=== PATIENT | male | born 1975 | race Caucasian/White ===

== ENCOUNTER → 2016-06-11 | Outpatient (CLI) | payer OTHER ==
--- NOTE | 2016-06-11 09:45 | NM ---
EXAMINATION TYPE: NM hepatobiliary w CCK DATE OF EXAM: 06/11/2016 9:27 AM COMPARISON: NONE HISTORY: Generalized abdominal pain TECHNIQUE: After the intravenous administration of 5.5 mCi Tc 99m Mebrofenin hepatobiliary scintigrap hy is performed. Immediate images post injection. FINDINGS: There is satisfactory initial accumulation of tracer by the liver. The gallbladder is visualized wit hin 6 minutes. The small bowel activity is noted within 8 minutes. At one hour CCK was administered , patient was injected with 1.6 mcg of Kinevac, and gallbladder ejection fraction is calculated at 28 %, which is below normal. Therefore there is no scintigraphic evidence of cystic or common bile jose j t obstruction to suggest acute cholecystitis or gallbladder dyskinesia. IMPRESSION: Abnormal low gallbladder ejection fraction
== END | disposition home or self-care (01) ==
LOC: RADNMMAIN 06:56
PROVIDERS: ATTEND Surgery
DX: R10.84 Generalized abdominal pain (principal)
CPT/HCPCS: 78227; A9537; J2805

== ENCOUNTER 2016-06-29 08:26 | Day surgery (SDC) | payer OTHER ==
[2016-06-24 11:47] VITALS: BMI 25.1
[~2016-06-29 08:26] MED LIST: DEXAMETHASONE SOD PHOSPHATE 10 MG/ML 1 ML VIAL IV ONE; HEPARIN SODIUM,PORCINE 5,000 UNIT/ML 1 ML VIAL SQ ONE; HYDROmorphone 1 MG/ML 1 ML SYRINGE IVP PRN; LACTATED RINGERS 1,000 ML IV SCH; MIDAZOLAM 2 MG/2 ML VIAL IV PRN; ONDANSETRON 4 MG/2 ML VIAL IVP ONE; ceFAZolin 2 GM in SODIUM CHLORIDE 0.9% 100 ML IVPB ONE
[2016-06-29] MEDS ORDERED: LIDOCAINE 1% 20 ML VIAL (10MG/ML) FOR IV START INTRADERMA ONE (09:01)
[2016-06-29] MEDS ORDERED: fentaNYL (PF) 50 MCG/ML 2 ML AMP IV ONE (09:09)
--- NOTE | 2016-06-29 09:34 | P.GSHP ---
History of Present Illness H&P Date: 06/29/16 Chief Complaint: Right upper quadrant pain This a 41-year-old male referred from Dr. Samson. Patient complaints of right upper quadrant pain. His recent HIDA scan shows a diminished ejection fraction consistent with biliary dyskinesia and chronic cholecystitis. - Constitutional Constitutional: Reports as per HPI Past Medical History Past Medical History: Deep Vein Thrombosis (DVT), Eye Disorder, GERD/Reflux, Musculoskeletal Disorder, Osteoarthritis (OA) Additional Past Medical History / Comment(s): LEFT EYE-" NMO" or neuromyelitis optica , HX OF FX X3 RIGHT LEG (RUN OVER BY HILO AT WORK), HX OF BOWEL RESECTION X6 WITH BOWEL PERFORATION AND WAS ON LIFE SUPPORT FOR 8 DAYS (2011). DIVERTICULOSIS, COLITIS. HX OF DVT LEG (2011), BIGEMINY WITH CARDIAC ABLATION. , HX OF HIATAL HERNIA WITH SURGERY., ARTHRITIS IN HIPS AND BACK, DDD WITH PAIN. , GENERALIZED WEAKNESS AND HAS BOUTS OF PARALYSIS SINCE SEPTEMBER 2014- HAVING TESTING FOR AUTO IMMUNE DISORDER., USES CANE ., PTS STATES HE IS HAVING NAUSEA AND VOMITING AND ABDOMINAL PAIN., HX OF C-DIFF (2011) History of Any Multi-Drug Resistant Organisms: None Reported Date of last positivie culture/infection: 2011 MDRO Source:: STOOL Past Surgical History: Appendectomy, Bowel Resection, Cardiac Ablation, Hernia Repair Additional Past Surgical History / Comment(s): BOWEL RESECTION X6- HAD BOWEL PERFORATION AND COLOSTOMY AND REVERSAL . (2011)., INGUINAL HERNIA , HIATAL HERNIA (FEB 2016), Past Anesthesia/Blood Transfusion Reactions: Previous Problems w/ Anesthesia Additional Past Anesthesia/Blood Transfusion Reaction / Comment(s): WOKE UP ONCE DURING SURGERY, POST-OP HEADACHE Past Psychological History: Anxiety, Depression Additional Psychological History / Comment(s): PTS STATES ANXIETY AND DEPRESSION COMES AND GOES- UNABLE TO WORK, CONSTANT PAIN, - NO RX. Smoking Status: Former smoker Past Alcohol Use History: Rare Additional Past Alcohol Use History / Comment(s): QUIT SMOKING 7-8 MONTHS AGO ( 2015). STARTED SMOKING AT AGE 10-11, SMOKED 1PPD THE LAST 3 YEARS Past Drug Use History: Marijuana Additional Drug Use History / Comment(s): NO MARIJUANA SINCE FEB 2016 - Past Family History Mother Family Medical History: No Reported History Father Family Medical History: AFIB, Cancer Additional Family Medical History / Comment(s): MELANOMA X2. FATHERS FAMILY HAS COLON CANCER HX. Medications and Allergies Home Medications Medication Instructions Recorded Confirmed Type Ascorbic Acid [Vitamin C] 1 tab PO DIRECTED 06/24/16 06/24/16 History Immune Booster Supplement 1 tab PO DAILY 06/24/16 06/24/16 History Allergies Allergy/AdvReac Type Severity Reaction Status Date / Time Iodinated Contrast Media - Allergy Severe Anaphylaxis Verified 06/24/16 11:21 Oral and [Iodinated Contrast Media - IV Dye] bee pollen Allergy Anaphylaxis Verified 06/24/16 11:21 shellfish derived [Shellfish] Allergy Anaphylaxis Verified 06/24/16 11:21 Sulfa (Sulfonamide Allergy low BP Verified 06/24/16 11:21 Antibiotics) Surgical - Exam Vital Signs Temp Pulse Resp BP Pulse Ox 97.6 F 69 18 122/84 99 06/29/16 08:58 06/29/16 08:58 06/29/16 08:58 06/29/16 08:58 06/29/16 08:58 - General well developed, no distress - Eyes PERRL - ENT normal pinna - Neck no masses - Respiratory normal expansion - Cardiovascular Rhythm: regular - Abdomen Mild right upper quadrant pain Abdomen: soft Assessment and Plan Plan: Right upper quadrant pain, abnormal HIDA scan. We'll perform laparoscopic cholecystectomy
[2016-06-29] MEDS ORDERED: PHENYLEPHRINE-0.9% NACL SYG 1 MG/10 ML SYRINGE ONE (09:49)
[2016-06-29] MEDS ORDERED: SUCCINYLCHOLINE CHLORIDE 100 MG/5 ML SYR IV ONE (09:49)
[2016-06-29] MEDS ORDERED: fentaNYL (PF) 50 MCG/ML 2 ML AMP ONE (09:49)
[2016-06-29] MEDS ORDERED: ROCURONIUM BROMIDE 10 MG/ML 10 ML VIAL IV ONE (09:49)
[2016-06-29] MEDS ORDERED: PROPOFOL 10 MG/ML 20 ML VIAL IV ONE (09:49)
[2016-06-29] MEDS ORDERED: GLYCOPYRROLATE 0.2 MG/ML 2 ML VIAL ONE (09:49)
[2016-06-29] MEDS ORDERED: NEOSTIGMINE 1 MG/ML 10 ML VIAL ONE (09:49)
[2016-06-29] MEDS ORDERED: MIDAZOLAM 2 MG/2 ML VIAL ONE (09:49)
[2016-06-29] MEDS ORDERED: BUPIVACAIN-EPI 0.25%-1:200,000 30 ML VIAL SQ ONE (10:12)
--- NOTE | 2016-06-29 10:53 | P.OP ---
Date of Procedure: 06/29/16 Preoperative Diagnosis: Cholecystitis Postoperative Diagnosis: Cholecystitis Procedure(s) Performed: Laparoscopic cholecystectomy Anesthesia: NIKOS Surgeon: Dimitri Crockett Estimated Blood Loss (ml): 5 Pathology: other (Gallbladder) Condition: stable Disposition: PACU Description of Procedure: The patient was placed on the operating table. The patient received a general endotracheal tube anesthesia. The patients abdomen was prepped and draped in the usual sterile fashion. The patient had extensive laparotomy scars on his abdomen. In the left upper quadrant a joann was made in the skin with a 11 blade and then a Veress needle was placed into the perineal cavity. And the abdomen was insufflated. After adequate insufflation a 5 mm blade less trocar was placed in the right lateral position under direct visitation. Following this the laparoscope was placed in the peritoneal cavity. There were extensive adhesions along the midline. Next using the 18-gauge needle for localization a area was found to the right of the midline where there was no adhesions and a 5 mm blade was trocar was placed into the peritoneal cavity. Next a fibrillar trocar was placed in the right subcostal position and then the adhesions to the midline were lysed using the Harmonic scissors. And then a 8 mm trocar was placed in the epigastric position. The gallbladder was grasped in the fundus and infundibulum. Traction on the gallbladder was placed in the lateral and the cephalad positions. The triangle of Calot was visualized.. The cystic duct was bluntly dissected until the union of the cystic duct and common bile duct was seen. The cystic duct was then divided and sealed with the Harmonic scissors. A PDS Endoloop was then placed throughout the cystic duct stump. The cystic artery divided and sealed with the Harmonic scissors. The gallbladder was then removed from the liver bed using Harmonic scissors. The gallbladder was then extracted through the epigastric port site. Operative field was checked for any bleeding spots and Harmonic scissors was used to coagulate the liver bed. The abdomen was irrigated. The trocars were removed. The skin was closed using interrupted 3- 0 Vicryl suture. Dermabond dressing were applied. The patient tolerated the procedure well.
[2016-06-29] MEDS ORDERED: LACTATED RINGERS 1,000 ML IV ONE (10:55)
[2016-06-29 11:00] VITALS: TEMP 98.2
[2016-06-29] MEDS ORDERED: MEPERIDINE 50 MG/ML SYRINGE IVP ONE (11:03)
[2016-06-29] MEDS ORDERED: HYDROmorphone 1 MG/ML 1 ML SYRINGE IVP ONE (11:27)
[2016-06-29] MEDS ORDERED: HYDROcodone/APAP 7.5-325MG 1 EACH TAB PO ONE (12:09)
[2016-06-29 12:47] VITALS: BP 102/70; PULSE 63; RESP 18
== END 2016-06-29 12:56 | disposition home or self-care (01) ==
LOC: OR 08:26
PROVIDERS: ATTEND Surgery
DX: K81.1 Chronic cholecystitis (principal); K66.0 Peritoneal adhesions (postprocedural) (postinfection); Z86.718 Personal history of other venous thrombosis and embolism; Z87.891 Personal history of nicotine dependence; Z79.891 Long term (current) use of opiate analgesic; Z88.9 Allergy status to unspecified drugs, medicaments and biological substances; Z88.2 Allergy status to sulfonamides; Z91.030 Bee allergy status; Z91.041 Radiographic dye allergy status; Z91.013 Allergy to seafood
CPT/HCPCS: 47562; 88304; J2250; J1644; J1100; J2710; J2175; J0690; J2405; J3010; J1170; J2370; J0330; J2704

== ENCOUNTER 2016-08-26 22:30 | Inpatient (IN) | payer OTHER ==
[2016-08-26] MEDS ORDERED: methylPREDNISolone SOD SUCCI 125 MG/2 ML VIAL IV STA (23:22)
--- NOTE | 2016-08-26 23:35 | ED ---
General Adult HPI - General Chief complaint: Eye Problems Stated complaint: Eye Problems Time Seen by Provider: 08/26/16 23:12 Source: patient Mode of arrival: ambulatory Limitations: no limitations - History of Present Illness Initial comments: Patient complains of pain around the eyes. He has a history of optic neuritis. He has a history of autoimmune disorder. Patient denies any fever, chills, chest pain or shortness of breath. He has no belly or back pain. He has no nausea or vomiting. He has no neck pain or stiffness. - Related Data Home Medications Medication Instructions Recorded Confirmed Fluocinonide/Emollient Base 1 applic TOPICAL BID 08/26/16 08/26/16 [Fluocinonide-E 0.05% Cream] Previous Rx's Medication Instructions Recorded HYDROcodone/APAP 7.5-325MG [[place] 1 tab PO Q6H PRN #28 tab 02/21/16 7.5-325] Allergies Allergy/AdvReac Type Severity Reaction Status Date / Time Iodinated Contrast Media - Allergy Severe Anaphylaxis Verified 08/26/16 23:32 Oral and [Iodinated Contrast Media - IV Dye] bee pollen Allergy Anaphylaxis Verified 08/26/16 23:32 shellfish derived [Shellfish] Allergy Anaphylaxis Verified 08/26/16 23:32 Sulfa (Sulfonamide Allergy low BP Verified 08/26/16 23:32 Antibiotics) Review of Systems ROS Statement: Those systems with pertinent positive or pertinent negative responses have been documented in the HPI. ROS Other: All systems not noted in ROS Statement are negative. Past Medical History Past Medical History: Deep Vein Thrombosis (DVT), Eye Disorder, GERD/Reflux, Musculoskeletal Disorder, Osteoarthritis (OA) Additional Past Medical History / Comment(s): LEFT EYE-" NMO" or neuromyelitis optica , HX OF FX X3 RIGHT LEG (RUN OVER BY DON AT WORK), HX OF BOWEL RESECTION X6 WITH BOWEL PERFORATION AND WAS ON LIFE SUPPORT FOR 8 DAYS (2011). DIVERTICULOSIS, COLITIS. HX OF DVT LEG (2011), BIGEMINY WITH CARDIAC ABLATION. , HX OF HIATAL HERNIA WITH SURGERY., ARTHRITIS IN HIPS AND BACK, DDD WITH PAIN. , GENERALIZED WEAKNESS AND HAS BOUTS OF PARALYSIS SINCE SEPTEMBER 2014- HAVING TESTING FOR AUTO IMMUNE DISORDER., USES CANE ., PTS STATES HE IS HAVING NAUSEA AND VOMITING AND ABDOMINAL PAIN., HX OF C-DIFF (2011) History of Any Multi-Drug Resistant Organisms: None Reported Date of last positivie culture/infection: 2011 MDRO Source:: STOOL Past Surgical History: Appendectomy, Bowel Resection, Cardiac Ablation, Hernia Repair Additional Past Surgical History / Comment(s): BOWEL RESECTION X6- HAD BOWEL PERFORATION AND COLOSTOMY AND REVERSAL . (2011)., INGUINAL HERNIA , HIATAL HERNIA (FEB 2016), Past Anesthesia/Blood Transfusion Reactions: Previous Problems w/ Anesthesia Additional Past Anesthesia/Blood Transfusion Reaction / Comment(s): WOKE UP ONCE DURING SURGERY, POST-OP HEADACHE Past Psychological History: Anxiety, Depression Additional Psychological History / Comment(s): PTS STATES ANXIETY AND DEPRESSION COMES AND GOES- UNABLE TO WORK, CONSTANT PAIN, - NO RX. Smoking Status: Former smoker Past Alcohol Use History: Rare Additional Past Alcohol Use History / Comment(s): QUIT SMOKING 7-8 MONTHS AGO ( 2015). STARTED SMOKING AT AGE 10-11, SMOKED 1PPD THE LAST 3 YEARS Past Drug Use History: Marijuana Additional Drug Use History / Comment(s): NO MARIJUANA SINCE FEB 2016 - Past Family History Mother Family Medical History: No Reported History Father Family Medical History: AFIB, Cancer Additional Family Medical History / Comment(s): MELANOMA X2. FATHERS FAMILY HAS COLON CANCER HX. General Exam Limitations: no limitations General appearance: alert, in no apparent distress Head exam: Present: atraumatic, normocephalic, normal inspection Eye exam: Present: normal appearance, PERRL, EOMI. Absent: scleral icterus, conjunctival injection, periorbital swelling ENT exam: Present: normal exam, mucous membranes moist Neck exam: Present: normal inspection. Absent: tenderness, meningismus, lymphadenopathy Respiratory exam: Present: normal lung sounds bilaterally. Absent: respiratory distress, wheezes, rales, rhonchi, stridor Cardiovascular Exam: Present: regular rate, normal rhythm, normal heart sounds. Absent: systolic murmur, diastolic murmur, rubs, gallop, clicks GI/Abdominal exam: Present: soft, normal bowel sounds. Absent: distended, tenderness, guarding, rebound, rigid Extremities exam: Present: normal inspection, full ROM, normal capillary refill. Absent: tenderness, pedal edema, joint swelling, calf tenderness Back exam: Present: normal inspection Neurological exam: Present: alert, oriented X3, CN II-XII intact Psychiatric exam: Present: normal affect, normal mood Skin exam: Present: warm, dry, intact, normal color. Absent: rash Course Vital Signs 08/26/16 22:38 Temperature 98.0 F Pulse Rate 18 L Respiratory 56 H Rate Blood Pressure 120/72 O2 Sat by Pulse 96 Oximetry Medical Decision Making - Medical Decision Making Patient presents with pain around the eyes. He likely has an optic neuritis. I ordered IV site Metro. I am constantly neurology. Patient will be admitted to the hospital. Disposition Clinical Impression: Optic neuritis Disposition: ADMITTED IP TO THIS HOSP Condition: Fair Time of Disposition: 23:35
[2016-08-26] MEDS ORDERED: NALOXONE 0.4 MG/ML 1 ML VIAL IV PRN (23:39)
[2016-08-26] MEDS ORDERED: ONDANSETRON 4 MG/2 ML VIAL IVP PRN (23:39)
[2016-08-26 23:48] LABS: CH 29.7; CHCM 34.4; HCT 46.5 % (39.0-53.0); HDW 2.55; HGB 15.8 gm/dL (13.0-17.5); MCH 29.4 pg (25.0-35.0); MCHC 34.1 g/dL (31.0-37.0); MCV 86.4 fL (80.0-100.0); Mean Platelet Volume 6.5; RBC 5.38 m/uL (4.30-5.90); RDW 13.1 % (11.5-15.5); WBC 9.6 k/uL (3.8-10.6)
[2016-08-26 23:59] LABS: ALT 35 U/L (21-72); AST 22 U/L (17-59); Alkaline Phosphatase 49 U/L (38-126); Anion Gap 13 mmol/L; Blood Urea Nitrogen 13 mg/dL (9-20); Calcium 10.2 mg/dL (8.4-10.2); Carbon Dioxide 24 mmol/L (22-30); Chloride 103 mmol/L (98-107); Glucose 97 mg/dL (74-99); Non-African American GFR(MDRD) >60 (>60 ml/min/1.73 sqM); Potassium 4.2 mmol/L (3.5-5.1); Sodium 140 mmol/L (137-145); Total Bilirubin 0.4 mg/dL (0.2-1.3); Total Protein 8.3 g/dL (6.3-8.2)
[2016-08-27] MEDS: HYDROcodone/APAP 5-325MG 1 EACH TAB PO PRN ×3 (00:16→08:17)
[2016-08-27 02:30] VITALS: BMI 27.1
[2016-08-27] MEDS: FAMOTIDINE 20 MG TAB PO SCH ×2 (08:18→22:16)
--- NOTE | 2016-08-27 11:15 | P.HPIM ---
History of Present Illness H&P Date: 08/27/16 Chief Complaint: Left eye pain This is a 41-year-old male, patient of Dr. Samson. 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 He has had workup at [facility]. His flareups are occurring about every 6-8 months. Patient reports sharp stabbing pain behind the left eye, blurry vision, twitching of the eye. As well as tightness around the gallop and I on the left side. He does also report some dizziness. Patient was given 1 dose of IV Solu-Medrol in the emergency room. Neurology has been consulted. He is reporting that his pain is not controlled. He also has chronic back pain. And takes Woodland. The Woodland is not helping his pain currently. Patient denies any nausea or vomiting, fevers chills or sweats. Denies any chest pain or shortness of breath. Denies any difficulty urinating. Denies any difficulty ambulating. Review of Systems Please refer to HPI otherwise unremarkable Past Medical History Past Medical History: Deep Vein Thrombosis (DVT), Eye Disorder, GERD/Reflux, Musculoskeletal Disorder, Osteoarthritis (OA) Additional Past Medical History / Comment(s): LEFT EYE-" NMO" or neuromyelitis optica , HX OF FX X3 RIGHT LEG (RUN OVER BY HILO AT WORK), HX OF BOWEL RESECTION X6 WITH BOWEL PERFORATION AND WAS ON LIFE SUPPORT FOR 8 DAYS (2011). DIVERTICULOSIS, COLITIS. HX OF DVT LEG (2011), BIGEMINY WITH CARDIAC ABLATION. , HX OF HIATAL HERNIA WITH SURGERY., ARTHRITIS IN HIPS AND BACK, DDD WITH PAIN. , GENERALIZED WEAKNESS AND HAS BOUTS OF PARALYSIS SINCE SEPTEMBER 2014- HAVING TESTING FOR AUTO IMMUNE DISORDER., USES CANE ., PTS STATES HE IS HAVING NAUSEA AND VOMITING AND ABDOMINAL PAIN., HX OF C-DIFF (2011) History of Any Multi-Drug Resistant Organisms: None Reported Date of last positivie culture/infection: 2011 MDRO Source:: STOOL Past Surgical History: Appendectomy, Bowel Resection, Cardiac Ablation, Hernia Repair Additional Past Surgical History / Comment(s): BOWEL RESECTION X6- HAD BOWEL PERFORATION AND COLOSTOMY AND REVERSAL . (2011)., INGUINAL HERNIA , HIATAL HERNIA (FEB 2016), Past Anesthesia/Blood Transfusion Reactions: Previous Problems w/ Anesthesia Additional Past Anesthesia/Blood Transfusion Reaction / Comment(s): WOKE UP ONCE DURING SURGERY, POST-OP HEADACHE Past Psychological History: Anxiety, Depression Additional Psychological History / Comment(s): PTS STATES ANXIETY AND DEPRESSION COMES AND GOES- UNABLE TO WORK, CONSTANT PAIN, - NO RX. Smoking Status: Former smoker Past Alcohol Use History: None Reported Additional Past Alcohol Use History / Comment(s): QUIT SMOKING 7-8 MONTHS AGO ( 2016). STARTED SMOKING AT AGE 10-11, SMOKED 1PPD THE LAST 3 YEARS Past Drug Use History: None Reported, Marijuana Additional Drug Use History / Comment(s): NO MARIJUANA SINCE FEB 2016 - Past Family History Mother Family Medical History: No Reported History Father Family Medical History: AFIB, Cancer Additional Family Medical History / Comment(s): MELANOMA X2. FATHERS FAMILY HAS COLON CANCER HX. Medications and Allergies Home Medications Medication Instructions Recorded Confirmed Type Fluocinonide/Emollient Base 1 applic TOPICAL BID 08/26/16 08/26/16 History [Fluocinonide-E 0.05% Cream] Allergies Allergy/AdvReac Type Severity Reaction Status Date / Time Iodinated Contrast Media - Allergy Severe Anaphylaxis Verified 08/26/16 23:32 Oral and [Iodinated Contrast Media - IV Dye] bee pollen Allergy Anaphylaxis Verified 08/26/16 23:32 shellfish derived [Shellfish] Allergy Anaphylaxis Verified 08/26/16 23:32 Sulfa (Sulfonamide Allergy low BP Verified 08/26/16 23:32 Antibiotics) Physical Exam Vitals: Vital Signs Temp Pulse Pulse Resp BP BP Pulse Ox 08/27/16 07:18 96.9 F L 83 16 106/67 96 08/27/16 01:29 97.4 F L 16 114/78 96 08/27/16 00:08 98.1 F 70 18 140/70 99 Intake and Output 08/26/16 08/27/16 08/27/16 22:59 06:59 14:59 Intake Total 240 Balance 240 Intake: Oral 240 Other: # Voids 1 Weight 85.9 kg 85.9 kg Patient Weight 08/28/16 06:59 Weight 85.9 kg Head normocephalic. Patient reports the left side of his for red and orbital area on the left side feels different wending palpated. Neck supple Lungs clear to auscultation bilaterally no wheezing or crackles Heart regular rate and rhythm S1-S2, no rub or gallop Abdomen is soft nontender nondistended positive bowel sounds no hepatosplenomegaly Extremities no edema Neuro alert and orientated to 3 Results CBC & Chem 7: 08/26/16 23:30 08/26/16 23:30 Thrombosis Risk Factor Assmnt - Choose All That Apply Any of the Below Risk Factors Present?: No Other Risk Factors: No Other congenital or acquired thrombophilia - If yes, enter type in comment: No Thrombosis Risk Factor Assessment Level: Very Low Risk Assessment and Plan Plan: 1. 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 Patient received 1 dose of IV Solu-Medrol. Neurology has been consulted. Nursing staff calling neurology for further steroid dosing. This is patient's third occurrence 2. Chronic back pain 3. History of GERD with previous Nissa fundoplication 4. History of diverticulitis and colitis requiring bowel resections colostomy and reversal of colostomy 5. History of cardiac arrhythmia requiring cardiac ablation 6. History of DVT of the leg over 4 years ago. He had completed anticoagulation treatment 7. Pain management: Resume patient's Woodland 7.5 also will add Dilaudid 1 mg every 4 hours as needed for breakthrough pain GI prophylaxis Pepcid and DVT prophylaxis Lovenox Time with Patient: Greater than 30 (Greater than 50% of the total time spent in counseling and coordination of care.I performed an examination of the patient and discussed their management with the physician Machine Heel Seat Laster. I have reviewed the Physician Machine Heel Seat Laster's notes and agree with the documented findings and plan of care)
[2016-08-27] MEDS: HYDROmorphone 1 MG/ML 1 ML SYRINGE IVP PRN ×3 (12:26→21:47)
[2016-08-27] MEDS: ENOXAPARIN 40 MG/0.4 ML SYRINGE SQ SCH (12:27)
[2016-08-27 13:30] LABS: Hemoglobin A1C 5.5 % (4.2-6.1)
[2016-08-27] MEDS: INSULIN LISPRO (humaLOG) 300 UNIT/3 ML VIAL SQ SCH ×4 (13:39→22:01)
--- NOTE | 2016-08-27 14:14 | MR ---
PRE AND POSTCONTRAST ENHANCED MRI OF THE BRAIN: CLINICAL HISTORY: Patient with neuromyelitis optica and headaches. COMPARISON: 01/02/2016 CONTRAST: 20 ML Multihance Multiplanar and multispin-echo imaging of the brain was performed both before and after the administr ation of contrast. The ventricles, basal cisterns and sulci overlying the cerebral convexities are within normal limits. There is no evidence for midline shift or mass effect. Acute intracranial hemorrhage or extra-axial collection is not evident. There are no abnormal areas of increased or decreased signal intensity within the brain parenchyma. Following contrast administration, there is no evidence for pathologic enhancement or enhancing mass. The paranasal sinuses and mastoid air cells are well-aerated. Optic nerves and globes appear symmetri c and unremarkable and unchanged from prior evaluation. IMPRESSION: Unremarkable pre and postcontrast enhanced MRI of the brain.
[2016-08-27] MEDS: HYDROcodone/APAP 7.5-325MG 1 EACH TAB PO PRN (15:13)
[2016-08-27 16:50] LABS: Glucose,Whole Blood 136 mg/dL (75-99)
[2016-08-27 22:07] LABS: Glucose,Whole Blood 135 mg/dL (75-99)
[2016-08-27] MEDS: BETAMETHASONE DIPROPIONATE 0.05% CREAM 15 GM TUBE TOPICAL SCH (22:14)
[2016-08-28] MEDS: HYDROcodone/APAP 7.5-325MG 1 EACH TAB PO PRN ×4 (00:30→19:06)
[2016-08-28] MEDS: HYDROmorphone 1 MG/ML 1 ML SYRINGE IVP PRN ×5 (02:10→20:53)
[2016-08-28 07:26] LABS: Glucose,Whole Blood 129 mg/dL (75-99)
[2016-08-28 07:45] LABS: Basophils % (A) 0 %; CH 29.7; CHCM 34.8; Eosinophils % (A) 0 %; HCT 44.7 % (39.0-53.0); HDW 2.48; HGB 14.9 gm/dL (13.0-17.5); Luc # (Auto) 0.04; Luc % (Auto) 0; Lymphocytes # (A) 1.6 k/uL (1.0-4.8); Lymphocytes % (A) 10 %; MCH 28.5 pg (25.0-35.0); MCHC 33.3 g/dL (31.0-37.0); MCV 85.7 fL (80.0-100.0); Mean Platelet Volume 6.4; Monocytes # (A) 0.2 k/uL (0-1.0); Monocytes % (A) 1 %; Neutrophils % (A) 89 %; RBC 5.22 m/uL (4.30-5.90); RDW 13.2 % (11.5-15.5); WBC 15.8 k/uL (3.8-10.6); WBC (Perox) 15.89
[2016-08-28 07:51] LABS: ALT 25 U/L (21-72); AST 18 U/L (17-59); Alkaline Phosphatase 47 U/L (38-126); Anion Gap 13 mmol/L; Blood Urea Nitrogen 11 mg/dL (9-20); Calcium 10.1 mg/dL (8.4-10.2); Carbon Dioxide 25 mmol/L (22-30); Chloride 101 mmol/L (98-107); Glucose 136 mg/dL (74-99); Non-African American GFR(MDRD) >60 (>60 ml/min/1.73 sqM); Sodium 139 mmol/L (137-145); Total Bilirubin 0.6 mg/dL (0.2-1.3)
[2016-08-28] MEDS: ENOXAPARIN 40 MG/0.4 ML SYRINGE SQ SCH (08:09)
[2016-08-28] MEDS: FAMOTIDINE 20 MG TAB PO SCH ×2 (08:12→20:53)
[2016-08-28] MEDS: INSULIN LISPRO (humaLOG) 300 UNIT/3 ML VIAL SQ SCH ×4 (08:12→22:06)
[2016-08-28] MEDS: BETAMETHASONE DIPROPIONATE 0.05% CREAM 15 GM TUBE TOPICAL SCH ×2 (08:12→20:53)
--- NOTE | 2016-08-28 11:35 | P.PN ---
Subjective This is a 41-year-old male, patient of Dr. Samson. 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 He has had workup at [facility]. His flareups are occurring about every 6-8 months. Patient reports sharp stabbing pain behind the left eye, blurry vision, twitching of the eye. Also some tightness around the scalp on the left side of his head. Patient has been on IV Solu-Medrol. He had an MRI of the brain completed which was negative. He is being treated for flareup of his neuromyelitis optica. Patient is noted some mild improvement in his pain. The blurry vision has resolved. Patient reports about 2 days since his last bowel movement. He has been started on stool softeners and was given prune juice. Also having some difficulty sleeping melatonin has been added. Pain is controlled with current regimen. He denies any chest pain, shortness of breath, nausea or vomiting. Denies any difficulty urinating. Objective - Vital Signs Vital signs: Vital Signs Temp 97.0 F L 08/28/16 07:24 Pulse 79 08/28/16 08:00 Resp 16 08/28/16 08:00 BP 112/80 08/28/16 07:24 Pulse Ox 95 08/28/16 07:24 Intake & Output 08/27/16 08/28/16 08/28/16 18:59 06:59 18:59 Intake Total 1510 850 320 Balance 1510 850 320 Weight 85.9 kg Intake: Intake, IV Titration 100 Amount methylPREDNISolone SOD 100 SUCC 500 mg In Sodium Chloride 0.9% 100 ml @ 100 mls/hr IVPB Q12HR RADHA Rx#:[id number] Oral 1410 850 320 Other: Voiding Method Toilet Toilet # Voids 1 2 - Exam Head normocephalic Neck supple Lungs clear to auscultation bilaterally no wheezing or crackles Heart regular rate and rhythm S1-S2, no rub or gallop Abdomen is soft nontender nondistended positive bowel sounds no hepatosplenomegaly Extremities no edema Neuro alert and orientated to 3 - Labs CBC & Chem 7: 08/28/16 07:06 08/28/16 07:06 Labs: Abnormal Lab Results - Last 24 Hours (Table) 08/27/16 08/27/16 08/28/16 Range/Units 16:36 21:56 07:06 WBC 15.8 H (3.8-10.6) k/uL Neutrophils # 14.0 H (1.3-7.7) k/uL Glucose (74-99) mg/dL POC Glucose (mg/dL) 136 H 135 H (75-99) mg/dL 08/28/16 08/28/16 Range/Units 07:06 07:17 WBC (3.8-10.6) k/uL Neutrophils # (1.3-7.7) k/uL Glucose 136 H (74-99) mg/dL POC Glucose (mg/dL) 129 H (75-99) mg/dL Assessment and Plan Plan: 1. 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 Continue IV Solu-Medrol 500 mg IV every 12 hours. MRI of the brain negative. Neurology consulted. Continue with current pain regimen with the IV Dilaudid and [place]. 2. Chronic back pain 3. History of GERD with previous Nissa fundoplication 4. History of diverticulitis and colitis requiring bowel resections colostomy and reversal of colostomy 5. History of cardiac arrhythmia requiring cardiac ablation 6. History of DVT of the leg over 4 years ago. He had completed anticoagulation treatment 7. Constipation: Prune juice, add Colace. Monitor. 8. Insomnia add melatonin GI prophylaxis Pepcid and DVT prophylaxis Lovenox I performed an examination of the patient and discussed their management with the physician Hospice Care Consultant. I have reviewed the Physician Hospice Care Consultant's notes and agree with the documented findings and plan of care
[2016-08-28 11:47] LABS: Glucose,Whole Blood 119 mg/dL (75-99)
[2016-08-28 14:37] LABS: Appearance,Urine Clear (Clear); Bilirubin,Urine Negative (Negative); Glucose,Urine (UA) Negative (Negative); Ketones,Urine Negative (Negative); Leukocyte Esterase,Urine Negative (Negative); Nitrite,Urine Negative (Negative); Protein,Urine Negative (Negative); Specific Gravity,Urine 1.008 (1.001-1.035); UA Billing (MACRO vs. MICRO) CHEM; Urobilinogen,Urine <2.0 mg/dL (<2.0)
[2016-08-28 17:06] LABS: Glucose,Whole Blood 112 mg/dL (75-99)
[2016-08-28] MEDS: DOCUSATE 100 MG CAP PO SCH (20:53)
[2016-08-28] MEDS: MELATONIN 3 MG TABLET PO SCH (20:53)
[2016-08-28 21:00] LABS: Glucose,Whole Blood 106 mg/dL (75-99)
[2016-08-29] MEDS: HYDROcodone/APAP 7.5-325MG 1 EACH TAB PO PRN ×4 (00:07→18:09)
[2016-08-29 07:07] LABS: Glucose,Whole Blood 166 mg/dL (75-99)
[2016-08-29 07:31] LABS: ALT 25 U/L (21-72); AST 18 U/L (17-59); Alkaline Phosphatase 39 U/L (38-126); Anion Gap 12 mmol/L; Blood Urea Nitrogen 19 mg/dL (9-20); Calcium 9.9 mg/dL (8.4-10.2); Carbon Dioxide 30 mmol/L (22-30); Chloride 99 mmol/L (98-107); Glucose 140 mg/dL (74-99); Non-African American GFR(MDRD) >60 (>60 ml/min/1.73 sqM); Potassium 4.4 mmol/L (3.5-5.1); Sodium 141 mmol/L (137-145); Total Bilirubin 0.6 mg/dL (0.2-1.3); Total Protein 7.7 g/dL (6.3-8.2)
[2016-08-29] MEDS: INSULIN LISPRO (humaLOG) 300 UNIT/3 ML VIAL SQ SCH ×4 (07:39→20:19)
[2016-08-29] MEDS: HYDROmorphone 1 MG/ML 1 ML SYRINGE IVP PRN ×4 (07:40→20:38)
[2016-08-29 07:57] LABS: Basophils % (A) 0 %; CH 29.5; CHCM 33.5; Eosinophils % (A) 0 %; HCT 44.6 % (39.0-53.0); HDW 2.42; HGB 14.7 gm/dL (13.0-17.5); Luc # (Auto) 0.05; Luc % (Auto) 0; Lymphocytes # (A) 1.2 k/uL (1.0-4.8); Lymphocytes % (A) 8 %; MCH 29.1 pg (25.0-35.0); MCHC 32.9 g/dL (31.0-37.0); MCV 88.5 fL (80.0-100.0); Mean Platelet Volume 6.9; Monocytes # (A) 0.1 k/uL (0-1.0); Monocytes % (A) 1 %; Neutrophils # (A) 12.5 k/uL (1.3-7.7); Neutrophils % (A) 90 %; RBC 5.04 m/uL (4.30-5.90); RDW 13.3 % (11.5-15.5); WBC 13.8 k/uL (3.8-10.6)
[2016-08-29] MEDS: BETAMETHASONE DIPROPIONATE 0.05% CREAM 15 GM TUBE TOPICAL SCH ×2 (08:43→20:17)
[2016-08-29] MEDS: FAMOTIDINE 20 MG TAB PO SCH ×2 (08:47→20:17)
[2016-08-29] MEDS: ENOXAPARIN 40 MG/0.4 ML SYRINGE SQ SCH (08:47)
[2016-08-29] MEDS: DOCUSATE 100 MG CAP PO SCH ×2 (08:47→20:17)
--- NOTE | 2016-08-29 10:53 | P.PN ---
Subjective Patient is feeling better today. No events overnight. Objective - Vital Signs Vital signs: Vital Signs Temp 98.1 F 08/29/16 07:00 Pulse 79 08/29/16 07:00 Resp 17 08/29/16 07:00 BP 110/70 08/29/16 07:00 Pulse Ox 97 08/29/16 07:00 Intake & Output 08/28/16 08/29/16 08/29/16 18:59 06:59 18:59 Intake Total 790 Balance 790 Weight 85.9 kg Intake: Oral 790 Other: Voiding Method Toilet Toilet Toilet # Voids 2 2 1 - Exam General: The patient is awake and alert, in no distress Eye: there is normal conjunctiva bilaterally. Neck: The neck is supple, there is no JVD. Cardiovascular: Normal S1-S2, no S3-S4, no murmurs. Respiratory: Lungs clear to auscultation bilaterally Gastrointestinal: Abdomen is soft, nontender Musculoskeletal: There is no pedal edema. Neurological:. Speech is normal. Skin: Skin is warm and dry - Labs CBC & Chem 7: 08/29/16 06:12 08/29/16 06:12 Labs: Abnormal Lab Results - Last 24 Hours (Table) 08/28/16 08/28/16 08/29/16 Range/Units 17:01 20:40 06:12 WBC 13.8 H (3.8-10.6) k/uL Neutrophils # 12.5 H (1.3-7.7) k/uL Glucose (74-99) mg/dL POC Glucose (mg/dL) 112 H 106 H (75-99) mg/dL 08/29/16 08/29/16 Range/Units 06:12 06:49 WBC (3.8-10.6) k/uL Neutrophils # (1.3-7.7) k/uL Glucose 140 H (74-99) mg/dL POC Glucose (mg/dL) 166 H (75-99) mg/dL Assessment and Plan Plan: 1. 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 Continue IV Solu-Medrol 500 mg IV every 12 hours. MRI of the brain negative. Neurology consulted. Continue with current pain regimen with the IV Dilaudid and [place]. 2. Chronic back pain 3. History of GERD with previous Nissa fundoplication 4. History of diverticulitis and colitis requiring bowel resections colostomy and reversal of colostomy 5. History of cardiac arrhythmia requiring cardiac ablation 6. History of DVT of the leg over 4 years ago. He had completed anticoagulation treatment 7. Constipation: Prune juice, add Colace. Monitor. 8. Insomnia add melatonin GI prophylaxis Pepcid and DVT prophylaxis Lovenox
[2016-08-29 11:48] LABS: Glucose,Whole Blood 116 mg/dL (75-99)
[2016-08-29 17:00] LABS: Glucose,Whole Blood 121 mg/dL (75-99)
[2016-08-29 20:17] LABS: Glucose,Whole Blood 139 mg/dL (75-99)
[2016-08-29] MEDS: MELATONIN 3 MG TABLET PO SCH (20:17)
[2016-08-29] MEDS ORDERED: HYDROcodone/APAP 7.5-325MG 1 EACH TAB ONE (23:52)
[2016-08-30] MEDS ORDERED: HYDROmorphone 1 MG/ML 1 ML SYRINGE ONE (01:00)
[2016-08-30] MEDS: HYDROmorphone 1 MG/ML 1 ML SYRINGE IVP PRN ×5 (04:11→22:42)
[2016-08-30] MEDS: HYDROcodone/APAP 7.5-325MG 1 EACH TAB PO PRN ×3 (05:46→21:19)
[2016-08-30 06:55] LABS: Glucose,Whole Blood 151 mg/dL (75-99)
[2016-08-30 07:10] LABS: Basophils % (A) 0 %; CH 29.7; Eosinophils % (A) 0 %; HDW 2.54; Luc # (Auto) 0.04; Luc % (Auto) 0; Lymphocytes # (A) 1.5 k/uL (1.0-4.8); Lymphocytes % (A) 9 %; MCH 28.9 pg (25.0-35.0); Mean Platelet Volume 6.7; Monocytes # (A) 0.6 k/uL (0-1.0); Monocytes % (A) 4 %; Neutrophils # (A) 13.9 k/uL (1.3-7.7); Neutrophils % (A) 87 %; RBC 4.82 m/uL (4.30-5.90); WBC 16.1 k/uL (3.8-10.6); WBC (Perox) 16.43
[2016-08-30 07:30] LABS: ALT 21 U/L (21-72); AST 15 U/L (17-59); Alkaline Phosphatase 39 U/L (38-126); Anion Gap 11 mmol/L; Blood Urea Nitrogen 13 mg/dL (9-20); Calcium 9.5 mg/dL (8.4-10.2); Carbon Dioxide 29 mmol/L (22-30); Chloride 98 mmol/L (98-107); Glucose 157 mg/dL (74-99); Non-African American GFR(MDRD) >60 (>60 ml/min/1.73 sqM); Sodium 138 mmol/L (137-145); Total Bilirubin 0.5 mg/dL (0.2-1.3); Total Protein 7.1 g/dL (6.3-8.2)
[2016-08-30] MEDS: INSULIN LISPRO (humaLOG) 300 UNIT/3 ML VIAL SQ SCH ×4 (07:52→22:36)
[2016-08-30] MEDS: DOCUSATE 100 MG CAP PO SCH ×2 (08:22→21:20)
[2016-08-30] MEDS: ENOXAPARIN 40 MG/0.4 ML SYRINGE SQ SCH (08:22)
[2016-08-30] MEDS: BETAMETHASONE DIPROPIONATE 0.05% CREAM 15 GM TUBE TOPICAL SCH ×2 (08:23→22:35)
[2016-08-30] MEDS: FAMOTIDINE 20 MG TAB PO SCH ×2 (08:23→21:20)
[2016-08-30 11:43] LABS: Glucose,Whole Blood 115 mg/dL (75-99)
--- NOTE | 2016-08-30 14:21 | P.PN ---
Subjective Patient is feeling better today. No events overnight. Objective - Vital Signs Vital signs: Vital Signs Temp 97.5 F L 08/30/16 07:00 Pulse 74 08/30/16 07:00 Resp 16 08/30/16 07:00 BP 110/71 08/30/16 07:00 Pulse Ox 95 08/30/16 07:00 Intake & Output 08/29/16 08/30/16 08/30/16 18:59 06:59 18:59 Intake Total 500 480 500 Balance 500 480 500 Intake: Oral 500 480 500 Other: Voiding Method Toilet Toilet Toilet # Voids 2 2 3 - Exam General: The patient is awake and alert, in no distress Eye: there is normal conjunctiva bilaterally. Neck: The neck is supple, there is no JVD. Cardiovascular: Normal S1-S2, no S3-S4, no murmurs. Respiratory: Lungs clear to auscultation bilaterally Gastrointestinal: Abdomen is soft, nontender Musculoskeletal: There is no pedal edema. Neurological:. Speech is normal. Skin: Skin is warm and dry - Labs CBC & Chem 7: 08/30/16 06:24 08/30/16 06:24 Labs: Abnormal Lab Results - Last 24 Hours (Table) 08/29/16 08/29/16 08/30/16 Range/Units 16:57 20:07 06:24 WBC 16.1 H (3.8-10.6) k/uL Neutrophils # 13.9 H (1.3-7.7) k/uL Creatinine (0.66-1.25) mg/dL Glucose (74-99) mg/dL POC Glucose (mg/dL) 121 H 139 H (75-99) mg/dL AST (17-59) U/L 08/30/16 08/30/16 08/30/16 Range/Units 06:24 06:49 11:38 WBC (3.8-10.6) k/uL Neutrophils # (1.3-7.7) k/uL Creatinine 0.64 L (0.66-1.25) mg/dL Glucose 157 H (74-99) mg/dL POC Glucose (mg/dL) 151 H 115 H (75-99) mg/dL AST 15 L (17-59) U/L Assessment and Plan Plan: 1. 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 Continue IV Solu-Medrol 500 mg IV every 12 hours. MRI of the brain negative. Neurology consulted but has not seen the patient he had. Nurse with double check that they are notified. Usually patient hit 5 days course of high-dose Solu-Medrol. Continue with current pain regimen with the IV Dilaudid and [place]. 2. Chronic back pain 3. History of GERD with previous Nissa fundoplication 4. History of diverticulitis and colitis requiring bowel resections colostomy and reversal of colostomy 5. History of cardiac arrhythmia requiring cardiac ablation 6. History of DVT of the leg over 4 years ago. He had completed anticoagulation treatment 7. Constipation: Prune juice, add Colace. Monitor. 8. Insomnia add melatonin GI prophylaxis Pepcid and DVT prophylaxis Lovenox
[2016-08-30 17:00] LABS: Glucose,Whole Blood 128 mg/dL (75-99)
[2016-08-30 20:00] LABS: Glucose,Whole Blood 136 mg/dL (75-99)
[2016-08-30] MEDS: MELATONIN 3 MG TABLET PO SCH (21:20)
[2016-08-31] MEDS: HYDROmorphone 1 MG/ML 1 ML SYRINGE IVP PRN ×5 (03:06→21:59)
[2016-08-31] MEDS: HYDROcodone/APAP 7.5-325MG 1 EACH TAB PO PRN ×3 (05:06→20:39)
[2016-08-31 08:02] LABS: Glucose,Whole Blood 131 mg/dL (75-99)
[2016-08-31 08:16] LABS: Basophils % (A) 0 %; CH 29.3; CHCM 34.1; Eosinophils % (A) 0 %; HCT 43.7 % (39.0-53.0); HDW 2.41; HGB 14.9 gm/dL (13.0-17.5); Luc # (Auto) 0.07; Luc % (Auto) 1; Lymphocytes # (A) 1.4 k/uL (1.0-4.8); Lymphocytes % (A) 10 %; MCH 29.5 pg (25.0-35.0); MCHC 34.2 g/dL (31.0-37.0); MCV 86.2 fL (80.0-100.0); Mean Platelet Volume 6.5; Monocytes # (A) 0.4 k/uL (0-1.0); Monocytes % (A) 3 %; Neutrophils # (A) 12.4 k/uL (1.3-7.7); Neutrophils % (A) 87 %; RBC 5.06 m/uL (4.30-5.90); WBC 14.2 k/uL (3.8-10.6); WBC (Perox) 14.98
[2016-08-31] MEDS: INSULIN LISPRO (humaLOG) 300 UNIT/3 ML VIAL SQ SCH ×4 (08:31→20:50)
[2016-08-31] MEDS: ENOXAPARIN 40 MG/0.4 ML SYRINGE SQ SCH (08:33)
[2016-08-31] MEDS: DOCUSATE 100 MG CAP PO SCH ×2 (08:33→20:38)
[2016-08-31] MEDS: BETAMETHASONE DIPROPIONATE 0.05% CREAM 15 GM TUBE TOPICAL SCH ×2 (08:33→20:37)
[2016-08-31] MEDS: FAMOTIDINE 20 MG TAB PO SCH ×2 (08:34→20:38)
[2016-08-31 08:35] LABS: ALT 26 U/L (21-72); AST 13 U/L (17-59); Alkaline Phosphatase 37 U/L (38-126); Anion Gap 10 mmol/L; Blood Urea Nitrogen 18 mg/dL (9-20); Calcium 9.6 mg/dL (8.4-10.2); Carbon Dioxide 30 mmol/L (22-30); Chloride 98 mmol/L (98-107); Glucose 125 mg/dL (74-99); Non-African American GFR(MDRD) >60 (>60 ml/min/1.73 sqM); Potassium 4.9 mmol/L (3.5-5.1); Sodium 138 mmol/L (137-145); Total Bilirubin 0.5 mg/dL (0.2-1.3); Total Protein 7.1 g/dL (6.3-8.2)
--- NOTE | 2016-08-31 10:10 | P.PN ---
Subjective This is a 41-year-old male, patient of Dr. Samson. 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 He has had workup at [facility]. His flareups are occurring about every 6-8 months. Patient reports sharp stabbing pain behind the left eye, blurry vision, twitching of the eye. Also some tightness around the scalp on the left side of his head. Patient has been on IV Solu-Medrol. He had an MRI of the brain completed which was negative. He is being treated for flareup of his neuromyelitis optica. Patient is noted some mild improvement in his pain. The blurry vision has resolved. Patient reports about 2 days since his last bowel movement. He has been started on stool softeners and was given prune juice. Also having some difficulty sleeping melatonin has been added. Pain is controlled with current regimen. He denies any chest pain, shortness of breath, nausea or vomiting. Denies any difficulty urinating. 08/31/2016 patient is reporting improvement in the left eye pain. Vision is back to normal. He is on day 4 of steroids usually does 5 days a steroids. Awaiting neurology evaluation. Patient reports having bowel movements. Having issues with urinary frequency and difficulty starting urine stream. Urinalysis and culture were negative for any UTI. Patient reports no prior history of prostate problems. Symptoms have been going on for the last 2-3 months. Patient was bladder scan no evidence of urinary retention Objective - Vital Signs Vital signs: Vital Signs Temp 97.7 F 08/31/16 07:00 Pulse 57 L 08/31/16 08:00 Resp 18 08/31/16 08:00 BP 116/76 08/31/16 07:00 Pulse Ox 97 08/30/16 23:00 Intake & Output 08/30/16 08/31/16 08/31/16 18:59 06:59 18:59 Intake Total 500 790 Balance 500 790 Weight 85.9 kg Intake: Oral 500 790 Other: Voiding Method Toilet Toilet Toilet # Voids 3 2 2 - Exam Head normocephalic Neck supple Lungs clear to auscultation bilaterally no wheezing or crackles Heart regular rate and rhythm S1-S2, no rub or gallop Abdomen is soft nontender nondistended positive bowel sounds no hepatosplenomegaly Extremities no edema Neuro alert and orientated to 3 - Labs CBC & Chem 7: 08/31/16 07:40 08/31/16 07:40 Labs: Abnormal Lab Results - Last 24 Hours (Table) 08/30/16 08/30/16 08/30/16 Range/Units 11:38 16:56 19:57 WBC (3.8-10.6) k/uL Neutrophils # (1.3-7.7) k/uL Glucose (74-99) mg/dL POC Glucose (mg/dL) 115 H 128 H 136 H (75-99) mg/dL AST (17-59) U/L Alkaline Phosphatase (38-126) U/L 08/31/16 08/31/16 08/31/16 Range/Units 07:40 07:40 08:01 WBC 14.2 H (3.8-10.6) k/uL Neutrophils # 12.4 H (1.3-7.7) k/uL Glucose 125 H (74-99) mg/dL POC Glucose (mg/dL) 131 H (75-99) mg/dL AST 13 L (17-59) U/L Alkaline Phosphatase 37 L (38-126) U/L Assessment and Plan Plan: 1. 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 Continue IV Solu-Medrol 500 mg IV every 12 hours. MRI of the brain negative. Neurology was consulted. They have still not seen the patient. Discussed with nursing staff to anibal neurologist. Continue with current pain regimen with the IV Dilaudid and [place]. 2. Chronic back pain 3. History of GERD with previous Nissa fundoplication 4. History of diverticulitis and colitis requiring bowel resections colostomy and reversal of colostomy 5. History of cardiac arrhythmia requiring cardiac ablation 6. History of DVT of the leg over 4 years ago. He had completed anticoagulation treatment 7. Constipation: Prune juice, add Colace. Monitor. 8. Insomnia add melatonin GI prophylaxis Pepcid and DVT prophylaxis Lovenox I performed an examination of the patient and discussed their management with the physician Energy Attorney. I have reviewed the Physician Energy Attorney's notes and agree with the documented findings and plan of care
[2016-08-31 11:29] LABS: Glucose,Whole Blood 141 mg/dL (75-99)
[2016-08-31 17:10] LABS: Glucose,Whole Blood 126 mg/dL (75-99)
[2016-08-31] MEDS: TAMSULOSIN 0.4 MG CAP.ER.24H PO SCH (18:25)
[2016-08-31 20:16] LABS: Glucose,Whole Blood 143 mg/dL (75-99)
[2016-08-31] MEDS: MELATONIN 3 MG TABLET PO SCH (20:37)
[2016-09-01] MEDS: HYDROmorphone 1 MG/ML 1 ML SYRINGE IVP PRN (02:39)
[2016-09-01 07:27] LABS: Glucose,Whole Blood 144 mg/dL (75-99)
[2016-09-01] MEDS: HYDROcodone/APAP 7.5-325MG 1 EACH TAB PO PRN ×3 (08:20→23:50)
[2016-09-01] MEDS: INSULIN LISPRO (humaLOG) 300 UNIT/3 ML VIAL SQ SCH ×4 (08:25→23:25)
[2016-09-01] MEDS: BETAMETHASONE DIPROPIONATE 0.05% CREAM 15 GM TUBE TOPICAL SCH ×2 (08:26→19:55)
[2016-09-01] MEDS: DOCUSATE 100 MG CAP PO SCH ×2 (08:26→19:56)
[2016-09-01] MEDS: ENOXAPARIN 40 MG/0.4 ML SYRINGE SQ SCH (08:27)
[2016-09-01] MEDS: FAMOTIDINE 20 MG TAB PO SCH ×2 (08:27→19:56)
--- NOTE | 2016-09-01 09:31 | CONS ---
DATE OF CONSULTATION: 08/31/2016 CHIEF COMPLAINT: Visual changes. HISTORY OF PRESENT ILLNESS: Mr. Valencia is a 41-year-old male who is being evaluated today on 08/31/16 by the neurology service per the request of Dr. Maurer for visual changes. The patient was brought into [facility] Emergency Room with complaints of blurred vision involving the left eye. He was also having severe eye pain, which he describes as a dull pain that can be sharp at times. The patient does have a left visual field cut involving the left eye but this is chronic. The patient has had several episodes of optic neuritis in the past. He has been worked up at [facility] and at [facility] neurology departments. Initially, he was thought to have neuromyelitis optica. The patient is unclear if his blood test was positive for this. He did have an MRI of the brain on this admission, which was within normal limits. He has been started on IV Solu-Medrol. The patient was actually admitted on 08/28/16 and neurology consultation was put in for Dr. Smyth. It was later discovered today that Dr. Smyth is not taking call and I was contacted with this consultation today. At the time of my evaluation, the patient reports that his blurred vision and eye pain are greater than 90% improved. He continues to have a left visual field cut involving the left eye, which is his baseline. His CBC today showed mild leukocytosis at 14.2, likely related to his IV steroid infusion. His comprehensive metabolic profile and urinalysis were normal. The patient states that he has not had a recent MRI of the cervical spine. PAST MEDICAL HISTORY: 1. Recurrent optic neuritis. 2. History of deep venous thrombosis. 3. Osteoarthritis. 4. Possible neuromyelitis optica history. 5. Depression, anxiety disorder. 6. History of bowel resection. 7. Cardiac ablation. 8. Hernia repair. 9. Appendectomy. SOCIAL HISTORY: The patient quit smoking approximately 8 months ago. He denies any alcohol or IV drug use. FAMILY HISTORY: Positive for heart disease and cancer. HOME MEDICATIONS: Reviewed in the chart. ALLERGIES: IV DYE, SHELLFISH, SULFA DRUGS, BEE POLLEN. REVIEW OF SYSTEMS: CONSTITUTIONAL: Negative. EYES: As mentioned above. ENT: Negative. CARDIOVASCULAR: Negative. RESPIRATORY: Negative. NEUROLOGICAL: As mentioned above. He denied any lateralizing numbness or weakness. GASTROINTESTINAL: Positive for occasional heartburn. GENITOURINARY: Negative. MUSCULOSKELETAL: Positive for frequent joint pain. PSYCHIATRIC: Positive for history of depression and anxiety. DERMATOLOGICAL: Negative. ENDOCRINE: Negative. PHYSICAL EXAM: Vital signs show a temperature of 98.2, pulse 81, respirations 16, blood pressure 128/75. GENERAL APPEARANCE: The patient is a well-developed male who appears to be in no acute distress. HEENT: Normocephalic, atraumatic, no facial asymmetry is seen. Extraocular muscles are intact. He does have a left visual field cut involving his left eye only. Neck is supple with no masses felt. CARDIOVASCULAR: Regular rate and rhythm. ABDOMEN: Nontender, nondistended. Extremities showed no edema or clubbing. NEUROLOGICAL EXAM: The patient is alert, aware, and oriented x3. Speech and language are normal. Cranial nerve testing was normal except for left eye lateral visual field cut as mentioned above. Strength is full in all 4 extremities. Sensory exam was normal to light touch in all 4 extremities. Gait was normal. No tremors or seizure-like activity is seen. No dysmetria is noticed on kewbyf-huyy-rxqosz testing. IMPRESSION: 1. Optic neuritis, left eye. 2. Blurred vision. 3. Left eye pain. 4. Questionable demyelinating disease, neuromyelitis optica. RECOMMENDATIONS: The patient's symptoms have significantly improved as mentioned above. I will keep him on Solu-Medrol 500mg IV q12 hours and he will receive his last dose tonight. The patient will be cleared from a neurology standpoint tomorrow morning for discharge. He will need an updated MRI of the cervical spine, which will be done in the outpatient setting. A VEP will also be ordered in the outpatient setting. The patient Dr. Smyth in the past and he will follow up with him after discharge. Continue the rest of your current workup and management. I will continue to follow with you. Further recommendations to follow. I reviewed the entire workup with the patient including his MRI of the brain with and without contrast, which was normal and he was reassured from that standpoint. Thank you for allowing me to participate in the care of your patient. If you have any questions, please feel free to contact me. JUDY
[2016-09-01 12:18] LABS: Glucose,Whole Blood 127 mg/dL (75-99)
[2016-09-01 17:35] LABS: Glucose,Whole Blood 140 mg/dL (75-99)
[2016-09-01] MEDS: TAMSULOSIN 0.4 MG CAP.ER.24H PO SCH (18:35)
--- NOTE | 2016-09-01 19:36 | P.PN ---
Subjective Principal diagnosis: optic neuritis This is a 41-year-old male, patient of Dr. Samson. 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 He has had workup at [facility]. His flareups are occurring about every 6-8 months. Patient reports sharp stabbing pain behind the left eye, blurry vision, twitching of the eye. Also some tightness around the scalp on the left side of his head. Patient has been on IV Solu-Medrol. He had an MRI of the brain completed which was negative. He is being treated for flareup of his neuromyelitis optica. Patient is noted some mild improvement in his pain. The blurry vision has resolved. On review of systems Patient denies any chest pain no shortness of breath no fever or chills no headache no nausea or vomiting no abdominal pain no urinary symptoms Patient reports about 2 days since his last bowel movement. He has been started on stool softeners and was given prune juice. Also having some difficulty sleeping melatonin has been added. Pain is controlled with current regimen. He denies any chest pain, shortness of breath, nausea or vomiting. Denies any difficulty urinating. Objective - Vital Signs Vital signs: Vital Signs Temp 98 F 09/01/16 15:01 Pulse 87 09/01/16 16:00 Resp 16 09/01/16 16:00 BP 115/87 09/01/16 15:01 Pulse Ox 97 09/01/16 15:01 Intake & Output 09/01/16 09/01/16 09/02/16 06:59 18:59 06:59 Other: Voiding Method Toilet # Voids 1 2 - Exam In general patient is alert and oriented 3 in no apparent distress HEENT head normocephalic and atraumatic Neck is supple no JVD no goiter no lymphadenopathy Chest exam reveals a few scattered rhonchi no wheezing Cardiac exam reveals regular heart sounds S1 and S2 no gallops no murmurs Abdomen is soft nontender no organomegaly Extremity exam reveals no edema no cyanosis or clubbing - Labs CBC & Chem 7: 08/31/16 07:40 08/31/16 07:40 Labs: Abnormal Lab Results - Last 24 Hours (Table) 08/31/16 09/01/16 09/01/16 Range/Units 20:16 07:25 12:03 POC Glucose (mg/dL) 143 H 144 H 127 H (75-99) mg/dL 09/01/16 Range/Units 17:20 POC Glucose (mg/dL) 140 H (75-99) mg/dL Assessment and Plan Plan: 1. 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 Continue IV Solu-Medrol 500 mg IV every 12 hours. MRI of the brain negative. Neurology was consulted. They have still not seen the patient. Discussed with nursing staff to anibal neurologist. Continue with current pain regimen with the IV Dilaudid and [place]. 2. Chronic back pain 3. History of GERD with previous Nissa fundoplication 4. History of diverticulitis and colitis requiring bowel resections colostomy and reversal of colostomy 5. History of cardiac arrhythmia requiring cardiac ablation 6. History of DVT of the leg over 4 years ago. He had completed anticoagulation treatment 7. Constipation: Prune juice, add Colace. Monitor. 8. Insomnia add melatonin GI prophylaxis Pepcid and DVT prophylaxis Lovenox Patient is receiving his last dose of IV Solu-Medrol today plan is for discharge tomorrow
[2016-09-01] MEDS: MELATONIN 3 MG TABLET PO SCH (19:56)
[2016-09-01 20:32] LABS: Glucose,Whole Blood 177 mg/dL (75-99)
[2016-09-02 02:12] VITALS: RESP 17
[2016-09-02 07:41] LABS: Glucose,Whole Blood 149 mg/dL (75-99)
[2016-09-02 07:43] LABS: ALT 23 U/L (21-72); AST 16 U/L (17-59); Alkaline Phosphatase 37 U/L (38-126); Anion Gap 10 mmol/L; Blood Urea Nitrogen 20 mg/dL (9-20); Carbon Dioxide 25 mmol/L (22-30); Chloride 101 mmol/L (98-107); Glucose 137 mg/dL (74-99); Non-African American GFR(MDRD) >60 (>60 ml/min/1.73 sqM); Sodium 136 mmol/L (137-145); Total Bilirubin 0.7 mg/dL (0.2-1.3); Total Protein 6.5 g/dL (6.3-8.2)
[2016-09-02 07:45] VITALS: BP 118/76; PULSE 84; TEMP 97.3
[2016-09-02] MEDS: HYDROcodone/APAP 7.5-325MG 1 EACH TAB PO PRN ×2 (07:45→13:44)
[2016-09-02] MEDS: INSULIN LISPRO (humaLOG) 300 UNIT/3 ML VIAL SQ SCH ×2 (07:46→12:50)
[2016-09-02 07:50] LABS: Basophils # (A) 0.1 k/uL (0-0.2); Basophils % (A) 0 %; CH 29.5; CHCM 34.7; Eosinophils % (A) 0 %; HCT 43.5 % (39.0-53.0); HDW 2.37; HGB 14.9 gm/dL (13.0-17.5); Luc # (Auto) 0.06; Luc % (Auto) 0; Lymphocytes # (A) 1.3 k/uL (1.0-4.8); Lymphocytes % (A) 9 %; MCH 29.2 pg (25.0-35.0); MCHC 34.3 g/dL (31.0-37.0); MCV 85.1 fL (80.0-100.0); Mean Platelet Volume 6.4; Monocytes # (A) 0.4 k/uL (0-1.0); Monocytes % (A) 3 %; Neutrophils # (A) 13.3 k/uL (1.3-7.7); Neutrophils % (A) 88 %; RBC 5.11 m/uL (4.30-5.90); RDW 12.9 % (11.5-15.5); WBC 15.1 k/uL (3.8-10.6); WBC (Perox) 14.85
[2016-09-02] MEDS: BETAMETHASONE DIPROPIONATE 0.05% CREAM 15 GM TUBE TOPICAL SCH (07:52)
[2016-09-02] MEDS: DOCUSATE 100 MG CAP PO SCH (07:53)
[2016-09-02] MEDS: ENOXAPARIN 40 MG/0.4 ML SYRINGE SQ SCH (07:53)
[2016-09-02] MEDS: FAMOTIDINE 20 MG TAB PO SCH (07:53)
[2016-09-02 12:01] LABS: Glucose,Whole Blood 113 mg/dL (75-99)
--- NOTE | 2016-09-25 11:42 | P.DS ---
Providers Date of admission: 08/28/16 14:53 Expected date of discharge: 09/02/16 Attending physician: Nick Maurer Consults: 08/31/16 15:10 Consult Physician Routine Consulting Provider: Mireya Quigley Consult Reason/Comments: neuromyelitis optica Do you want consulting provider notified?: Yes Primary care physician: Dinora Spain Hospital Course: Discharge diagnosis 1. 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 Continue IV Solu-Medrol 500 mg IV every 12 hours. MRI of the brain negative. Patient completed steroid treatment during his hospitalization 2. Chronic back pain 3. History of GERD with previous Nissa fundoplication 4. History of diverticulitis and colitis requiring bowel resections colostomy and reversal of colostomy 5. History of cardiac arrhythmia requiring cardiac ablation 6. History of DVT of the leg over 4 years ago. He had completed anticoagulation treatment 7. Constipation: Prune juice, add Colace. Monitor. 8. Insomnia add melatonin Hospital course This is a 41-year-old male, patient of Dr. Samson. 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 He has had workup at [facility]. His flareups are occurring about every 6-8 months. Patient reports sharp stabbing pain behind the left eye, blurry vision, twitching of the eye. Also some tightness around the scalp on the left side of his head. Patient has been on IV Solu-Medrol. He had an MRI of the brain completed which was negative. He is being treated for flareup of his neuromyelitis optica. Patient received treatment with a high dose of IV steroids. Patient completed steroid treatment during his hospitalization. His eye pain and vision did show improvement. He was stable for discharge home. He'll follow-up with neurology in his PCP in the office. Please refer to chart for any further details Please note that I am dictating this discharge summary for Dr. Garcia. I did not see are examined the patient the day of this discharge. Patient Condition at Discharge: Stable Plan - Discharge Summary New Discharge Prescriptions: Continue HYDROcodone/APAP 7.5-325MG [[place] 7.5-325] 1 tab PO Q6H PRN #28 tab PRN Reason: Pain Fluocinonide/Emollient Base [Fluocinonide-E 0.05% Cream] 1 applic TOPICAL BID Discharge Medication List HYDROcodone/APAP 7.5-325MG [[place] 7.5-325] 1 tab PO Q6H PRN #28 tab 02/21/16 [Rx ] Fluocinonide/Emollient Base [Fluocinonide-E 0.05% Cream] 1 applic TOPICAL BID [History] Follow up Appointment(s)/Referral(s): Sukhjinder Smyth MD [STAFF PHYSICIAN] - 10/02/16 10:15 am (FOLLOW UP 1-2 WEEKS ) Dinora Spain MD [Primary Care Provider] - 1-2 days (Office will call pt with f /u appt.) Patient Instructions/Handouts: Optic Neuritis (DC) Discharge Disposition: HOME SELF-CARE
== END 2016-09-02 13:55 | disposition home or self-care (01) | DRG 60 ==
LOC: EC 22:30 → 3SUR 23:42 → OBSVTOIN 08-28 14:53
PROVIDERS: ADMIT Internal Medicine; ATTEND Internal Medicine
DX: G36.0 Neuromyelitis optica [Devic] (principal); F32.9 Major depressive disorder, single episode, unspecified; D72.829 Elevated white blood cell count, unspecified; F41.9 Anxiety disorder, unspecified; G89.29 Other chronic pain; K21.9 Gastro-esophageal reflux disease without esophagitis; T38.0X5A Adverse effect of glucocorticoids and synthetic analogues, initial encounter; Z86.718 Personal history of other venous thrombosis and embolism; Z87.891 Personal history of nicotine dependence; Z88.2 Allergy status to sulfonamides; Z91.041 Radiographic dye allergy status; Z91.013 Allergy to seafood; R73.9 Hyperglycemia, unspecified; K59.00 Constipation, unspecified; G47.00 Insomnia, unspecified; N40.1 Benign prostatic hyperplasia with lower urinary tract symptoms; R35.0 Frequency of micturition
CPT/HCPCS: 36415; 70553; 80053; 81003; 83036; 85025; 85027; 87086

== ENCOUNTER → 2016-12-08 | Outpatient (CLI) | payer OTHER ==
--- NOTE | 2016-12-08 22:06 | CT ---
EXAMINATION TYPE: CT abdomen pelvis w con DATE OF EXAM: 12/08/2016 COMPARISON: Previous exam 06/09/2012 HISTORY: Increased Abdominal pain CT DLP: 1428 mGycm Automated exposure control for dose reduction was used. TECHNIQUE: Helical acquisition of images from the lung bases through the pelvis have been completed. CONTRAST: Performed with Oral Contrast and with IV Contrast, patient injected with 100 mL of Omnipaque 300. FINDINGS: LUNG BASES: No significant abnormality is appreciated. There is a right lower lobe calcified granulom a, there are calcified right hilar nodes AORTA: No significant abnormality is appreciated. LIVER/GB: Liver shows low attenuation likely due to fatty infiltration. Gallbladder is not seen PANCREAS: No significant abnormality is seen. SPLEEN: Multiple calcifications compatible with old granulomatous disease ADRENALS: No significant abnormality is seen. KIDNEYS: Subcentimeter cortical cysts are noted, no stone or hydronephrosis REPRODUCTIVE ORGANS: No significant abnormality is seen BOWEL: There is rectosigmoid colonic wall thickening present. Suspect there is an anastomosis presen t in the left lower quadrant. Postop changes present at the gastroesophageal junction. Filling defect in the gastric cardia may be due to postop change, correlate for appropriate history. FREE AIR: No Free Air visible. ASCITES: None visible. PELVIC ADENOPATHY: None visualized. RETROPERITONEAL ADENOPATHY: No Retroperitoneal Adenopathy visible. URINARY BLADDER: Bladder wall is thickened similar to prior exam, correlate to exclude cystitis. OSSEOUS STRUCTURES: No significant abnormality is seen. IMPRESSION: CORRELATE FOR HISTORY OF COLITIS. POSTOP CHANGES. OLD GRANULOMATOUS DISEASE. FINDINGS IN THE STOMACH DESCRIBED. HEPATIC STEATOSIS.
== END | disposition home or self-care (01) ==
LOC: RADCTMAIN 17:13
PROVIDERS: ATTEND Family Medicine
DX: K76.0 Fatty (change of) liver, not elsewhere classified (principal); K63.89 Other specified diseases of intestine; R10.30 Lower abdominal pain, unspecified; Z91.09 Other allergy status, other than to drugs and biological substances; Z98.890 Other specified postprocedural states
CPT/HCPCS: 74177; Q9967

== ENCOUNTER 2016-12-25 06:56 | Day surgery (SDC) | payer OTHER ==
[2016-12-24 13:36] VITALS: BMI 27.0
[~2016-12-25 06:56] MED LIST changes: -DEXAMETHASONE SOD PHOSPHATE 10 MG/ML 1 ML VIAL IV ONE; -HEPARIN SODIUM,PORCINE 5,000 UNIT/ML 1 ML VIAL SQ ONE; -HYDROmorphone 1 MG/ML 1 ML SYRINGE IVP PRN; -MIDAZOLAM 2 MG/2 ML VIAL IV PRN; -ONDANSETRON 4 MG/2 ML VIAL IVP ONE; -ceFAZolin 2 GM in SODIUM CHLORIDE 0.9% 100 ML IVPB ONE
[2016-12-25 07:06] VITALS: TEMP 97
[2016-12-25] MEDS ORDERED: LACTATED RINGERS 1,000 ML IV ONE (07:15)
[2016-12-25] MEDS ORDERED: PROPOFOL 10 MG/ML 20 ML VIAL IV ONE (07:46)
--- NOTE | 2016-12-25 07:59 | P.PCN ---
Date of Procedure: 12/25/16 Preoperative Diagnosis: Postoperative Diagnosis: Procedure(s) Performed: BRIEF HISTORY: Patient is a 41-year-old, pleasant, white male, scheduled for an upper endoscopy as a part of evaluation of abdominal discomfort, intermittent dysphagia and early satiety for the last 1 year duration antireflux surgery. As a part of evaluation he recently had a CT of the abdomen done that showed filling defect in the fundus of the stomach and hence he scheduled for an upper endoscopy to evaluate further. PROCEDURE PERFORMED: Esophagogastroduodenoscopy with biopsy. PREOPERATIVE DIAGNOSIS: Abdominal pain, intermittent dysphagia and early satiety of 1 year duration. IV sedation per anesthesia. PROCEDURE: After informed consent was obtained, the patient was brought into the endoscopy unit. IV sedation was administered by Anesthesia under continuous monitoring. Initially the Olympus GIF-140 video endoscope was inserted into the mouth. Esophagus intubated without any difficulty. It was gradually advanced into the stomach and duodenum and carefully examined. The bulb and the second part of the duodenum appeared normal. Biopsies were done from this area to rule out celiac disease. The scope at this time was withdrawn to the stomach, adequately insufflated with air, and upon careful examination, mucosa of the antrum had mild mottling of the mucosa and biopsies were done from this area. The, body, cardia and the fundus appeared normal. There was evidence of antireflux surgery which appears to be intact. The scope was then withdrawn into the esophagus. The GE junction was located at 40 cm from the incisors. There was a 2 mm island of Lynch's appearing mucosa just proximal to the GE junction and this was biopsied. The rest of the esophagus appeared normal. There were no erosions or ulcerations seen and the patient tolerated the procedure well. IMPRESSION: 1. Mild antral gastritis. 2. Short segment Lynch's esophagus. RECOMMENDATIONS: The findings of this examination were discussed with the patient as well as his family. He was advised to follow with the biopsy results. If the biopsy confirms the presence of Lynch's esophagus he did have a repeat upper endoscopy in 2 years. In the meantime he was advised on small frequent meals. Implants: Indications for Procedure: Operative Findings: Description of Procedure:
[2016-12-25 08:13] VITALS: RESP 18
[2016-12-25 08:24] VITALS: BP 117/84; PULSE 70
== END 2016-12-25 08:47 | disposition home or self-care (01) ==
LOC: ORWHC2ENDO 06:56
PROVIDERS: ATTEND Internal Medicine Gastroenterology
DX: K29.50 Unspecified chronic gastritis without bleeding (principal); K22.70 Barrett's esophagus without dysplasia; R68.81 Early satiety; I49.9 Cardiac arrhythmia, unspecified; R00.8 Other abnormalities of heart beat; Z79.891 Long term (current) use of opiate analgesic; Z79.899 Other long term (current) drug therapy; Z88.2 Allergy status to sulfonamides; Z91.09 Other allergy status, other than to drugs and biological substances
CPT/HCPCS: 88305; 88342; 43239; J2704

== ENCOUNTER → 2017-05-11 | Outpatient (CLI) | payer OTHER ==
--- NOTE | 2017-05-11 21:34 | CT ---
EXAMINATION TYPE: CT abdomen pelvis w con DATE OF EXAM: 05/11/2017 COMPARISON: CT abdomen and pelvis December 08, 2016. HISTORY: Abdominal pain with history of multiple surgeries per patient. Diverticulitis and diarrhea p er order. CT DLP: 1386 mGycm, Automated Exposure Control for Dose Reduction was Utilized. CONTRAST: CT scan of the abdomen and pelvis is performed with oral and with IV Contrast, patient injected with 100 mL of Omnipaque 300. FINDINGS: LUNG BASES: Linear scarring posteriorly right lung base is redemonstrated. There is stable calcified 4 mm nodule axial image 12 medial to this. LIVER/GB: Gallbladder is not visualized and presumed surgically absent. PANCREAS: No significant abnormality is seen. SPLEEN: A few calcifications scattered throughout the spleen are redemonstrated. ADRENALS: No significant abnormality is seen. KIDNEYS: Subcentimeter low dense lesion anteriorly right kidney midpole level axial image 34 series 3 is too small to further characterize for presumed benign and stable. Bladder wall is mildly thickene d, this could be products of enlarged prostate gland. Correlate clinically. BOWEL: Oral contrast reaches level of proximal left colon. There is no suspicious small or large bow el dilatation. There are surgical sutures and clips at level of sigmoid colon identified. There is mi ld to moderate wall thickening in the mid to distal left colon and visualized sigmoid colon most prom inent near sutures and clips. No significant surrounding inflammatory change is seen. PROSTATE/SEMINAL VESICLES: Prostate gland is heterogeneous appearance to slightly enlarged in size, c orrelate for early BPH in patient of this age. LYMPH NODES: No greater than 1cm abdominal or pelvic lymph nodes are appreciated. OSSEOUS STRUCTURES: Some prominent Schmorl nodes near thoracolumbar junction are redemonstrated. OTHER: No significant additional abnormality is seen. IMPRESSION: Prior partial colectomy of the left colon with sutures sigmoid colon level redemonstrated . There is suggestion of mild colitis centered at this level more prominent than prior study. Differe ntial includes infectious or inflammatory etiologies. Correlate clinically.
== END | disposition home or self-care (01) ==
LOC: RADCTMAIN 19:01
PROVIDERS: ATTEND Surgery
DX: R19.7 Diarrhea, unspecified (principal); Z91.013 Allergy to seafood; Z91.041 Radiographic dye allergy status; Z98.890 Other specified postprocedural states
CPT/HCPCS: 74177; Q9967

== ENCOUNTER 2017-06-21 13:49 | Inpatient (IN) | payer OTHER ==
[2017-06-21 14:37] LABS: Appearance,Urine Clear (Clear); Bilirubin,Urine Negative (Negative); Blood,Urine Negative (Negative); Color,Urine Yellow; Glucose,Urine (UA) Negative (Negative); Ketones,Urine Negative (Negative); Leukocyte Esterase,Urine Negative (Negative); Nitrite,Urine Negative (Negative); PH, Urine 6.5 (5.0-8.0); Protein,Urine Trace (Negative); Specific Gravity,Urine 1.019 (1.001-1.035); Urobilinogen,Urine <2.0 mg/dL (<2.0)
[2017-06-21 14:38] LABS: Basophils # (A) 0.1 k/uL (0-0.2); Basophils % (A) 1 %; Eosinophils # (A) 0.4 k/uL (0-0.7); Eosinophils % (A) 5 %; HCT 45.1 % (39.0-53.0); HGB 15.3 gm/dL (13.0-17.5); Lymphocytes # (A) 3.3 k/uL (1.0-4.8); Lymphocytes % (A) 36 %; MCH 28.4 pg (25.0-35.0); MCHC 33.8 g/dL (31.0-37.0); MCV 83.9 fL (80.0-100.0); Mean Platelet Volume 6.5; Monocytes # (A) 0.4 k/uL (0-1.0); Monocytes % (A) 4 %; Neutrophils # (A) 4.9 k/uL (1.3-7.7); Neutrophils % (A) 53 %; Platelet Count 299 k/uL (150-450); RBC 5.37 m/uL (4.30-5.90); RDW 13.1 % (11.5-15.5); WBC 9.3 k/uL (3.8-10.6)
[2017-06-21 14:46] LABS: ALT 25 U/L (21-72); AST 19 U/L (17-59); Albumin 4.5 g/dL (3.5-5.0); Alkaline Phosphatase 47 U/L (38-126); Amylase 124 U/L (30-110); Anion Gap 11 mmol/L; Blood Urea Nitrogen 12 mg/dL (9-20); Carbon Dioxide 31 mmol/L (22-30); Chloride 100 mmol/L (98-107); Glucose 90 mg/dL (74-99); Lipase 1387 U/L (23-300); Potassium 4.4 mmol/L (3.5-5.1); Sodium 142 mmol/L (137-145); Total Bilirubin 0.3 mg/dL (0.2-1.3); Total Protein 7.6 g/dL (6.3-8.2)
--- NOTE | 2017-06-21 15:10 | XR ---
EXAMINATION TYPE: XR KUB DATE OF EXAM: 06/21/2017 3:04 PM CLINICAL HISTORY: Right-sided flank pain for one week. History of appendectomy, bowel resection, col itis and diverticulitis TECHNIQUE: Single upright image of the abdomen is obtained. COMPARISON: None. FINDINGS: Scattered gas is seen in non-distended small bowel loops. Gas and fecal material is seen in non-distended colon. There is no pneumoperitoneum. Scattered calcifications in the region of the spl een could relate to splenic granulomas. The lung bases are clear and the osseous structures are intac t. IMPRESSION: Nonobstructive bowel gas pattern.
[2017-06-21] MEDS ORDERED: ONDANSETRON 4 MG/2 ML VIAL IVP STA (15:41)
[2017-06-21] MEDS ORDERED: MORPHINE SULFATE 4 MG/ML SYRINGE IVP STA (15:41)
[2017-06-21] MEDS ORDERED: ONDANSETRON 4 MG/2 ML VIAL IVP PRN (15:41)
[2017-06-21] MEDS ORDERED: PANTOPRAZOLE 40 MG/10 ML VIAL IVP STA (15:41)
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
[2017-06-21 17:03] VITALS: BMI 25.8
[2017-06-21] MEDS: SODIUM CHLORIDE 0.9% 1,000 ML IV SCH (18:21)
[2017-06-21] MEDS: NICOTINE 7MG/24HR PATCH TRANSDERM SCH (20:28)
[2017-06-21] MEDS: CIPROFLOXACIN HCL 500 MG TAB PO SCH (20:28)
[2017-06-21] MEDS: KETOROLAC 30 MG/ML 1 ML VIAL IVP PRN (20:28)
[2017-06-21] MEDS: MORPHINE SULFATE 4 MG/ML SYRINGE IVP PRN (22:21)
[2017-06-22] MEDS: MORPHINE SULFATE 4 MG/ML SYRINGE IVP PRN ×2 (02:18→08:13)
[2017-06-22] MEDS: SODIUM CHLORIDE 0.9% 1,000 ML IV SCH ×3 (02:19→18:09)
[2017-06-22] MEDS: KETOROLAC 30 MG/ML 1 ML VIAL IVP PRN ×3 (05:37→22:49)
[2017-06-22 08:02] LABS: Basophils # (A) 0.1 k/uL (0-0.2); Basophils % (A) 1 %; Eosinophils # (A) 0.2 k/uL (0-0.7); Eosinophils % (A) 3 %; HCT 41.1 % (39.0-53.0); HGB 13.4 gm/dL (13.0-17.5); Lymphocytes # (A) 2.1 k/uL (1.0-4.8); Lymphocytes % (A) 35 %; MCHC 32.6 g/dL (31.0-37.0); MCV 85.7 fL (80.0-100.0); Mean Platelet Volume 6.8; Monocytes # (A) 0.3 k/uL (0-1.0); Monocytes % (A) 5 %; Neutrophils # (A) 3.3 k/uL (1.3-7.7); Neutrophils % (A) 55 %; Platelet Count 246 k/uL (150-450); RBC 4.79 m/uL (4.30-5.90); RDW 13.3 % (11.5-15.5); WBC 6.1 k/uL (3.8-10.6)
[2017-06-22] MEDS: CIPROFLOXACIN HCL 500 MG TAB PO SCH (08:14)
[2017-06-22] MEDS: NICOTINE 7MG/24HR PATCH TRANSDERM SCH (08:14)
[2017-06-22 08:33] LABS: Amylase 59 U/L (30-110); Anion Gap 8 mmol/L; Blood Urea Nitrogen 14 mg/dL (9-20); Calcium 8.8 mg/dL (8.4-10.2); Carbon Dioxide 30 mmol/L (22-30); Chloride 102 mmol/L (98-107); Glucose 86 mg/dL (74-99); Lipase 192 U/L (23-300); Potassium 4.4 mmol/L (3.5-5.1); Sodium 140 mmol/L (137-145)
[2017-06-22] MEDS ORDERED: PANTOPRAZOLE 40 MG/10 ML VIAL IVP SCH (09:00)
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
--- NOTE | 2017-06-22 11:32 | P.HPIM ---
History of Present Illness H&P Date: 06/22/17 Chief Complaint: Abdominal pain and right-sided flank pain This is a 42-year-old male, patient of Dr. Samson. He has a known past medical history of neuromyelitis optica with the left eye, chronic back pain, GERD status post Nissa publication, diverticulitis and colitis requiring bowel resection colostomy and reversal, Lynch's esophagus and DVT completed anticoagulation treatment several years ago. Patient also has a history of cholecystectomy and appendectomy. Patient presents to the emergency room with complaints of right upper quadrant epigastric and right flank abdominal pain. Patient was recently treated with clindamycin for possible UTI or prostatitis by a urologist out of [place]. He had been treated with Cipro for 2 weeks. And just started another course of Cipro. Patient believes it was for UTI. Urinalysis for this admission is negative. However, patient complains of unable to fully empty his bladder, urinary frequency hesitancy and dribbling. He had a computed tomography scan in April 2017 that did show slightly enlarged prostate and bladder wall thickening. He is requesting for urology consult. However, patient continued to have significant right upper quadrant abdominal pain. She was found to have amylase of 124 and lipase of 1087. He was admitted to the hospice for acute pancreatitis. Made nothing by mouth started on IV fluids and given IV pain medications. Amylase and lipase have normalized. Surgical service has evaluated patient and started a clear liquid diet. Patient denies any alcohol use. Has had his gallbladder removed over a year ago. Check triglyceride level. The only new medication and the only medication patient is on his Cipro. GI service will be consulted. Patient's still complaining mostly of this right-sided flank pain. Admits to having nausea but this is chronic for patient due to his multiple abdominal surgeries. Reports no new changes in his stools. Admits to having some chills. Denies any fever or sweats. Denies any burning with urination or any blood in the urine. Review of Systems Please refer to HPI otherwise unremarkable Past Medical History Past Medical History: Deep Vein Thrombosis (DVT), Eye Disorder, GERD/Reflux, Musculoskeletal Disorder, Osteoarthritis (OA), Pneumonia, Prostate Disorder Additional Past Medical History / Comment(s): LEFT EYE-" NMO" or neuromyelitis optica (autoimmune disease that effects optic nerve and spina cord) , HX OF FX X3 RIGHT LEG (RUN OVER BY DON AT WORK), DIVERTICULOSIS, COLITIS. HX OF DVT LEG (2011), ARTHRITIS IN HIPS AND BACK, DDD WITH PAIN., GENERALIZED WEAKNESS AND HAS BOUTS OF PARALYSIS SINCE SEPTEMBER 2014- USES CANE HX OF C-DIFF (2011) History of Any Multi-Drug Resistant Organisms: C-DIFF Date of last positivie culture/infection: 2011 MDRO Source:: None Past Surgical History: Appendectomy, Bowel Resection, Cardiac Ablation, Cholecystectomy, Hernia Repair Additional Past Surgical History / Comment(s): BOWEL RESECTION X6- HAD BOWEL PERFORATION AND COLOSTOMY AND REVERSAL . (2011)., INGUINAL HERNIA , HIATAL HERNIA (FEB 2016), COLONOSCOPY Past Anesthesia/Blood Transfusion Reactions: Previous Problems w/ Anesthesia Additional Past Anesthesia/Blood Transfusion Reaction / Comment(s): WOKE UP ONCE DURING SURGERY, POST-OP HEADACHE Past Psychological History: Anxiety, Depression Additional Psychological History / Comment(s): Health and monetary based. states, "not clinical." Smoking Status: Current every day smoker Past Alcohol Use History: None Reported Additional Past Alcohol Use History / Comment(s): SMOKES ABOUT 2 CIGARETTES DAILY. QUIT SMOKING 7-8 MONTHS AGO (2015). STARTED SMOKING AT AGE 10-11, SMOKED 1PPD THE LAST 3 YEARS Past Drug Use History: Marijuana Additional Drug Use History / Comment(s): MEDICAL MARIJUANA - Past Family History Mother Family Medical History: No Reported History Father Family Medical History: AFIB, Cancer Additional Family Medical History / Comment(s): MELANOMA X2. aunt with pancreatic cancer Medications and Allergies Home Medications Medication Instructions Recorded Confirmed Type Ciprofloxacin HCl [Cipro] 500 mg PO Q12HR 06/21/17 06/21/17 History Allergies Allergy/AdvReac Type Severity Reaction Status Date / Time Iodinated Contrast- Oral and Allergy Severe Anaphylaxis Verified 06/21/17 15:14 IV Dye [Iodinated Contrast Media - IV Dye] bee pollen Allergy Anaphylaxis Verified 06/21/17 15:14 iodine Allergy Anaphylaxis Verified 06/21/17 15:14 shellfish derived [Shellfish] Allergy Anaphylaxis Verified 06/21/17 15:14 Sulfa (Sulfonamide Allergy low BP Verified 06/21/17 15:14 Antibiotics) Physical Exam Vitals: Vital Signs Temp Pulse Pulse Resp BP BP Pulse Ox 06/22/17 06:17 97.4 F L 62 18 94/57 96 06/21/17 22:52 97.7 F 61 18 94/63 96 06/21/17 22:51 18 06/21/17 17:00 96.1 F L 53 L 18 134/92 98 06/21/17 16:10 98.3 F 63 18 123/84 97 06/21/17 13:51 98.3 F 84 18 151/83 97 Intake and Output 06/21/17 06/22/17 06/22/17 22:59 06:59 14:59 Intake Total 0 0 Balance 0 0 Intake: Oral 0 0 Other: # Voids 1 3 Weight 81.64 kg Head normocephalic Neck supple Lungs clear to auscultation bilaterally no wheezing or crackles Heart regular rate and rhythm S1-S2, no rub or gallop Abdomen is soft nondistended epigastric right upper quadrant tenderness and right flank tenderness with palpation no skin color changes. Extremities no edema Neuro alert and orientated to 3 Results CBC & Chem 7: 06/22/17 07:24 06/22/17 07:24 Labs: Abnormal Lab Results - Last 24 Hours (Table) 06/21/17 06/21/17 Range/Units 14:24 14:24 Carbon Dioxide 31 H (22-30) mmol/L Amylase 124 H (30-110) U/L Lipase 1387 H (23-300) U/L Urine Protein Trace H (Negative) Thrombosis Risk Factor Assmnt - Choose All That Apply Any of the Below Risk Factors Present?: Yes Each Factor Represents 1 point: Hx of IBD Other Risk Factors: Yes Each Risk Factor Represents 3 Points: History of DVT/PE Other congenital or acquired thrombophilia - If yes, enter type in comment: No Thrombosis Risk Factor Assessment Total Risk Factor Score: 4 Thrombosis Risk Factor Assessment Level: Moderate Risk Assessment and Plan Assessment: 1. Acute pancreatitis: Exact etiology unclear. Patient denies any alcohol use. He's had a cholecystectomy about a year ago. Will check triglyceride level complete abdominal ultrasound and consult GI service. Continue with IV fluid hydration. Amylase and lipase have normalized. And liquid diet has been started by surgical service. 2. Urinary symptoms with concerns of enlarged prostate and bladder wall thickening noted on a computed tomography scan in April 2017. We'll consult urology service. Check for postvoid residual to monitor for any urinary retention. Urinalysis negative for infection does show trace protein. 3. Treated recently for UTI with Cipro. 4. Nicotine dependence: Discussed smoking cessation. We'll increase nicotine patch 14 mg daily 5. History of GERD status post Nissa fundal publication 6. History of diverticulitis and colitis requiring bowel resection with colostomy and reversal of colostomy 7. History of DVT of the leg several years ago completed anticoagulation treatment. 8. History of Neuromyelitis optica left only GI prophylaxis Protonix and DVT prophylaxis Lovenox Time with Patient: Greater than 30 (Greater than 50% of the total time spent in counseling and coordination of care.I performed an examination of the patient and discussed their management with the physician [employer]. I have reviewed the Physician [employer]'s notes and agree with the documented findings and plan of care)
--- NOTE | 2017-06-22 12:56 | US ---
EXAMINATION TYPE: US abdomen complete DATE OF EXAM: 06/22/2017 COMPARISON: 05/11/2017 CLINICAL HISTORY: pancreatitis. Pain EXAM MEASUREMENTS: Liver Length: 16.6 cm Gallbladder Wall: Surgically absent CBD: 0.4 cm Spleen: 12.9 cm Right Kidney: 12.6 x 5.9 x 4.8 cm Left Kidney: 11.4 x 5.5 x 4.9 cm Technical limitations due to large amount of overlying bowel content Pancreas: Obscured by bowel gas Liver: appears wnl Gallbladder: Surgically absent Evidence for sonographic Sanches's sign: no CBD: appears wnl Spleen: granulomas seen Right Kidney: no evidence of hydronephrosis Left Kidney: no evidence of hydronephrosis Upper IVC: wnl Abd Aorta: visualized portions appear wnl IMPRESSION: 1. Postcholecystectomy 2. Splenic granuloma. 3. The pancreas is limited by overlying bowel gas which obscures its visualization. If there is juan jose rn for an pancreatitis or pancreatic pathology correlate with CT scan.
[2017-06-22] MEDS: ENOXAPARIN 40 MG/0.4 ML SYRINGE SQ SCH (14:01)
[2017-06-22] MEDS: NICOTINE 14MG/24HR PATCH TRANSDERM SCH (14:01)
[2017-06-22] MEDS: HYDROcodone/APAP 5-325MG 1 EACH TAB PO PRN ×3 (15:00→23:38)
--- NOTE | 2017-06-22 19:48 | P.GSCN ---
History of Present Illness Consult date: 06/22/17 History of present illness: This 42 yo male was admitted with abdominal pain, probable pancreatitis. We were asked t see the patient because of voiding dysfunction and probable uti. 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 Hisurine is clear Review of Systems ROS unobtainable: due to endotracheal tube - Constitutional Reports anorexia - Gastrointestinal Reports abdominal pain - Genitourinary Reports as per HPI Past Medical History Past Medical History: Deep Vein Thrombosis (DVT), Eye Disorder, GERD/Reflux, Musculoskeletal Disorder, Osteoarthritis (OA), Pneumonia, Prostate Disorder Additional Past Medical History / Comment(s): LEFT EYE-" NMO" or neuromyelitis optica (autoimmune disease that effects optic nerve and spina cord) , HX OF FX X3 RIGHT LEG (RUN OVER BY HILO AT WORK), DIVERTICULOSIS, COLITIS. HX OF DVT LEG (2011), ARTHRITIS IN HIPS AND BACK, DDD WITH PAIN., GENERALIZED WEAKNESS AND HAS BOUTS OF PARALYSIS SINCE SEPTEMBER 2014- USES CANE HX OF C-DIFF (2011) History of Any Multi-Drug Resistant Organisms: C-DIFF Year Discovered:: 2011 MDRO Source:: None Past Surgical History: Appendectomy, Bowel Resection, Cardiac Ablation, Cholecystectomy, Hernia Repair Additional Past Surgical History / Comment(s): BOWEL RESECTION X6- HAD BOWEL PERFORATION AND COLOSTOMY AND REVERSAL . (2011)., INGUINAL HERNIA , HIATAL HERNIA (FEB 2016), COLONOSCOPY Past Anesthesia/Blood Transfusion Reactions: Previous Problems w/ Anesthesia Additional Past Anesthesia/Blood Transfusion Reaction / Comm: WOKE UP ONCE DURING SURGERY, POST-OP HEADACHE Past Psychological History: Anxiety, Depression Additional Psychological History / Comment(s): Health and monetary based. states, "not clinical." Smoking Status: Current every day smoker Past Alcohol Use History: None Reported Additional Past Alcohol Use History / Comment(s): SMOKES ABOUT 2 CIGARETTES DAILY. QUIT SMOKING 7-8 MONTHS AGO (2015). STARTED SMOKING AT AGE 10-11, SMOKED 1PPD THE LAST 3 YEARS Past Drug Use History: Marijuana Additional Drug Use History / Comment(s): MEDICAL MARIJUANA - Past Family History Mother Family Medical History: No Reported History Father Family Medical History: AFIB, Cancer Additional Family Medical History / Comment(s): MELANOMA X2. aunt with pancreatic cancer Medications and Allergies Home Medications Medication Instructions Recorded Confirmed Type Ciprofloxacin HCl [Cipro] 500 mg PO Q12HR 06/21/17 06/21/17 History Allergies Allergy/AdvReac Type Severity Reaction Status Date / Time Iodinated Contrast- Oral and Allergy Severe Anaphylaxis Verified 06/21/17 15:14 IV Dye [Iodinated Contrast Media - IV Dye] bee pollen Allergy Anaphylaxis Verified 06/21/17 15:14 iodine Allergy Anaphylaxis Verified 06/21/17 15:14 shellfish derived [Shellfish] Allergy Anaphylaxis Verified 06/21/17 15:14 Sulfa (Sulfonamide Allergy low BP Verified 06/21/17 15:14 Antibiotics) Surgical - Exam Vital Signs Temp Pulse Resp BP Pulse Ox 98.3 F 84 18 151/83 97 06/21/17 13:51 06/21/17 13:51 06/21/17 13:51 06/21/17 13:51 06/21/17 13:51 - General well developed, well nourished, no distress - Eyes PERRL - ENT no hearing loss - Neck no masses, trachea midline - Respiratory normal expansion, normal respiratory effort - Cardiovascular Rhythm: regular - Abdomen Abdomen: soft, non tender - Genitourinary small prostate normal penis with no external lesions, testicles present - Rectum Rectum: normal sphincter tone, no hemorrhoids - Integumentary no rash, no growths - Musculoskeletal normal posture - Psychiatric oriented to time, oriented to person, oriented to place, speech is normal, memory intact Results - Labs 06/22/17 07:24 06/22/17 07:24 Abnormal Lab Results - Last 24 Hours (Table) 06/22/17 Range/Units 07:24 Triglycerides 266 H (<150) mg/dL Diabetes panel 06/22/17 06/22/17 Range/Units 07:24 07:24 Sodium 140 (137-145) mmol/L Potassium 4.4 (3.5-5.1) mmol/L Chloride 102 (98-107) mmol/L Carbon Dioxide 30 (22-30) mmol/L BUN 14 (9-20) mg/dL Creatinine 0.87 (0.66-1.25) mg/dL Glucose 86 (74-99) mg/dL Calcium 8.8 (8.4-10.2) mg/dL Triglycerides 266 H (<150) mg/dL Calcium panel 06/22/17 Range/Units 07:24 Calcium 8.8 (8.4-10.2) mg/dL Pituitary panel 06/22/17 Range/Units 07:24 Sodium 140 (137-145) mmol/L Potassium 4.4 (3.5-5.1) mmol/L Chloride 102 (98-107) mmol/L Carbon Dioxide 30 (22-30) mmol/L BUN 14 (9-20) mg/dL Creatinine 0.87 (0.66-1.25) mg/dL Glucose 86 (74-99) mg/dL Calcium 8.8 (8.4-10.2) mg/dL Adrenal panel 06/22/17 Range/Units 07:24 Sodium 140 (137-145) mmol/L Potassium 4.4 (3.5-5.1) mmol/L Chloride 102 (98-107) mmol/L Carbon Dioxide 30 (22-30) mmol/L BUN 14 (9-20) mg/dL Creatinine 0.87 (0.66-1.25) mg/dL Glucose 86 (74-99) mg/dL Calcium 8.8 (8.4-10.2) mg/dL Assessment and Plan Assessment: Impression: Luts, non infectious. 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 I will try tamsulosin but that usually doesnt work very well He may eventually need to learn how to do cic
[2017-06-23] MEDS: HYDROcodone/APAP 5-325MG 1 EACH TAB PO PRN ×3 (04:04→14:54)
[2017-06-23] MEDS: SODIUM CHLORIDE 0.9% 1,000 ML IV SCH ×3 (04:04→18:35)
[2017-06-23] MEDS: PANTOPRAZOLE 40 MG TABLET PO SCH (08:13)
[2017-06-23] MEDS: ENOXAPARIN 40 MG/0.4 ML SYRINGE SQ SCH (08:13)
[2017-06-23] MEDS: KETOROLAC 30 MG/ML 1 ML VIAL IVP PRN ×2 (08:13→17:18)
[2017-06-23] MEDS: NICOTINE 14MG/24HR PATCH TRANSDERM SCH (08:13)
--- NOTE | 2017-06-23 08:48 | P.CONS ---
History of Present Illness - Reason for Consult Consult date: 06/23/17 Pancreatitis Requesting physician: Luke Garcia - History of Present Illness 42-year-old gentleman patient of Dr. Spain with a past medical history of acalculus cholecystectomy, bowel resection with ostomy reversal, DVT, neuromyelitis optica, colonic diverticulosis, arrhythmia. Admitted with 10 day history of right mid quadrant right flank pain with hesitancy frequency prescribed Cipro in the outpatient setting. Consult requested for elevated pancreatic enzymes 1 day evaluation for possible pancreatitis. Denies fever chills hematemesis hematochezia melena. Aside from the pain in the right mid quadrant flank region he also had some discomfort in the midepigastric region lasted for about a day or so but quickly resolved. Admission amylase 124. Lipase 1087. Triglycerides 266. Calcium 8.8. White count 9.3. He will of 15.3. Pancreatic enzymes resolved the next day. LFTs within normal limits. Ultrasound abdomen could not visualize the pancreas. No history of pancreatitis. No history of alcoholism. No recent medications with the exception of Cipro which he has had in the past without problems. Presently being evaluated by urology for possible noninfectious LUTS. Review of Systems Constitutional: Denies fever, chills, sweats, weight gain, or loss. HEENT: History of neuromyelitis optica. Negative for migraines, blurred vision or loss, earaches, drainage, tinnitus, oral mucosal lesions, dysphagia, or odynophagia. Cardiac: History of DVT. Negative for chest pain, arrhythmias, or palpitation. Respiratory: Negative for shortness of breath, hemoptysis, cough, or sputum production. Gastrointestinal: See HPI for pertinent findings. Genitourinary: Negative for hematuria, urgency, frequency, polyuria, dysuria, or penile discharge. Musculoskeletal: Negative for muscle aches, swelling, arthritis, and arthralgias. Neurologic: Negative for stroke or TIA. Endocrine: Negative for thyroid problems. Skin: Negative for rash or itching. Psychiatric: History of anxiety and depression. Past Medical History Past Medical History: Deep Vein Thrombosis (DVT), Eye Disorder, GERD/Reflux, Musculoskeletal Disorder, Osteoarthritis (OA), Pneumonia, Prostate Disorder Additional Past Medical History / Comment(s): LEFT EYE-" NMO" or neuromyelitis optica (autoimmune disease that effects optic nerve and spina cord) , HX OF FX X3 RIGHT LEG (RUN OVER BY DON AT WORK), DIVERTICULOSIS, COLITIS. HX OF DVT LEG (2011), ARTHRITIS IN HIPS AND BACK, DDD WITH PAIN., GENERALIZED WEAKNESS AND HAS BOUTS OF PARALYSIS SINCE SEPTEMBER 2014- USES CANE HX OF C-DIFF (2011) History of Any Multi-Drug Resistant Organisms: C-DIFF Year Discovered:: 2011 MDRO Source:: None Past Surgical History: Appendectomy, Bowel Resection, Cardiac Ablation, Cholecystectomy, Hernia Repair Additional Past Surgical History / Comment(s): BOWEL RESECTION X6- HAD BOWEL PERFORATION AND COLOSTOMY AND REVERSAL . (2011)., INGUINAL HERNIA , HIATAL HERNIA (FEB 2016), COLONOSCOPY Past Anesthesia/Blood Transfusion Reactions: Previous Problems w/ Anesthesia Additional Past Anesthesia/Blood Transfusion Reaction / Comm: WOKE UP ONCE DURING SURGERY, POST-OP HEADACHE Past Psychological History: Anxiety, Depression Additional Psychological History / Comment(s): Health and monetary based. states, "not clinical." Smoking Status: Current every day smoker Past Alcohol Use History: None Reported Additional Past Alcohol Use History / Comment(s): SMOKES ABOUT 2 CIGARETTES DAILY. QUIT SMOKING 7-8 MONTHS AGO (2015). STARTED SMOKING AT AGE 10-11, SMOKED 1PPD THE LAST 3 YEARS Past Drug Use History: Marijuana Additional Drug Use History / Comment(s): MEDICAL MARIJUANA - Past Family History Mother Family Medical History: No Reported History Father Family Medical History: AFIB, Cancer Additional Family Medical History / Comment(s): MELANOMA X2. aunt with pancreatic cancer Medications and Allergies Home Medications Medication Instructions Recorded Confirmed Type Ciprofloxacin HCl [Cipro] 500 mg PO Q12HR 06/21/17 06/21/17 History Allergies Allergy/AdvReac Type Severity Reaction Status Date / Time Iodinated Contrast- Oral and Allergy Severe Anaphylaxis Verified 06/21/17 15:14 IV Dye [Iodinated Contrast Media - IV Dye] bee pollen Allergy Anaphylaxis Verified 06/21/17 15:14 iodine Allergy Anaphylaxis Verified 06/21/17 15:14 shellfish derived [Shellfish] Allergy Anaphylaxis Verified 06/21/17 15:14 Sulfa (Sulfonamide Allergy low BP Verified 06/21/17 15:14 Antibiotics) Physical Exam Vitals: Vital Signs Temp Pulse Resp BP BP Pulse Ox 06/23/17 06:02 97.2 F L 66 16 111/75 94 L 06/22/17 22:44 97.4 F L 67 18 115/73 95 06/22/17 15:00 98.4 F 69 16 124/73 98 Intake and Output 06/22/17 06/23/17 06/23/17 22:59 06:59 14:59 Intake Total 930 Output Total 57 Balance 873 Intake: Oral 930 Output: Post Void Residual 57 Other: # Voids 1 2 Weight 81.64 kg General appearance: The patient is alert, oriented, in no acute distress. HET: Head is normocephalic and atraumatic. Pupils are equal and reactive. Oropharynx is clear without lesions. Neck: Supple without lymphadenopathy. Trachea midline. Heart: S1 S2. Regular rate and rhythm. Lungs: No crackles or wheezes are heard. Abdomen: Right mid quadrant retroperitoneal flank tenderness, Soft, nontender in the epigastrium, nondistended with bowel sounds. No peritoneal signs. No palpable organomegaly or masses. Extremities: Normal skin color and turgor. No cyanosis, rash, ulceration, clubbing, or edema. Radial and pedal pulses are 2/4 bilaterally. Neurological: No focal deficits. Strength and sensation are grossly intact. Results CBC & Chem 7: 06/23/17 08:16 06/23/17 08:16 Labs: Abnormal Lab Results - Last 24 Hours (Table) 06/22/17 Range/Units 07:24 Triglycerides 266 H (<150) mg/dL US - abdomen: report reviewed (Dr. Loja) Assessment and Plan (1) Abdominal pain Narrative/Plan: 42-year-old male admitted with a 10 day history of right-sided abdominal flank pain as well as midepigastric pain with 1 time episode of elevated amylase lipase possible since normalized possible pancreatitis. Ultrasound unremarkable could not visualize pancreas. Etiology of elevated pancreatic enzymes is unclear idiopathic. He has a history of neuromyelitis optica, autoimmune pancreatitis cannot be entirely excluded. Current Visit: Yes Status: Acute Code(s): R10.9 - UNSPECIFIED ABDOMINAL PAIN SNOMED Code(s): 09403526 Plan: 1. We'll obtain subclass 1-4 IgG and DORIS for autoimmune workup. 2. Pancreatic enzymes have resolved presently without upper abdominal pain tolerating full liquid diet; will advance to regular diet. 3. Return to office after discharge for reevaluation. CT abdomen if pancreatic enzymes worsen or patient develops increased midepigastric upper abdominal pain. Thank you for this kind referral and the opportunity to participate in the care of your patient. This consultation was discussed with Dr. Loja. The impression and plan of care have been directed as dictated.
[2017-06-23 09:18] LABS: Basophils # (A) 0.1 k/uL (0-0.2); Basophils % (A) 1 %; Eosinophils # (A) 0.3 k/uL (0-0.7); Eosinophils % (A) 5 %; HCT 41.4 % (39.0-53.0); HGB 13.7 gm/dL (13.0-17.5); Lymphocytes # (A) 2.2 k/uL (1.0-4.8); Lymphocytes % (A) 33 %; MCH 28.1 pg (25.0-35.0); MCHC 33.2 g/dL (31.0-37.0); MCV 84.5 fL (80.0-100.0); Mean Platelet Volume 6.9; Monocytes # (A) 0.3 k/uL (0-1.0); Monocytes % (A) 5 %; Neutrophils # (A) 3.6 k/uL (1.3-7.7); Neutrophils % (A) 55 %; Platelet Count 262 k/uL (150-450); WBC 6.6 k/uL (3.8-10.6)
[2017-06-23 09:40] LABS: ALT 172 U/L (21-72); AST 94 U/L (17-59); Albumin 3.9 g/dL (3.5-5.0); Alkaline Phosphatase 65 U/L (38-126); Amylase 44 U/L (30-110); Anion Gap 9 mmol/L; Blood Urea Nitrogen 8 mg/dL (9-20); Calcium 9.1 mg/dL (8.4-10.2); Carbon Dioxide 27 mmol/L (22-30); Chloride 104 mmol/L (98-107); Glucose 90 mg/dL (74-99); Lipase 60 U/L (23-300); Potassium 4.3 mmol/L (3.5-5.1); Sodium 140 mmol/L (137-145); Total Bilirubin 0.7 mg/dL (0.2-1.3); Total Protein 6.5 g/dL (6.3-8.2)
--- NOTE | 2017-06-23 10:15 | P.PN ---
Subjective Progress Note Date: 06/23/17 The patient was seen yesterday for voiding dysfunction. 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 He had a postvoid residual urine the day before to 115 yesterday at 57. I will place him on tamsulosin however I do not think that he truly has a significant physical obstruction probably more a neurologic dyssynergia. Objective - Vital Signs Vital signs: Vital Signs Temp 97.2 F L 06/23/17 06:02 Pulse 66 06/23/17 06:02 Resp 16 06/23/17 06:02 BP 111/75 06/23/17 06:02 Pulse Ox 94 L 06/23/17 06:02 Intake & Output 06/22/17 06/23/17 06/23/17 18:59 06:59 18:59 Intake Total 1980 450 Output Total 57 Balance 1923 450 Weight 81.64 kg Intake: Intake, IV Titration 1500 Amount Sodium Chloride 0.9% 1, 1500 000 ml @ 125 mls/hr IV . Q8H [facility] Rx#:[id number] Oral 480 450 Output: Post Void Residual 57 Other: # Voids 1 2 - Labs CBC & Chem 7: 06/23/17 08:16 06/23/17 08:16 Labs: Abnormal Lab Results - Last 24 Hours (Table) 06/22/17 06/23/17 Range/Units 07:24 08:16 BUN 8 L (9-20) mg/dL AST 94 H (17-59) U/L ALT 172 H (21-72) U/L Triglycerides 266 H (<150) mg/dL
--- NOTE | 2017-06-23 12:12 | P.PN ---
Subjective Progress Note Date: 06/23/17 42-year-old male seen and examined this morning. Patients being seen for a surgical eval for abdominal pain Patient states the abdominal discomfort significantly improved. denies any nausea vomiting no loose stools tolerating diet lipase down to 60 on admission 1387 amylase down to 44 on admission 124. AST 94 ALT 172 Objective - Vital Signs Vital signs: Vital Signs Temp 97.2 F L 06/23/17 06:02 Pulse 66 06/23/17 06:02 Resp 16 06/23/17 06:02 BP 111/75 06/23/17 06:02 Pulse Ox 94 L 06/23/17 06:02 Intake & Output 06/22/17 06/23/17 06/23/17 18:59 06:59 18:59 Intake Total 1980 450 Output Total 57 Balance 1923 450 Weight 81.64 kg Intake: Intake, IV Titration 1500 Amount Sodium Chloride 0.9% 1, 1500 000 ml @ 125 mls/hr IV . Q8H [facility] Rx#:[id number] Oral 480 450 Output: Post Void Residual 57 Other: # Voids 1 2 - Exam Physical exam Abdomen soft no facial grimacing with palpitation to the abdominal wall active bowel tones reports no nausea vomiting states abdominal pain has improved Denies any loose stools tolerating diet - Labs CBC & Chem 7: 06/23/17 08:16 06/23/17 08:16 Labs: Abnormal Lab Results - Last 24 Hours (Table) 06/23/17 Range/Units 08:16 BUN 8 L (9-20) mg/dL AST 94 H (17-59) U/L ALT 172 H (21-72) U/L Assessment and Plan Assessment: Impression Present on admission elevated lipase amylase suspect due to acute pancreatitis improving History of a recent urinary tract infection History of a lap cholecystectomy June 2016 Anxiety depressive disorder History of a hiatal hernia with the rosa elena fundoplication for symptomatic esophageal reflux disease March 2016 Present on admission right upper quadrant pain suspect chronic Plan We'll sign off and re-eval as needed No evidence of an acute surgical abdomen at this time Repeat labs in the morning lipase amylase IV fluids as ordered DVT and GI prophylaxis Pain control Progress note dictated for Dr. lundberg The above impression and plan of care have been discussed and directed by signing physician. Anitha Caro nurse practitioner acting as scribe for signing physician.
--- NOTE | 2017-06-23 12:39 | P.PN ---
Subjective Progress Note Date: 06/23/17 This is a 42-year-old male, patient of Dr. Samson. He has a known past medical history of neuromyelitis optica with the left eye, chronic back pain, GERD status post Nissa publication, diverticulitis and colitis requiring bowel resection colostomy and reversal, Lynch's esophagus and DVT completed anticoagulation treatment several years ago. Patient also has a history of cholecystectomy and appendectomy. Patient presents to the emergency room with complaints of right upper quadrant epigastric and right flank abdominal pain. Patient was recently treated with clindamycin for possible UTI or prostatitis by a urologist out of [place]. He had been treated with Cipro for 2 weeks. And just started another course of Cipro. Patient believes it was for UTI. Urinalysis for this admission is negative. However, patient complains of unable to fully empty his bladder, urinary frequency hesitancy and dribbling. He had a computed tomography scan in April 2017 that did show slightly enlarged prostate and bladder wall thickening. He is requesting for urology consult. However, patient continued to have significant right upper quadrant abdominal pain. She was found to have amylase of 124 and lipase of 1087. He was admitted to the hospice for acute pancreatitis. Made nothing by mouth started on IV fluids and given IV pain medications. Amylase and lipase have normalized. Surgical service has evaluated patient and started a clear liquid diet. Patient denies any alcohol use. Has had his gallbladder removed over a year ago. Check triglyceride level. The only new medication and the only medication patient is on his Cipro. GI service will be consulted. Patient's still complaining mostly of this right-sided flank pain. Admits to having nausea but this is chronic for patient due to his multiple abdominal surgeries. Reports no new changes in his stools. Admits to having some chills. Denies any fever or sweats. Denies any burning with urination or any blood in the urine. On 06/23/2017 patient is alert and oriented 3 he is complaining of right flank pain, examination of the area reveals vesicular rash suggestive of herpes zoster eruption. Otherwise patient denies any complaint he is able to tolerate his diet well there is no chest pain or shortness of breath no cough no nausea or vomiting no abdominal pain. Objective - Vital Signs Vital signs: Vital Signs Temp 97.2 F L 06/23/17 06:02 Pulse 66 06/23/17 06:02 Resp 16 06/23/17 06:02 BP 111/75 06/23/17 06:02 Pulse Ox 94 L 06/23/17 06:02 Intake & Output 06/22/17 06/23/17 06/23/17 18:59 06:59 18:59 Intake Total 1980 450 Output Total 57 Balance 1923 450 Weight 81.64 kg Intake: Intake, IV Titration 1500 Amount Sodium Chloride 0.9% 1, 1500 000 ml @ 125 mls/hr IV . Q8H [facility] Rx#:[id number] Oral 480 450 Output: Post Void Residual 57 Other: # Voids 1 2 - Exam Head normocephalic and atraumatic no JVD Neck supple no JVD Lungs clear to auscultation bilaterally no wheezing or crackles Heart regular rate and rhythm S1-S2, no rub or gallop Abdomen is soft nondistended epigastric right upper quadrant tenderness and right flank tenderness with palpation no skin color changes. Extremities no edema no cyanosis or clubbing Neuro alert and orientated to 3 Skin exam reveals vesicular rash in the right flank area suggestive of herpes zoster eruption - Labs CBC & Chem 7: 06/23/17 08:16 06/23/17 08:16 Labs: Abnormal Lab Results - Last 24 Hours (Table) 06/23/17 Range/Units 08:16 BUN 8 L (9-20) mg/dL AST 94 H (17-59) U/L ALT 172 H (21-72) U/L Assessment and Plan Plan: 1. Acute pancreatitis: Exact etiology unclear. Patient denies any alcohol use. He's had a cholecystectomy about a year ago. Will check triglyceride level complete abdominal ultrasound and consult GI service. Continue with IV fluid hydration. Amylase and lipase have normalized. And liquid diet has been started by surgical service. 2. Urinary symptoms with concerns of enlarged prostate and bladder wall thickening noted on a computed tomography scan in April 2017. We'll consult urology service. Check for postvoid residual to monitor for any urinary retention. Urinalysis negative for infection does show trace protein. 3. Treated recently for UTI with Cipro. 4. Nicotine dependence: Discussed smoking cessation. We'll increase nicotine patch 14 mg daily 5. History of GERD status post Nissa fundal publication 6. History of diverticulitis and colitis requiring bowel resection with colostomy and reversal of colostomy 7. History of DVT of the leg several years ago completed anticoagulation treatment. 8. History of Neuromyelitis optica left only 9. GI prophylaxis Protonix and DVT prophylaxis Lovenox 10. Herpes zoster eruption in the right flank area, will start Valtrex 1 g by mouth 3 times a day, will monitor symptoms and treat as needed Will continue to monitor for 24 more hours possible discharge tomorrow
[2017-06-23] MEDS ORDERED: TAMSULOSIN 0.4 MG CAP.ER.24H PO STA (12:52)
[2017-06-23] MEDS ORDERED: valACYclovir 500 MG TAB PO SCH (14:00)
[2017-06-23] MEDS: valACYclovir HCL 1,000 MG TABLET PO SCH ×2 (14:53→21:52)
[2017-06-23] MEDS: MORPHINE SULFATE 4 MG/ML SYRINGE IVP PRN (18:42)
[2017-06-23] MEDS: HYDROcodone/APAP 10-325MG 1 EACH TAB PO PRN (21:55)
[2017-06-24] MEDS: MORPHINE SULFATE 4 MG/ML SYRINGE IVP PRN ×3 (01:33→11:15)
[2017-06-24] MEDS: SODIUM CHLORIDE 0.9% 1,000 ML IV SCH ×2 (02:30→09:12)
[2017-06-24] MEDS: HYDROcodone/APAP 10-325MG 1 EACH TAB PO PRN ×2 (04:45→10:15)
[2017-06-24 09:02] LABS: Basophils # (A) 0.1 k/uL (0-0.2); Basophils % (A) 1 %; Eosinophils # (A) 0.3 k/uL (0-0.7); Eosinophils % (A) 4 %; HCT 39.6 % (39.0-53.0); HGB 13.8 gm/dL (13.0-17.5); Lymphocytes # (A) 2.1 k/uL (1.0-4.8); Lymphocytes % (A) 26 %; MCH 28.8 pg (25.0-35.0); MCHC 34.8 g/dL (31.0-37.0); MCV 82.7 fL (80.0-100.0); Mean Platelet Volume 6.5; Monocytes # (A) 0.3 k/uL (0-1.0); Monocytes % (A) 4 %; Neutrophils # (A) 5.1 k/uL (1.3-7.7); Neutrophils % (A) 63 %; Platelet Count 269 k/uL (150-450); RBC 4.79 m/uL (4.30-5.90); RDW 12.7 % (11.5-15.5); WBC 8.2 k/uL (3.8-10.6)
[2017-06-24 09:06] LABS: ALT 133 U/L (21-72); AST 52 U/L (17-59); Albumin 3.9 g/dL (3.5-5.0); Alkaline Phosphatase 59 U/L (38-126); Anion Gap 10 mmol/L; Blood Urea Nitrogen 8 mg/dL (9-20); Calcium 9.2 mg/dL (8.4-10.2); Carbon Dioxide 26 mmol/L (22-30); Chloride 104 mmol/L (98-107); Glucose 99 mg/dL (74-99); Potassium 4.1 mmol/L (3.5-5.1); Sodium 140 mmol/L (137-145); Total Bilirubin 0.6 mg/dL (0.2-1.3); Total Protein 6.5 g/dL (6.3-8.2)
[2017-06-24] MEDS: ENOXAPARIN 40 MG/0.4 ML SYRINGE SQ SCH (09:11)
[2017-06-24] MEDS: PANTOPRAZOLE 40 MG TABLET PO SCH (09:11)
[2017-06-24] MEDS: NICOTINE 14MG/24HR PATCH TRANSDERM SCH (09:11)
[2017-06-24] MEDS: valACYclovir HCL 1,000 MG TABLET PO SCH ×3 (09:11→21:02)
--- NOTE | 2017-06-24 11:02 | P.PN ---
Subjective Progress Note Date: 06/24/17 Principal diagnosis: Pancreatitis elevated amylase lipase 42-year-old male who was evaluated yesterday for possible pancreatitis presenting with acute abdominal pain and right flank pain with one-day elevation of pancreatic enzymes since resolved. The last way 4 hours patient has developed a vesical-type rash to his right abdomen flank region consistent with herpes zoster. Carri enzymes have normalized. Serology for workup of possible autoimmune pancreatitis is still pending. Tolerating diet. Afebrile. Objective - Vital Signs Vital signs: Vital Signs Temp 97.2 F L 06/24/17 07:00 Pulse 61 06/24/17 07:00 Resp 16 06/24/17 07:00 BP 121/77 06/24/17 07:00 Pulse Ox 93 L 06/24/17 07:00 Intake & Output 06/23/17 06/24/17 06/24/17 18:59 06:59 18:59 Intake Total 1825 Balance 1825 Intake: Intake, IV Titration 1625 Amount Sodium Chloride 0.9% 1, 1625 000 ml @ 125 mls/hr IV . Q8H [facility] Rx#:[id number] Oral 200 Other: Voiding Method Toilet # Voids 1 - Exam General appearance: The patient is alert, oriented, in no acute distress. HET: Head is normocephalic and atraumatic. Pupils are equal and reactive. Oropharynx is clear without lesions. Neck: Supple without lymphadenopathy. Trachea midline. Heart: S1 S2. Regular rate and rhythm. Lungs: No crackles or wheezes are heard. Abdomen: Soft, tenderness to the right flank with visible vesicle rash, nondistended with bowel sounds. No peritoneal signs. No palpable organomegaly or masses. Extremities: Normal skin color and turgor. No cyanosis, rash, ulceration, clubbing, or edema. Radial and pedal pulses are 2/4 bilaterally. Neurological: No focal deficits. Strength and sensation are grossly intact. - Labs CBC & Chem 7: 06/24/17 07:41 06/24/17 07:41 Labs: Abnormal Lab Results - Last 24 Hours (Table) 06/24/17 Range/Units 07:41 BUN 8 L (9-20) mg/dL ALT 133 H (21-72) U/L Assessment and Plan (1) Abdominal pain Narrative/Plan: 42-year-old male admitted with a 10 day history of right-sided abdominal flank pain as well as midepigastric pain with 1 time episode of elevated amylase lipase possible since normalized possible pancreatitis. New development of herpes zoster. Ultrasound unremarkable could not visualize pancreas. Etiology of elevated pancreatic enzymes is unclear idiopathic. He has a history of neuromyelitis optica, autoimmune pancreatitis cannot be entirely excluded. Possible viral induced pancreatitis. Current Visit: Yes Status: Acute Code(s): R10.9 - UNSPECIFIED ABDOMINAL PAIN SNOMED Code(s): 97216827 (2) Herpes zoster Current Visit: Yes Status: Acute Code(s): B02.9 - ZOSTER WITHOUT COMPLICATIONS SNOMED Code(s): 3640262 Plan: 1. Subclass 1-4 IgG and DORIS for autoimmune workup pending. 2. Pancreatic enzymes have resolved presently without upper abdominal pain tolerating regular diet. 3. Return to office after discharge for reevaluation. CT abdomen if pancreatic enzymes worsen or patient develops increased midepigastric upper abdominal pain. 4. Will follow as needed. Assessment and plan a care discussed with Dr. Loja
[2017-06-24 12:47] LABS: IgG Subclass 3 39.8 mg/dL (11.0-85.0)
--- NOTE | 2017-06-24 13:31 | P.PN ---
Subjective Progress Note Date: 06/24/17 This is a 42-year-old male, patient of Dr. Samson. He has a known past medical history of neuromyelitis optica with the left eye, chronic back pain, GERD status post Nissa publication, diverticulitis and colitis requiring bowel resection colostomy and reversal, Lynch's esophagus and DVT completed anticoagulation treatment several years ago. Patient also has a history of cholecystectomy and appendectomy. Patient presents to the emergency room with complaints of right upper quadrant epigastric and right flank abdominal pain. Patient was recently treated with clindamycin for possible UTI or prostatitis by a urologist out of [place]. He had been treated with Cipro for 2 weeks. And just started another course of Cipro. Patient believes it was for UTI. Urinalysis for this admission is negative. However, patient complains of unable to fully empty his bladder, urinary frequency hesitancy and dribbling. He had a computed tomography scan in April 2017 that did show slightly enlarged prostate and bladder wall thickening. He is requesting for urology consult. However, patient continued to have significant right upper quadrant abdominal pain. She was found to have amylase of 124 and lipase of 1087. He was admitted to the hospice for acute pancreatitis. Made nothing by mouth started on IV fluids and given IV pain medications. Amylase and lipase have normalized. Surgical service has evaluated patient and started a clear liquid diet. Patient denies any alcohol use. Has had his gallbladder removed over a year ago. Check triglyceride level. The only new medication and the only medication patient is on his Cipro. GI service will be consulted. Patient's still complaining mostly of this right-sided flank pain. Admits to having nausea but this is chronic for patient due to his multiple abdominal surgeries. Reports no new changes in his stools. Admits to having some chills. Denies any fever or sweats. Denies any burning with urination or any blood in the urine. 06/24/2017 patient's right-sided flank pain had evidence of herpes zoster eruption. He was started on Valtrex. Still requiring IV morphine for pain control. Patient does not feel ready for discharge. Patient started on Flomax with improvement in his urinary symptoms. Patient tolerating diet. Denies any nausea or vomiting. Denies any chest pain or shortness of breath. Objective - Vital Signs Vital signs: Vital Signs Temp 97.2 F L 06/24/17 07:00 Pulse 61 06/24/17 07:00 Resp 16 06/24/17 07:00 BP 121/77 06/24/17 07:00 Pulse Ox 93 L 06/24/17 07:00 Intake & Output 06/23/17 06/24/17 06/24/17 18:59 06:59 18:59 Intake Total 1825 Balance 1825 Intake: Intake, IV Titration 1625 Amount Sodium Chloride 0.9% 1, 1625 000 ml @ 125 mls/hr IV . Q8H [facility] Rx#:[id number] Oral 200 Other: Voiding Method Toilet # Voids 1 - Exam Head normocephalic Neck supple Lungs clear to auscultation bilaterally no wheezing or crackles Heart regular rate and rhythm S1-S2, no rub or gallop Abdomen is soft nontender nondistended positive bowel sounds no hepatosplenomegaly. Vesicular rash noted along the right side of the abdomen Extremities no edema Neuro alert and orientated to 3 - Labs CBC & Chem 7: 06/24/17 07:41 06/24/17 07:41 Labs: Abnormal Lab Results - Last 24 Hours (Table) 06/24/17 Range/Units 07:41 BUN 8 L (9-20) mg/dL ALT 133 H (21-72) U/L Assessment and Plan Assessment: 1. Acute pancreatitis: Exact etiology unclear. Patient denies any alcohol use. He's had a cholecystectomy about a year ago. Amylase and lipase have normalized. Patient seen by GI and surgical service. GI is initiating an autoimmune workup. They recommend follow-up in the office after discharge patient. Patient tolerating diet. Hep-Lock IV fluids. Triglyceride level to 66. Abdominal ultrasound reveals a limited exam of the pancreas 2. Possible Enlarged prostate versus neurogenic bladder due to demyelinating disease. urology place patient on Flomax. Urinary symptoms improved 3. Treated recently for UTI with Cipro. 4. Nicotine dependence: Discussed smoking cessation. We'll increase nicotine patch 14 mg daily 5. History of GERD status post Nissa fundoplication 6. History of diverticulitis and colitis requiring bowel resection with colostomy and reversal of colostomy 7. History of DVT of the leg several years ago completed anticoagulation treatment. 8. History of Neuromyelitis optica left only 9. Herpes zoster eruption on the right flank area patient started on Valtrex 1 g 3 times a day to continue for 10 days. Continue with current pain management GI prophylaxis Protonix and DVT prophylaxis Lovenox Anticipate discharge home possibly tomorrow I performed an examination of the patient and discussed their management with the physician Picture Copyist. I have reviewed the Physician Picture Copyist's notes and agree with the documented findings and plan of care
[2017-06-24] MEDS: MORPHINE ORAL SOLN 10 MG/5 ML CUP PO PRN ×3 (16:10→23:48)
[2017-06-24] MEDS: KETOROLAC 30 MG/ML 1 ML VIAL IVP PRN (18:02)
[2017-06-24] MEDS ORDERED: TAMSULOSIN 0.4 MG CAP.ER.24H PO SCH (21:00)
[2017-06-24 22:45] VITALS: RESP 18
[2017-06-25] MEDS: HYDROcodone/APAP 10-325MG 1 EACH TAB PO PRN (02:00)
[2017-06-25] MEDS: MORPHINE ORAL SOLN 10 MG/5 ML CUP PO PRN ×3 (04:11→14:37)
[2017-06-25] MEDS: KETOROLAC 30 MG/ML 1 ML VIAL IVP PRN ×2 (04:22→10:35)
[2017-06-25 07:53] LABS: Basophils # (A) 0.1 k/uL (0-0.2); Basophils % (A) 1 %; Eosinophils # (A) 0.5 k/uL (0-0.7); Eosinophils % (A) 7 %; HGB 14.9 gm/dL (13.0-17.5); Lymphocytes # (A) 2.5 k/uL (1.0-4.8); Lymphocytes % (A) 36 %; MCH 29.4 pg (25.0-35.0); MCHC 35.4 g/dL (31.0-37.0); Mean Platelet Volume 6.4; Monocytes # (A) 0.4 k/uL (0-1.0); Monocytes % (A) 5 %; Neutrophils # (A) 3.3 k/uL (1.3-7.7); Neutrophils % (A) 48 %; Platelet Count 254 k/uL (150-450); RBC 5.06 m/uL (4.30-5.90); RDW 12.9 % (11.5-15.5); WBC 6.9 k/uL (3.8-10.6)
[2017-06-25 08:33] LABS: ALT 117 U/L (21-72); AST 53 U/L (17-59); Alkaline Phosphatase 61 U/L (38-126); Anion Gap 9 mmol/L; Blood Urea Nitrogen 7 mg/dL (9-20); Calcium 9.6 mg/dL (8.4-10.2); Carbon Dioxide 28 mmol/L (22-30); Chloride 103 mmol/L (98-107); Glucose 89 mg/dL (74-99); Potassium 3.8 mmol/L (3.5-5.1); Sodium 140 mmol/L (137-145); Total Bilirubin 0.6 mg/dL (0.2-1.3); Total Protein 6.7 g/dL (6.3-8.2)
[2017-06-25] MEDS: valACYclovir HCL 1,000 MG TABLET PO SCH ×2 (08:52→15:05)
[2017-06-25] MEDS: NICOTINE 14MG/24HR PATCH TRANSDERM SCH (08:52)
[2017-06-25] MEDS: ENOXAPARIN 40 MG/0.4 ML SYRINGE SQ SCH (08:52)
[2017-06-25] MEDS: PANTOPRAZOLE 40 MG TABLET PO SCH (08:52)
[2017-06-25 11:24] VITALS: BP 100/69; PULSE 74; TEMP 97.8
--- NOTE | 2017-06-25 14:08 | P.DS ---
Providers Date of admission: 06/21/17 15:41 Expected date of discharge: 06/25/17 Attending physician: Luke Garcia Consults: 06/22/17 11:14 Consult Physician Routine Consulting Provider: Alec Obregon Consult Reason/Comments: Enlarged prostate and bladder wall thickening on CT Do you want consulting provider notified?: Yes Primary care physician: Dinora Spain Hospital Course: Discharge diagnosis 1. Acute pancreatitis: Exact etiology unclear. Possibly viral related to his herpes zoster outbreak. Patient denies any alcohol use. He's had a cholecystectomy about a year ago. Amylase and lipase have normalized. Patient seen by GI and surgical service. GI is initiating an autoimmune workup. They recommend follow-up in the office after discharge patient. Patient tolerating diet. Hep-Lock IV fluids. Triglyceride level 266. Abdominal ultrasound reveals a limited exam of the pancreas 2. Possible Enlarged prostate versus neurogenic bladder due to demyelinating disease. urology place patient on Flomax. Urinary symptoms improved 3. Treated recently for UTI with Cipro. 4. Nicotine dependence: Discussed smoking cessation. Continue nicotine patch 5. History of GERD status post Nissa fundoplication 6. History of diverticulitis and colitis requiring bowel resection with colostomy and reversal of colostomy 7. History of DVT of the leg several years ago completed anticoagulation treatment. 8. History of Neuromyelitis optica left only 9. Herpes zoster eruption on the right flank area patient started on Valtrex 1 g 3 times a day to continue for a total of 10 days. Continue with current pain management Hospital course This is a 42-year-old male, patient of Dr. Samson. He has a known past medical history of neuromyelitis optica with the left eye, chronic back pain, GERD status post Nissa publication, diverticulitis and colitis requiring bowel resection colostomy and reversal, Lynch's esophagus and DVT completed anticoagulation treatment several years ago. Patient also has a history of cholecystectomy and appendectomy. Patient presents to the emergency room with complaints of right upper quadrant epigastric and right flank abdominal pain. Patient was recently treated with clindamycin for possible UTI or prostatitis by a urologist out of [place]. He had been treated with Cipro for 2 weeks. And just started another course of Cipro. Patient believes it was for UTI. Urinalysis for this admission is negative. However, patient complains of unable to fully empty his bladder, urinary frequency hesitancy and dribbling. He had a computed tomography scan in April 2017 that did show slightly enlarged prostate and bladder wall thickening. He is requesting for urology consult. However, patient continued to have significant right upper quadrant abdominal pain. She was found to have amylase of 124 and lipase of 1087. He was admitted to the hospice for acute pancreatitis. Made nothing by mouth started on IV fluids and given IV pain medications. Amylase and lipase have normalized. Surgical service has evaluated patient and started a clear liquid diet. Patient denies any alcohol use. Has had his gallbladder removed over a year ago. Check triglyceride level. The only new medication and the only medication patient is on his Cipro. GI service will be consulted. Patient's still complaining mostly of this right-sided flank pain. Admits to having nausea but this is chronic for patient due to his multiple abdominal surgeries. Reports no new changes in his stools. Admits to having some chills. Denies any fever or sweats. Denies any burning with urination or any blood in the urine. Patient's amylase lipase normalized his second day of admission. Treated with IV fluids and pain medication. His acute pancreatitis exact etiology is unclear. He seen by GI service. Possibly viral related due to the herpes zoster breakout. His autoimmune workup is negative so far. And he'll be following up with GI service outpatient setting. Tolerating diet. Abdominal ultrasound was a limited exam of the pancreas. And triglyceride level of 266. Hepatitis resolved. He did have herpes zoster eruption along that right flank and abdomen about day 3 of his admission. Likely this is contributing to patient's main symptoms. He has 9 more days of the Valtrex. Lidocaine cream has been ordered to help with pain control as well as the Fay. Patient wants nicotine patches at time of discharge to help with his smoking cessation. Also was seen by urology and regards to his urinary symptoms. He was started on Flomax for enlarged prostate and this appears to be helping his symptoms. He' ll follow-up with urology outpatient for further evaluation. Patient is medically stable for discharge. Symptoms have improved. His pain is tolerable. I performed an examination of the patient and discussed their management with the physician Build Engineer. I have reviewed the Physician Build Engineer's notes and agree with the documented findings and plan of care Patient Condition at Discharge: Stable Plan - Discharge Summary Discharge Rx Participant: Yes New Discharge Prescriptions: New HYDROcodone/APAP 10-325MG [Fay 10-325] 1 each PO Q6H PRN #40 tab PRN Reason: Moderate Pain Lidocaine 4% Cream [Lmx 4] 1 applic TOPICAL Q6H #1 tube Nicotine 14Mg/24Hr Patch [Habitrol] 1 patch TRANSDERM DAILY #30 patch Tamsulosin [Flomax] 0.4 mg PO HS #30 cap.er.24h valACYclovir HCL [Valtrex] 1,000 mg PO TID #27 tablet Discontinued Ciprofloxacin HCl [Cipro] 500 mg PO Q12HR Discharge Medication List HYDROcodone/APAP 10-325MG [Fay 10-325] 1 each PO Q6H PRN #40 tab 06/25/17 [Rx] Lidocaine 4% Cream [Lmx 4] 1 applic TOPICAL Q6H #1 tube 06/25/17 [Rx] Nicotine 14Mg/24Hr Patch [Habitrol] 1 patch TRANSDERM DAILY #30 patch 06/25/17 [ Rx] Tamsulosin [Flomax] 0.4 mg PO HS #30 cap.er.24h 06/25/17 [Rx] valACYclovir HCL [Valtrex] 1,000 mg PO TID #27 tablet 06/25/17 [Rx] Follow up Appointment(s)/Referral(s): Patricio Loja MD [STAFF PHYSICIAN] - 07/06/17 3:15 pm Dinora Spain MD [Primary Care Provider] - 3 Days Amos Fisher MD [STAFF PHYSICIAN] - 3 Weeks Patient Instructions/Handouts: Valacyclovir (By mouth), Tamsulosin (By mouth), Pancreatitis (DC) Activity/Diet/Wound Care/Special Instructions: Soft bland, low fat diet, advance as tolerated Activity as tolerated. NO smoking, cessation information provided. Discharge Disposition: HOME SELF-CARE
== END 2017-06-25 15:15 | disposition home or self-care (01) | DRG 439 ==
LOC: EC 13:49 → 4MS4W 15:41 → 5MS5E 06-24 01:17
PROVIDERS: ADMIT Internal Medicine; ATTEND Internal Medicine
DX: K85.90 Acute pancreatitis without necrosis or infection, unspecified (principal); G36.0 Neuromyelitis optica [Devic]; B02.9 Zoster without complications; K75.9 Inflammatory liver disease, unspecified; F17.200 Nicotine dependence, unspecified, uncomplicated; F32.9 Major depressive disorder, single episode, unspecified; F41.9 Anxiety disorder, unspecified; K21.9 Gastro-esophageal reflux disease without esophagitis; K22.70 Barrett's esophagus without dysplasia; K57.30 Diverticulosis of large intestine without perforation or abscess without bleeding; N40.0 Benign prostatic hyperplasia without lower urinary tract symptoms; G89.29 Other chronic pain; K44.9 Diaphragmatic hernia without obstruction or gangrene; M15.9 Polyosteoarthritis, unspecified; N31.9 Neuromuscular dysfunction of bladder, unspecified; Z91.030 Bee allergy status; Z91.041 Radiographic dye allergy status; Z91.013 Allergy to seafood; Z90.49 Acquired absence of other specified parts of digestive tract; Z86.718 Personal history of other venous thrombosis and embolism; Z87.440 Personal history of urinary (tract) infections
CPT/HCPCS: 36415; 74018; 76700; 80048; 80053; 81003; 82150; 82787; 83690; 84478; 85025; 86038; 96374; 96375; 99285

== ENCOUNTER 2017-09-29 08:03 | Day surgery (SDC) | payer OTHER ==
[2017-09-27 11:33] VITALS: BMI 26.1
[~2017-09-29 08:03] MED LIST changes: +LIDOCAINE 1% 20 ML VIAL (10MG/ML) FOR IV START INTRADERMA PRN; +MIDAZOLAM 2 MG/2 ML VIAL IV PRN
[2017-09-29 08:33] VITALS: TEMP 97.2
[2017-09-29] MEDS ORDERED: PROPOFOL 10 MG/ML 20 ML VIAL IV ONE (09:25)
[2017-09-29] MEDS ORDERED: LIDOCAINE 1% INJ 10MG/ML (20 ML MDV) ONE (09:25)
--- NOTE | 2017-09-29 09:40 | P.PCN ---
Date of Procedure: 09/29/17 Procedure(s) Performed: BRIEF HISTORY: Patient is a 42-year-old pleasant male, scheduled for an elective colonoscopy as a part of evaluation of chronic lower abdominal pain and irregular bowel movements for the last 7 years duration. The patient underwent colon resection secondary to acute diverticulitis in 2011. Since then he is been having irregular bowel movements with alternating diarrhea and constipation and severe lower abdominal cramping. He was given a trial of Bentyl with no help. Because of ongoing symptoms he scheduled for colonoscopy to evaluate further. PROCEDURE PERFORMED: Colonoscopy With random biopsy PREOPERATIVE DIAGNOSIS: Lower abdominal pain and alternating diarrhea and constipation. IV sedation per Anesthesia. PROCEDURE: After informed consent was obtained, the patient, was brought into the endoscopy unit. IV sedation was administered by Anesthesia under continuous monitoring. Digital rectal examination was normal. Initially the Olympus CF- 160 flexible video colonoscope was then inserted in the rectum, gradually advanced into the cecum without any difficulty. Careful examination was performed as the scope was gradually being withdrawn. Ileocecal valve and the appendiceal orifice were visualized and appeared normal. Prep was excellent. Mucosa of the cecum, ascending colon, transverse colon, descending colon, sigmoid colon, and rectum appeared normal. Random biopsies were done from ascending and descending colon to rule out microscopic/collagenous colitis. Retroflexion was performed in the rectum and no lesions were seen. The patient tolerated the procedure well. IMPRESSION: Normal-appearing colon from rectum to cecum with no evidence of colorectal neoplasia or colitis. RECOMMENDATIONS: Findings of this examination were discussed with the patient as well as his family. He was advised to follow with the biopsy results. He' ll be seen in office in 2 weeks..
[2017-09-29 09:56] VITALS: BP 106/72; PULSE 70; RESP 16
== END 2017-09-29 10:15 | disposition home or self-care (01) ==
LOC: ORWHC2ENDO 08:03
PROVIDERS: ATTEND Internal Medicine Gastroenterology
DX: R10.30 Lower abdominal pain, unspecified (principal); G89.29 Other chronic pain; R19.7 Diarrhea, unspecified; K59.00 Constipation, unspecified; Z90.49 Acquired absence of other specified parts of digestive tract; Z87.19 Personal history of other diseases of the digestive system; F17.210 Nicotine dependence, cigarettes, uncomplicated; Z79.899 Other long term (current) drug therapy; Z91.041 Radiographic dye allergy status; Z88.2 Allergy status to sulfonamides
CPT/HCPCS: 88305; 45380; J2001; J2704

== ENCOUNTER 2017-10-19 09:34 | Inpatient (IN) | payer MEDICARE, OTHER ==
--- NOTE | 2017-10-19 10:26 | ED ---
Eye Problem HPI - General Chief complaint: Eye Problems Stated complaint: optic neuritis OS Time Seen by Provider: 10/19/17 10:01 Source: patient Mode of arrival: ambulatory Limitations: no limitations - History of Present Illness Initial comments: There is a 41-year-old male with past medical history of neuromyleitis optica who presents today for chief complaint of left eye pain and vision change. Patient states that for the past week and half he has had pain in his left eye, the pain feels that that when he had previous exacerbation of his optic neuritis. Throughout the course of the week patient has noticed increasing left eye pain, as well as pain and left-sided face and forehead, worsening visual acuity and decreasing peripheral visual field but denies changes in color vision. In addition patient admits to increasing fatigue and weakness which he states occur chronically. Patient states that he didn't come in sooner because his son left Wednesday for basic training and he didnt want to upset him with another hospitalization. Patient states that often has to take lacerations by mouth steroids do not work and last time he was hospitalized for IV steroids. Pt was last hospitalized 8 months and was in the hospital for 7 days. Pt states that he usually follows Dr. Smyth for neurology and has seen Dr. Marte in the past for his optic neuritis. Pt denies any recent falls, complete loss of vision, headache, fever, chills, shortness of breath, chest pain, back pain, abdominal pain, nausea or vomiting, numbness or tingling, dysuria or hematuria, constipation or diarrhea, or any other complaints. MD chief complaint: eye pain, vision change - Related Data Home Medications Medication Instructions Recorded Confirmed Ergocalciferol (Vitamin D2) 50,000 unit PO FR 09/27/17 10/19/17 [Vitamin D2] Ferrous Sulfate [Feosol] 325 mg PO HS 09/27/17 10/19/17 Fluticasone Nasal [place] [Flonase 1 spray EA NOSTRIL DAILY PRN 09/27/17 10/19/17 Nasal [place]] Loratadine [Claritin] 10 mg PO DAILY PRN 09/27/17 10/19/17 Tamsulosin [Flomax] 0.4 mg PO BID 09/27/17 10/19/17 Allergies Allergy/AdvReac Type Severity Reaction Status Date / Time Iodinated Contrast- Oral and Allergy Severe Anaphylaxis Verified 10/19/17 10:31 IV Dye [Iodinated Contrast Media - IV Dye] bee pollen Allergy Anaphylaxis Verified 10/19/17 10:31 iodine Allergy Anaphylaxis Verified 10/19/17 10:31 shellfish derived [Shellfish] Allergy Anaphylaxis Verified 10/19/17 10:31 Sulfa (Sulfonamide Allergy low BP Verified 10/19/17 10:31 Antibiotics) Review of Systems ROS Statement: Those systems with pertinent positive or pertinent negative responses have been documented in the HPI. ROS Other: All systems not noted in ROS Statement are negative. Constitutional: Reports: weakness. Denies: fever, chills, weight change Eyes: Reports: eye pain, vision change ENT: Denies: throat pain Respiratory: Denies: cough, dyspnea Cardiovascular: Denies: chest pain, palpitations Endocrine: Reports: fatigue Gastrointestinal: Denies: abdominal pain, nausea, vomiting, diarrhea, constipation Genitourinary: Denies: urgency, dysuria, frequency Skin: Denies: rash, lesions Neurological: Reports: weakness. 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 HX OF DVT LEG ( 2011), ARTHRITIS IN HIPS AND BACK, DDD WITH -back pain PAIN.GENERALIZED WEAKNESS AND HAd BOUTS OF PARALYSIS on and off [id number] USES CANE HX prn History of Any Multi-Drug Resistant Organisms: C-DIFF Date of last positivie culture/infection: 2011 MDRO Source:: None Past Surgical History: Appendectomy, Bowel Resection, Cardiac Ablation, Cholecystectomy, Hernia Repair Additional Past Surgical History / Comment(s): BOWEL RESECTION X6- HAD BOWEL PERFORATION AND COLOSTOMY AND REVERSAL . (2011)., INGUINAL HERNIA , HIATAL HERNIA (FEB 2016), COLONOSCOPY, diverticulitis,inguinal hernia repair Past Anesthesia/Blood Transfusion Reactions: Previous Problems w/ Anesthesia Additional Past Anesthesia/Blood Transfusion Reaction / Comment(s): WOKE UP ONCE DURING SURGERY, POST-OP HEADACHE Past Psychological History: Anxiety, Depression Smoking Status: Current every day smoker Past Alcohol Use History: None Reported Past Drug Use History: Marijuana - Past Family History Mother Family Medical History: No Reported History Father Family Medical History: AFIB, Cancer Additional Family Medical History / Comment(s): MELANOMA x2 General Exam - General Exam Comments Initial Comments: General: The patient is awake and alert, in no distress, and does not appear acutely ill. Eye: Pupils are equal, round and reactive to light- there is mild APD to the eye b/l. extra-ocular movements are intact, there is mild pain to EOM. No nystagmus. There is normal conjunctiva, no injection bilaterally. No signs of icterus. VA 20/50 OS, 20/20 OD, 20/20 OU. VF intact OD to all 4 lazaro to confrontation. OS has mild visual field defect in the outer, upper field. IOP 16 OU. Upon examination the optic disc was not visualized due to limited lazaro secondary to no dilation. Ears, nose, mouth and throat: There are moist mucous membranes and no oral lesions. Neck: The neck is supple, there is no tenderness or JVD. Cardiovascular: There is a regular rate and rhythm. No murmur, rub or gallop is appreciated. Respiratory: Lungs are clear to auscultation, respirations are non-labored, breath sounds are equal. No wheezes, stridor, rales, or rhonchi. Gastrointestinal: [Soft, non-distended, non-tender abdomen without masses or organomegaly noted. There is no rebound or guarding present. No CVA tenderness. Bowel sounds are unremarkable. Multiple abdominal scars from previous surgeries.] Musculoskeletal: Normal ROM, no tenderness. Strength 5/5. Sensation intact. Pulses equal bilaterally 2+. Neurological: A&O x 3. CN II-XII intact, There are no obvious motor or sensory deficits. Coordination appears grossly intact. Speech is normal. Skin: Skin is warm and dry and no rashes or lesions are noted. Psychiatric: Cooperative, appropriate mood & affect, normal judgment. Limitations: no limitations Course Vital Signs 10/19/17 10/19/17 09:47 11:50 Temperature 98.2 F Pulse Rate 76 66 Respiratory 18 18 Rate Blood Pressure 125/85 116/70 O2 Sat by Pulse 95 97 Oximetry Medical Decision Making - Medical Decision Making There is a 41-year-old male with past medical history of neuromyleitis optica who presents today for chief complaint of left eye pain and vision change. Patient states that for the past week and half he has had pain in his left eye, the pain feels that that when he had previous exacerbation of his optic neuritis. Throughout the course of the week patient has noticed increasing left eye pain, as well as pain and left-sided face and forehead, worsening visual acuity and decreasing peripheral visual field but denies changes in color vision. In addition patient admits to increasing fatigue and weakness which he states occur chronically. Patient states that he didn't come in sooner because his son left Wednesday for basic training and he didnt want to upset him with another hospitalization. Patient states that often has to take lacerations by mouth steroids do not work and last time he was hospitalized for IV steroids. Pt was last hospitalized 8 months and was in the hospital for 7 days. Pt states that he usually follows Dr. Smyth for neurology and has seen Dr. Marte in the past for his optic neuritis. Pt denies any recent falls, complete loss of vision, headache, fever, chills, shortness of breath, chest pain, back pain, abdominal pain, nausea or vomiting, numbness or tingling, dysuria or hematuria, constipation or diarrhea, or any other complaints. Upon examination pupils are equal, round and reactive to light- there is mild APD to the eye b/l. extra-ocular movements are intact, there is mild pain to EOM. No nystagmus. There is normal conjunctiva, no injection bilaterally. No signs of icterus. VA 20/50 OS, 20/20 OD, 20/20 OU. VF intact OD to all 4 lazaro to confrontation. OS has mild visual field defect in the outer, upper field. IOP 16 OU. Upon examination the optic disc was not visualized due to limited lazaro secondary to no dilation. Case was discussed with Dr. Aguillon, we felt at this time admission was appropriate given the changes in visual acuity and history of poor response to oral antibiotics. Pt was admitted to Dr. Garcia who was contacted by Dr. Aguillon. I addition Dr. Quigley was consulted by Dr. Aguillon who discussed the case with him. He recommended solumedrol 250 IVP q8h. In addition pt received dilaudid 0.5mg q8h for pain management. CMP and CBC wre ordered before admission which returned WNL. Pt admitted in stable condition. VS stable. - Lab Data Result diagrams: 10/19/17 11:42 10/19/17 11:42 Disposition Clinical Impression: Optic neuritis Disposition: ADMITTED IP TO THIS HOSP Condition: Fair Is patient prescribed a controlled substance at d/c from ED?: No Time of Disposition: 18:30 Decision to Admit Reason: Admit from EC
[2017-10-19] MEDS ORDERED: methylPREDNISolone SOD SUCCI 125 MG/2 ML VIAL IV SCH (11:30)
[2017-10-19] MEDS ORDERED: ONDANSETRON 4 MG/2 ML VIAL IVP PRN (11:33)
[2017-10-19] MEDS ORDERED: NALOXONE 0.4 MG/ML 1 ML VIAL IV PRN (11:33)
[2017-10-19] MEDS: SODIUM CHLORIDE 0.9% 1,000 ML IV SCH (11:49)
[2017-10-19] MEDS: HYDROmorphone 0.5 MG/0.5 ML SYRINGE IVP PRN ×3 (11:50→22:34)
[2017-10-19 11:52] LABS: Basophils # (A) 0.1 k/uL (0-0.2); Basophils % (A) 1 %; Eosinophils # (A) 0.4 k/uL (0-0.7); Eosinophils % (A) 4 %; HCT 44.1 % (39.0-53.0); HGB 15.6 gm/dL (13.0-17.5); Lymphocytes # (A) 2.9 k/uL (1.0-4.8); Lymphocytes % (A) 33 %; MCH 30.3 pg (25.0-35.0); MCHC 35.4 g/dL (31.0-37.0); MCV 85.5 fL (80.0-100.0); Monocytes # (A) 0.3 k/uL (0-1.0); Monocytes % (A) 4 %; Neutrophils % (A) 57 %; Platelet Count 266 k/uL (150-450); RBC 5.16 m/uL (4.30-5.90); RDW 13.6 % (11.5-15.5); WBC 8.7 k/uL (3.8-10.6)
[2017-10-19] MEDS ORDERED: methylPREDNISolone SOD SUCCI 250 MG in SODIUM CHLORIDE 0.9% 100 ML IVPB STA (11:55)
[2017-10-19 12:07] LABS: ALT 25 U/L (21-72); AST 20 U/L (17-59); Albumin 4.3 g/dL (3.5-5.0); Alkaline Phosphatase 36 U/L (38-126); Anion Gap 12 mmol/L; Blood Urea Nitrogen 14 mg/dL (9-20); Calcium 9.6 mg/dL (8.4-10.2); Carbon Dioxide 26 mmol/L (22-30); Chloride 102 mmol/L (98-107); Glucose 95 mg/dL (74-99); Potassium 4.6 mmol/L (3.5-5.1); Sodium 140 mmol/L (137-145); Total Bilirubin 0.5 mg/dL (0.2-1.3); Total Protein 6.9 g/dL (6.3-8.2)
[2017-10-19] MEDS ORDERED: LORATADINE 10 MG TAB PO PRN (14:05)
[2017-10-19] MEDS ORDERED: HYDROcodone/APAP 5-325MG 1 EACH TAB PO PRN (15:24)
[2017-10-19] MEDS ORDERED: HYDROcodone/APAP 5-325MG 1 EACH TAB ONE (15:40)
--- NOTE | 2017-10-19 15:41 | P.HPIM ---
History of Present Illness H&P Date: 10/19/17 This is a 41-year-old male patient with a known past medical history of neuromyelitis optica who presented today with complaints of left eye pain. Patient states that over the past week and a half he has increased pain in his left eye. Patient states he has exacerbation of his neuromyeltis optica about every 4-8 months. Patient also complains of worsening visual acuity in his left peripheral field. Patient denies any other neurological symptoms. Patient has a known past medical history of deep vein thrombosis, GERD, musculoskeletal disorder, pneumonia, prostate disorder and left eye neuromyelitis optica. Other history includes bowel resection 6 due to perforation and colostomy and reversal, Hernia repair, colonoscopy, cardiac ablation, cholecystectomy, and appendectomy. Patient denies chest pain and shortness of breath. Patient denies nausea, vomiting, burning with urination or diarrhea at this time. Patient has been started on Solu-Medrol [address] Ayers for neurology has been consulted. Current pain management with Dilaudid and [place]. 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 HX OF DVT LEG ( 2011), ARTHRITIS IN HIPS AND BACK, DDD WITH -back pain PAIN.GENERALIZED WEAKNESS AND HAd BOUTS OF PARALYSIS on and off [id number] USES CANE HX prn History of Any Multi-Drug Resistant Organisms: C-DIFF Date of last positivie culture/infection: 2011 MDRO Source:: None Past Surgical History: Appendectomy, Bowel Resection, Cardiac Ablation, Cholecystectomy, Hernia Repair Additional Past Surgical History / Comment(s): BOWEL RESECTION X6- HAD BOWEL PERFORATION AND COLOSTOMY AND REVERSAL . (2011)., INGUINAL HERNIA , HIATAL HERNIA (FEB 2016), COLONOSCOPY, diverticulitis,inguinal hernia repair Past Anesthesia/Blood Transfusion Reactions: Previous Problems w/ Anesthesia Additional Past Anesthesia/Blood Transfusion Reaction / Comment(s): WOKE UP ONCE DURING SURGERY, POST-OP HEADACHE Past Psychological History: Anxiety, Depression Smoking Status: Current every day smoker Past Alcohol Use History: None Reported Past Drug Use History: Marijuana - Past Family History Mother Family Medical History: No Reported History Father Family Medical History: AFIB, Cancer Additional Family Medical History / Comment(s): MELANOMA x2 Medications and Allergies Home Medications Medication Instructions Recorded Confirmed Type Ergocalciferol (Vitamin D2) 50,000 unit PO FR 09/27/17 10/19/17 History [Vitamin D2] Ferrous Sulfate [Feosol] 325 mg PO HS 09/27/17 10/19/17 History Fluticasone Nasal [place] [Flonase 1 spray EA NOSTRIL DAILY PRN 09/27/17 10/19/17 History Nasal [place]] Loratadine [Claritin] 10 mg PO DAILY PRN 09/27/17 10/19/17 History Tamsulosin [Flomax] 0.4 mg PO BID 09/27/17 10/19/17 History Allergies Allergy/AdvReac Type Severity Reaction Status Date / Time Iodinated Contrast- Oral and Allergy Severe Anaphylaxis Verified 10/19/17 10:31 IV Dye [Iodinated Contrast Media - IV Dye] bee pollen Allergy Anaphylaxis Verified 10/19/17 10:31 iodine Allergy Anaphylaxis Verified 10/19/17 10:31 shellfish derived [Shellfish] Allergy Anaphylaxis Verified 10/19/17 10:31 Sulfa (Sulfonamide Allergy low BP Verified 10/19/17 10:31 Antibiotics) Physical Exam Vitals: Vital Signs Temp Pulse Pulse Resp BP BP Pulse Ox 10/19/17 13:27 97.4 F L 61 17 115/71 95 10/19/17 11:50 66 18 116/70 97 10/19/17 09:47 98.2 F 76 18 125/85 95 Intake and Output 10/19/17 10/19/17 10/19/17 06:59 14:59 22:59 Other: Weight 81.647 kg Head normocephalic HEENT visual changes to left eye particular in the left peripheral field Neck supple Lungs clear to auscultation bilaterally no wheezing or crackles Heart regular rate and rhythm S1-S2, no rub or gallop Abdomen is soft nontender nondistended positive bowel sounds no hepatosplenomegaly Extremities no edema Neuro alert and orientated to 3. Equal strength throughout. cranial nerves intact Results CBC & Chem 7: 10/19/17 11:42 10/19/17 11:42 Labs: Abnormal Lab Results - Last 24 Hours (Table) 10/19/17 Range/Units 11:42 Alkaline Phosphatase 36 L (38-126) U/L Assessment and Plan Assessment: 1. 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 Dr. Ayers for neurology has been consulted and patient has been started on Solu-Medrol 250 mg. 2. Enlarged prostate versus neurogenic bladder. Patient managed on Flomax 3. History of GERD status post Nissa Fundoplicaiton 4. History of diverticulitis and colitis requiring bowel resection with colectomy and reversal of colostomy. 5. History of DVT of the leg several years ago completed anticoagulation treatment 6. Nicotine dependence patient educated greater than 3 minutes on smoking cessation DVT prophylaxis heparin, GI prophylaxis Pepcid Time with Patient: Greater than 30 (Greater than 60% of the total time spent in counseling and coordination of care.I performed an examination of the patient and discussed their management with the Nurse Practitioner. I have reviewed the Nurse Practitioner's notes and agree with the documented findings and plan of care)
[2017-10-19 17:36] LABS: Glucose,Whole Blood 123 mg/dL (75-99)
[2017-10-19] MEDS: methylPREDNISolone SOD SUCCI 250 MG in SODIUM CHLORIDE 0.9% 100 ML IVPB SCH (19:51)
[2017-10-19] MEDS: FAMOTIDINE 20 MG TAB PO SCH (19:53)
[2017-10-19] MEDS: HEPARIN SODIUM,PORCINE 5,000 UNIT/ML 1 ML VIAL SQ SCH (19:53)
[2017-10-19] MEDS: FERROUS SULFATE 325 MG TAB PO SCH (20:57)
[2017-10-19] MEDS: TAMSULOSIN 0.4 MG CAP.ER.24H PO SCH (20:57)
[2017-10-19] MEDS: INSULIN ASPART 100 UNIT/ML 1 ML 10 ML VIAL SQ SCH (21:25)
[2017-10-19 21:33] LABS: Glucose,Whole Blood 158 mg/dL (75-99)
[2017-10-20] MEDS: HYDROmorphone 0.5 MG/0.5 ML SYRINGE IVP PRN ×6 (01:34→21:30)
[2017-10-20] MEDS: methylPREDNISolone SOD SUCCI 250 MG in SODIUM CHLORIDE 0.9% 100 ML IVPB SCH ×3 (03:31→21:16)
[2017-10-20 07:27] LABS: Glucose,Whole Blood 129 mg/dL (75-99)
[2017-10-20] MEDS: HYDROcodone/APAP 5-325MG 1 EACH TAB PO PRN ×4 (07:52→23:10)
[2017-10-20] MEDS: HEPARIN SODIUM,PORCINE 5,000 UNIT/ML 1 ML VIAL SQ SCH ×2 (07:52→21:10)
[2017-10-20] MEDS: INSULIN ASPART 100 UNIT/ML 1 ML 10 ML VIAL SQ SCH ×4 (07:52→21:12)
[2017-10-20] MEDS: FAMOTIDINE 20 MG TAB PO SCH ×2 (07:52→21:10)
[2017-10-20] MEDS: TAMSULOSIN 0.4 MG CAP.ER.24H PO SCH ×2 (07:53→21:10)
[2017-10-20 09:16] LABS: Basophils % (A) 0 %; Eosinophils % (A) 0 %; HCT 46.1 % (39.0-53.0); HGB 15.6 gm/dL (13.0-17.5); Lymphocytes # (A) 1.1 k/uL (1.0-4.8); Lymphocytes % (A) 8 %; MCH 29.1 pg (25.0-35.0); MCHC 33.7 g/dL (31.0-37.0); MCV 86.3 fL (80.0-100.0); Mean Platelet Volume 6.2; Monocytes # (A) 0.1 k/uL (0-1.0); Monocytes % (A) 1 %; Neutrophils # (A) 13.1 k/uL (1.3-7.7); Neutrophils % (A) 91 %; Platelet Count 286 k/uL (150-450); RBC 5.34 m/uL (4.30-5.90); RDW 13.7 % (11.5-15.5); WBC 14.4 k/uL (3.8-10.6)
[2017-10-20 09:20] LABS: ALT 24 U/L (21-72); AST 19 U/L (17-59); Albumin 4.4 g/dL (3.5-5.0); Alkaline Phosphatase 44 U/L (38-126); Anion Gap 16 mmol/L; Blood Urea Nitrogen 10 mg/dL (9-20); Calcium 9.6 mg/dL (8.4-10.2); Carbon Dioxide 22 mmol/L (22-30); Chloride 99 mmol/L (98-107); Glucose 211 mg/dL (74-99); Potassium 4.1 mmol/L (3.5-5.1); Sodium 137 mmol/L (137-145); Total Bilirubin 0.4 mg/dL (0.2-1.3); Total Protein 6.9 g/dL (6.3-8.2)
--- NOTE | 2017-10-20 11:22 | CONS ---
CONSULTATION DATE OF CONSULTATION: 10/19/2017. CHIEF COMPLAINT: Optic neuritis. HISTORY OF PRESENT ILLNESS: Mr. Valencia is a 42-year-old male, who is being evaluated today on 10/19/2017 by the neurology service per the request of Dr. Garcia for optic neuritis. The patient has had multiple previous episodes consistent with optic neuritis requiring IV steroid treatment with improvement in his symptoms. He states that several years ago, he was being worked up for neuromyelitis optica at the [facility], but the workup was never completed and he did not follow up for any further testing. He presents today to [facility] Emergency room complaining of a few days of left eye pain and distorted vision. He states that the left visual field of the left eye is completely blurred out. He also has a circular area in the center of his visual field of the left eye that is also blurred out. He denies any extremity numbness or weakness. He denies any headache or dizziness. His CBC and comprehensive metabolic profile were reviewed and were normal except for minimal hyperglycemia at 123. The patient was started on IV Solu-Medrol 250 mg every 8 hours and was admitted for further management. At the time of my evaluation, he is lying in his bed and appears to be in no acute distress. He denies any changes with his symptoms thus far. His 1st Solu-Medrol dose is being given at the time of my evaluation. PAST MEDICAL HISTORY: Demyelinating disorder, gastroesophageal reflux disease, arthritis, deep venous thrombosis, orthopedic procedures, history of bowel resection, appendectomy, cardiac ablation, cholecystectomy, hernia repair, depression, anxiety disorder. SOCIAL HISTORY: The patient is a current every day smoker. He occasionally smokes marijuana. He denies any alcohol use. FAMILY HISTORY: Positive for melanoma and cardiac arrhythmia. REVIEW OF SYSTEM: CONSTITUTIONAL: Negative. EYES: As mentioned above. ENT: Negative. CARDIOVASCULAR: Negative. RESPIRATORY: Negative. NEUROLOGICAL: As mentioned above. GASTROINTESTINAL: Positive for occasional heartburn. GENITOURINARY: Negative. PSYCHIATRIC: Positive for history of depression and anxiety disorder. DERMATOLOGICAL: Negative. ENDOCRINE: Negative. MUSCULOSKELETAL: Positive for occasional joint pain and low back pain. HOME MEDICATIONS: Reviewed in the chart. ALLERGIES: IV DYE, BEE POLLEN, SHELLFISH, SULFA DRUGS. PHYSICAL EXAM: Vital signs show a temperature of 97.4, pulse 61, respirations 17, blood pressure 115/71. GENERAL APPEARANCE: The patient is a well-developed male who appears to be in no acute distress. HEENT: Normocephalic, atraumatic. No facial asymmetry is seen. Extraocular muscles are intact. Neck is supple with no masses felt. CARDIOVASCULAR: Regular rate and rhythm. ABDOMEN: Nontender, nondistended. Extremities showed no edema or clubbing. NEUROLOGICAL: The patient is awake and oriented x3. Speech and language are normal. Strength is full in all 4 extremities. Sensory was normal to light touch in all 4 extremities. Cranial nerve testing showed a left visual field cut involving the left eye. No tremors or seizure-like activity is seen. IMPRESSION: 1. Acute left optic neuritis. 2. Demyelinating disorder. 3. Visual changes. 4. Left eye pain. RECOMMENDATION: The patient's symptoms are consistent with acute optic neuritis. I had a lengthy discussion with him regarding the natural history of this condition and the prognosis. I also had a lengthy discussion with him regarding his incomplete workup on whether he does have neuromyelitis optica or not. I advised him to follow up in outpatient clinic so a complete workup can be done. For now, I will keep him on Solu-Medrol 250 mg IV every 8 hours. Continue Accu-Cheks and sliding scale insulin. The patient will need an updated MRI of the brain and cervical spine, which will be ordered in outpatient setting. Continue neuro checks. I will continue to follow with you. Further recommendations to follow. Thank you, Dr. Garcia, for allowing me to participate in the care of your patient. If you have any questions, please feel free to contact me. MMODL / IJN: [id number] /
--- NOTE | 2017-10-20 11:44 | P.PN ---
Subjective Progress Note Date: 10/20/17 This is a 41-year-old male patient with a known past medical history of neuromyelitis optica who presented today with complaints of left eye pain. Patient states that over the past week and a half he has increased pain in his left eye. Patient states he has exacerbation of his neuromyeltis optica about every 4-8 months. Patient also complains of worsening visual acuity in his left peripheral field. Patient denies any other neurological symptoms. Patient has a known past medical history of deep vein thrombosis, GERD, musculoskeletal disorder, pneumonia, prostate disorder and left eye neuromyelitis optica. Other history includes bowel resection 6 due to perforation and colostomy and reversal, Hernia repair, colonoscopy, cardiac ablation, cholecystectomy, and appendectomy. Patient denies chest pain and shortness of breath. Patient denies nausea, vomiting, burning with urination or diarrhea at this time. Patient has been started on Solu-Medrol [address] Ayers for neurology has been consulted. Current pain management with Dilaudid and [place]. On 10/20/2017 patient is currently resting comfortably in bed. Still having left eye pain and decreased peripheral vision in left eye. Dr. Glynn following. Denies chest pain or shortness of breath at this time. Objective - Vital Signs Vital signs: Vital Signs Temp 97.6 F 10/20/17 05:51 Pulse 96 10/20/17 05:51 Resp 17 10/20/17 05:51 BP 119/77 10/20/17 05:51 Pulse Ox 95 10/20/17 05:51 Intake & Output 10/19/17 10/20/17 10/20/17 18:59 06:59 18:59 Weight 81.647 kg Other: # Voids 1 - Exam Head normocephalic HEENT: Decreased left peripheral visual acuity Neck supple Lungs clear to auscultation bilaterally no wheezing or crackles Heart regular rate and rhythm S1-S2, no rub or gallop Abdomen is soft nontender nondistended positive bowel sounds no hepatosplenomegaly Extremities no edema Neuro alert and orientated to 3 - Labs CBC & Chem 7: 10/20/17 08:28 10/20/17 08:28 Labs: Abnormal Lab Results - Last 24 Hours (Table) 07/03/18 07/03/18 07/03/18 Range/Units 11:42 17:33 21:21 WBC (3.8-10.6) k/uL Neutrophils # (1.3-7.7) k/uL Glucose (74-99) mg/dL POC Glucose (mg/dL) 123 H 158 H (75-99) mg/dL Alkaline Phosphatase 36 L (38-126) U/L 10/20/17 10/20/17 10/20/17 Range/Units 06:58 08:28 08:28 WBC 14.4 H (3.8-10.6) k/uL Neutrophils # 13.1 H (1.3-7.7) k/uL Glucose 211 H (74-99) mg/dL POC Glucose (mg/dL) 129 H (75-99) mg/dL Alkaline Phosphatase (38-126) U/L Assessment and Plan Assessment: 1. 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 Dr. Ayers for neurology has been consulted and patient has been started on Solu-Medrol [address] Ayers patient is to follow-up in outpatient clinic so complete workup for neuromyelitis optica can be completed and will need an updated MRI of the brain and cervical spine which will be ordered in outpatient setting. Patient will be continued on IV Solu-Medrol to 50 mg every 8 hours per neurology 2. Enlarged prostate versus neurogenic bladder. Patient managed on Flomax 3. History of GERD status post Nissa Fundoplicaiton 4. History of diverticulitis and colitis requiring bowel resection with colectomy and reversal of colostomy. 5. History of DVT of the leg several years ago completed anticoagulation treatment 6. Nicotine dependence patient educated greater than 3 minutes on smoking cessation DVT prophylaxis heparin, GI prophylaxis Pepcid I performed an examination of the patient and discussed their management with the Nurse Practitioner. I have reviewed the Nurse Practitioner's notes and agree with the documented findings and plan of care
[2017-10-20 12:08] LABS: Glucose,Whole Blood 150 mg/dL (75-99)
[2017-10-20] MEDS: valACYclovir 500 MG TAB PO SCH ×2 (13:00→21:09)
[2017-10-20] MEDS: SODIUM CHLORIDE 0.9% 1,000 ML IV SCH (13:01)
[2017-10-20 16:58] LABS: Glucose,Whole Blood 126 mg/dL (75-99)
[2017-10-20 21:09] LABS: Glucose,Whole Blood 130 mg/dL (75-99)
[2017-10-20] MEDS: FERROUS SULFATE 325 MG TAB PO SCH (21:10)
[2017-10-21] MEDS: HYDROmorphone 0.5 MG/0.5 ML SYRINGE IVP PRN ×7 (00:43→21:03)
[2017-10-21] MEDS: HYDROcodone/APAP 5-325MG 1 EACH TAB PO PRN ×5 (03:58→22:09)
[2017-10-21] MEDS: methylPREDNISolone SOD SUCCI 250 MG in SODIUM CHLORIDE 0.9% 100 ML IVPB SCH ×3 (04:28→20:58)
[2017-10-21 07:12] LABS: Glucose,Whole Blood 112 mg/dL (75-99)
[2017-10-21] MEDS: INSULIN ASPART 100 UNIT/ML 1 ML 10 ML VIAL SQ SCH ×4 (07:19→20:59)
[2017-10-21 07:27] LABS: Basophils % (A) 0 %; Eosinophils % (A) 0 %; HCT 42.1 % (39.0-53.0); HGB 14.2 gm/dL (13.0-17.5); Lymphocytes # (A) 1.5 k/uL (1.0-4.8); Lymphocytes % (A) 6 %; MCH 28.6 pg (25.0-35.0); MCHC 33.8 g/dL (31.0-37.0); MCV 84.7 fL (80.0-100.0); Mean Platelet Volume 6.5; Monocytes % (A) 4 %; Neutrophils # (A) 20.2 k/uL (1.3-7.7); Neutrophils % (A) 89 %; Platelet Count 317 k/uL (150-450); RBC 4.97 m/uL (4.30-5.90); RDW 13.3 % (11.5-15.5); WBC 22.8 k/uL (3.8-10.6)
[2017-10-21 07:44] LABS: Anion Gap 12 mmol/L; Blood Urea Nitrogen 14 mg/dL (9-20); Calcium 9.4 mg/dL (8.4-10.2); Carbon Dioxide 25 mmol/L (22-30); Chloride 102 mmol/L (98-107); Glucose 117 mg/dL (74-99); Potassium 4.3 mmol/L (3.5-5.1); Sodium 139 mmol/L (137-145)
[2017-10-21] MEDS: valACYclovir HCL 1,000 MG TABLET PO SCH ×2 (08:24→21:02)
[2017-10-21] MEDS: TAMSULOSIN 0.4 MG CAP.ER.24H PO SCH ×2 (08:25→21:02)
[2017-10-21] MEDS: FAMOTIDINE 20 MG TAB PO SCH ×2 (08:25→21:02)
[2017-10-21] MEDS: HEPARIN SODIUM,PORCINE 5,000 UNIT/ML 1 ML VIAL SQ SCH ×2 (08:25→21:02)
[2017-10-21] MEDS: SODIUM CHLORIDE 0.9% 1,000 ML IV SCH (09:39)
--- NOTE | 2017-10-21 10:12 | P.PN ---
Subjective Progress Note Date: 10/21/17 This is a 41-year-old male patient with a known past medical history of neuromyelitis optica who presented today with complaints of left eye pain. Patient states that over the past week and a half he has increased pain in his left eye. Patient states he has exacerbation of his neuromyeltis optica about every 4-8 months. Patient also complains of worsening visual acuity in his left peripheral field. Patient denies any other neurological symptoms. Patient has a known past medical history of deep vein thrombosis, GERD, musculoskeletal disorder, pneumonia, prostate disorder and left eye neuromyelitis optica. Other history includes bowel resection 6 due to perforation and colostomy and reversal, Hernia repair, colonoscopy, cardiac ablation, cholecystectomy, and appendectomy. Patient denies chest pain and shortness of breath. Patient denies nausea, vomiting, burning with urination or diarrhea at this time. Patient has been started on Solu-Medrol [address] Ayers for neurology has been consulted. Current pain management with Dilaudid and [place]. On 10/20/2017 patient is currently resting comfortably in bed. Still having left eye pain and decreased peripheral vision in left eye. Dr. Glynn following. Denies chest pain or shortness of breath at this time. On 10/21/2017 patient is currently resting comfortable in bed. Patient does state that there is some improvement in left-sided pain and peripheral vision in the left eye. Denies chest pain or shortness of breath at this time Objective - Vital Signs Vital signs: Vital Signs Temp 98.2 F 10/21/17 05:45 Pulse 79 10/21/17 05:45 Resp 18 10/21/17 05:45 BP 122/79 10/21/17 05:45 Pulse Ox 92 L 10/21/17 05:45 Intake & Output 10/20/17 10/21/17 10/21/17 18:59 06:59 18:59 Intake Total 240 500 200 Balance 240 500 200 Weight 81.647 kg Intake: Oral 240 500 200 Other: # Voids 2 1 # Bowel Movements 0 - Exam Head normocephalic HEENT: Decreased left peripheral visual acuity Neck supple Lungs clear to auscultation bilaterally no wheezing or crackles Heart regular rate and rhythm S1-S2, no rub or gallop Abdomen is soft nontender nondistended positive bowel sounds no hepatosplenomegaly Extremities no edema Neuro alert and orientated to 3 - Labs CBC & Chem 7: 10/21/17 06:44 10/21/17 06:44 Labs: Abnormal Lab Results - Last 24 Hours (Table) 10/20/17 10/20/17 10/20/17 Range/Units 12:05 16:48 21:05 WBC (3.8-10.6) k/uL Neutrophils # (1.3-7.7) k/uL Glucose (74-99) mg/dL POC Glucose (mg/dL) 150 H 126 H 130 H (75-99) mg/dL 10/21/17 10/21/17 10/21/17 Range/Units 06:44 06:44 07:09 WBC 22.8 H (3.8-10.6) k/uL Neutrophils # 20.2 H (1.3-7.7) k/uL Glucose 117 H (74-99) mg/dL POC Glucose (mg/dL) 112 H (75-99) mg/dL Assessment and Plan Assessment: 1. 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 Dr. Ayers for neurology has been consulted and patient has been started on Solu-Medrol [address] Ayers patient is to follow-up in outpatient clinic so complete workup for neuromyelitis optica can be completed and will need an updated MRI of the brain and cervical spine which will be ordered in outpatient setting. Patient will be continued on IV Solu-Medrol to 250 mg every 8 hours per neurology 2. Enlarged prostate versus neurogenic bladder. Patient managed on Flomax 3. History of GERD status post Nissa Fundoplicaiton 4. History of diverticulitis and colitis requiring bowel resection with colectomy and reversal of colostomy. 5. History of DVT of the leg several years ago completed anticoagulation treatment 6. Nicotine dependence patient educated greater than 3 minutes on smoking cessation 7. History of shingles. Due to patient receiving high-dose steroids at this time Valtrex has been reordered. 8. Leukocytosis. WBC Blood Cell 22.8. Likely related to high steroid treatment at this time. Continue to monitor DVT prophylaxis heparin, GI prophylaxis Pepcid I performed an examination of the patient and discussed their management with the Nurse Practitioner. I have reviewed the Nurse Practitioner's notes and agree with the documented findings and plan of care
[2017-10-21 11:59] LABS: Glucose,Whole Blood 180 mg/dL (75-99)
--- NOTE | 2017-10-21 12:49 | P.PN ---
Subjective Progress Note Date: 10/21/17 Principal diagnosis: Optic neuritis This is a 42-year-old male continuing to be evaluated by the neurology service for optic neuritis. He has had multiple previous episodes in the past that responded to IV steroids. He had been seen by her prehospital neurology and diagnosed with neuromyelitis optica. However, a complete workup evidently was never done. He had presented to the emergency room with a few days of left thigh pain and blurred vision in his left eye. He has a long- standing left lateral vision deficit. He denied any other focal neurological symptoms. He was started on IV Solu-Medrol 250 mg every 8 hours. He says the pain and blurriness are slowly resolving. At the time of my exam he is resting comfortably in bed playing cards with his family. He is in no acute distress. Objective - Vital Signs Vital signs: Vital Signs Temp 98.2 F 10/21/17 05:45 Pulse 79 10/21/17 05:45 Resp 18 10/21/17 05:45 BP 122/79 10/21/17 05:45 Pulse Ox 92 L 10/21/17 05:45 Intake & Output 10/20/17 10/21/17 10/21/17 18:59 06:59 18:59 Intake Total 240 500 200 Balance 240 500 200 Weight 81.647 kg Intake: Oral 240 500 200 Other: # Voids 2 1 # Bowel Movements 0 - Constitutional General appearance: Present: cooperative, no acute distress - EENT Eyes: Present: EOMI, PERRLA. Absent: abnormal pupil, ptosis ENT: Present: hearing grossly normal - Neck Neck: Present: normal ROM. Absent: rigidity - Respiratory Respiratory: negative: prolonged expiration, prolonged inspiration - Cardiovascular Rhythm: regular - Gastrointestinal General gastrointestinal: Absent: distended, tenderness - Neurologic Neurologic Comment(s): The patient is alert awake and oriented 3. Speech and language are normal. There is no facial asymmetry. Strength is 5 out of 5 in bilateral upper and lower extremities. There is no sensory deficit. No tremors or seizures are seen. Cranial nerves II through XII are intact globally except for his left peripheral visual blurriness.. - Labs CBC & Chem 7: 10/21/17 06:44 10/21/17 06:44 Labs: Abnormal Lab Results - Last 24 Hours (Table) 10/20/17 10/20/1710/21/18 Range/Units 16:48 21:05 06:44 WBC 22.8 H (3.8-10.6) k/uL Neutrophils # 20.2 H (1.3-7.7) k/uL Glucose (74-99) mg/dL POC Glucose (mg/dL) 126 H 130 H (75-99) mg/dL 10/21/17 10/21/17 10/21/17 Range/Units 06:44 07:09 11:54 WBC (3.8-10.6) k/uL Neutrophils # (1.3-7.7) k/uL Glucose 117 H (74-99) mg/dL POC Glucose (mg/dL) 112 H 180 H (75-99) mg/dL Assessment and Plan (1) Demyelinating disease of central nervous system Current Visit: Yes Status: Chronic Code(s): G37.9 - DEMYELINATING DISEASE OF CENTRAL NERVOUS SYSTEM, UNSPECIFIED SNOMED Code(s): 8421742 (2) Abnormal peripheral vision of left eye Current Visit: Yes Status: Chronic Code(s): H53.452 - OTHER LOCALIZED VISUAL FIELD DEFECT, LEFT EYE SNOMED Code(s): 12745155 (3) Left eye pain Current Visit: Yes Status: Acute Code(s): H57.12 - OCULAR PAIN, LEFT EYE SNOMED Code(s): 56449083 (4) Optic neuritis Current Visit: Yes Status: Chronic Code(s): H46.9 - UNSPECIFIED OPTIC NEURITIS SNOMED Code(s): 44093895 Plan: He does have a long-standing history of optic neuritis. He is going through an acute exacerbation of the same. He will continue on IV steroids as ordered. His symptoms seem to be resolving. Pain medications as needed. This should be used sparingly. We will see him in an outpatient setting as he will need updated MRI of the brain and cervical spine with and without contrast. He may need an updated CSF study, and this can be done in our office as an outpatient. We will continue to follow his progress. I have performed a history and physical on the above patient. I have reviewed the above note, and agree.
[2017-10-21 17:03] LABS: Glucose,Whole Blood 112 mg/dL (75-99)
[2017-10-21 21:01] LABS: Glucose,Whole Blood 118 mg/dL (75-99)
[2017-10-21] MEDS: FERROUS SULFATE 325 MG TAB PO SCH (21:02)
[2017-10-22] MEDS: HYDROmorphone 0.5 MG/0.5 ML SYRINGE IVP PRN ×6 (00:28→22:21)
[2017-10-22] MEDS: methylPREDNISolone SOD SUCCI 250 MG in SODIUM CHLORIDE 0.9% 100 ML IVPB SCH ×3 (04:49→20:00)
[2017-10-22] MEDS: HYDROcodone/APAP 5-325MG 1 EACH TAB PO PRN ×2 (06:43→20:07)
[2017-10-22 07:07] LABS: Glucose,Whole Blood 115 mg/dL (75-99)
[2017-10-22] MEDS: INSULIN ASPART 100 UNIT/ML 1 ML 10 ML VIAL SQ SCH ×4 (07:12→21:41)
[2017-10-22 08:01] LABS: Basophils % (A) 0 %; Eosinophils % (A) 0 %; HCT 43.7 % (39.0-53.0); HGB 14.4 gm/dL (13.0-17.5); Lymphocytes # (A) 1.1 k/uL (1.0-4.8); Lymphocytes % (A) 6 %; MCH 28.6 pg (25.0-35.0); MCV 86.6 fL (80.0-100.0); Mean Platelet Volume 6.2; Monocytes # (A) 0.4 k/uL (0-1.0); Monocytes % (A) 3 %; Neutrophils # (A) 15.8 k/uL (1.3-7.7); Neutrophils % (A) 91 %; Platelet Count 313 k/uL (150-450); RBC 5.04 m/uL (4.30-5.90); RDW 13.3 % (11.5-15.5); WBC 17.4 k/uL (3.8-10.6)
[2017-10-22 08:11] LABS: Anion Gap 11 mmol/L; Blood Urea Nitrogen 13 mg/dL (9-20); Calcium 9.3 mg/dL (8.4-10.2); Carbon Dioxide 31 mmol/L (22-30); Chloride 98 mmol/L (98-107); Glucose 118 mg/dL (74-99); Potassium 4.3 mmol/L (3.5-5.1); Sodium 140 mmol/L (137-145)
[2017-10-22] MEDS: HEPARIN SODIUM,PORCINE 5,000 UNIT/ML 1 ML VIAL SQ SCH ×2 (09:00→20:01)
[2017-10-22] MEDS: FAMOTIDINE 20 MG TAB PO SCH ×2 (09:00→20:01)
[2017-10-22] MEDS: valACYclovir HCL 1,000 MG TABLET PO SCH ×2 (09:00→20:01)
[2017-10-22] MEDS: TAMSULOSIN 0.4 MG CAP.ER.24H PO SCH ×2 (09:00→20:01)
[2017-10-22] MEDS: SODIUM CHLORIDE 0.9% 1,000 ML IV SCH (11:19)
[2017-10-22] MEDS ORDERED: ERGOCALCIFEROL 50,000 UNIT CAP PO SCH (12:00)
[2017-10-22 12:12] LABS: Glucose,Whole Blood 150 mg/dL (75-99)
--- NOTE | 2017-10-22 12:59 | P.PN ---
Subjective Progress Note Date: 10/22/17 This is a 41-year-old male patient with a known past medical history of neuromyelitis optica who presented today with complaints of left eye pain. Patient states that over the past week and a half he has increased pain in his left eye. Patient states he has exacerbation of his neuromyeltis optica about every 4-8 months. Patient also complains of worsening visual acuity in his left peripheral field. Patient denies any other neurological symptoms. Patient has a known past medical history of deep vein thrombosis, GERD, musculoskeletal disorder, pneumonia, prostate disorder and left eye neuromyelitis optica. Other history includes bowel resection 6 due to perforation and colostomy and reversal, Hernia repair, colonoscopy, cardiac ablation, cholecystectomy, and appendectomy. Patient denies chest pain and shortness of breath. Patient denies nausea, vomiting, burning with urination or diarrhea at this time. Patient has been started on Solu-Medrol [address] Ayers for neurology has been consulted. Current pain management with Dilaudid and [place]. On 10/20/2017 patient is currently resting comfortably in bed. Still having left eye pain and decreased peripheral vision in left eye. Dr. Glynn following. Denies chest pain or shortness of breath at this time. On 10/21/2017 patient is currently resting comfortable in bed. Patient does state that there is some improvement in left-sided pain and peripheral vision in the left eye. Denies chest pain or shortness of breath at this time On 10/22/2017 patient is currently resting in bed. Does state that there is some improvement division in regards to left eye but still having some pain. She denies chest pain or shortness of breath at this time. Denies nausea, vomiting or diarrhea Objective - Vital Signs Vital signs: Vital Signs Temp 97.3 F L 10/22/17 06:13 Pulse 70 10/22/17 06:13 Resp 18 10/22/17 09:06 BP 117/73 10/22/17 06:13 Pulse Ox 97 10/22/17 06:13 Intake & Output 10/21/17 10/22/17 10/22/17 18:59 06:59 18:59 Intake Total 400 500 300 Output Total 2 Balance 400 498 300 Weight 81.647 kg 81.647 kg Intake: Oral 400 500 300 Output: Urine 2 Other: # Voids 2 1 # Bowel Movements 0 - Exam Head normocephalic HEENT: Decreased left peripheral visual acuity Neck supple Lungs clear to auscultation bilaterally no wheezing or crackles Heart regular rate and rhythm S1-S2, no rub or gallop Abdomen is soft nontender nondistended positive bowel sounds no hepatosplenomegaly Extremities no edema Neuro alert and orientated to 3 - Labs CBC & Chem 7: 10/22/17 07:00 10/22/17 07:00 Labs: Abnormal Lab Results - Last 24 Hours (Table) 10/21/17 10/21/17 10/22/17 Range/Units 17:00 20:58 07:00 WBC 17.4 H (3.8-10.6) k/uL Neutrophils # 15.8 H (1.3-7.7) k/uL Carbon Dioxide (22-30) mmol/L Glucose (74-99) mg/dL POC Glucose (mg/dL) 112 H 118 H (75-99) mg/dL 10/22/17 10/22/17 10/22/17 Range/Units 07:00 07:04 12:05 WBC (3.8-10.6) k/uL Neutrophils # (1.3-7.7) k/uL Carbon Dioxide 31 H (22-30) mmol/L Glucose 118 H (74-99) mg/dL POC Glucose (mg/dL) 115 H 150 H (75-99) mg/dL Assessment and Plan Assessment: 1. 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 Dr. Ayers for neurology has been consulted and patient has been started on Solu-Medrol [address] Ayers patient is to follow-up in outpatient clinic so complete workup for neuromyelitis optica can be completed and will need an updated MRI of the brain and cervical spine which will be ordered in outpatient setting. Patient will be continued on IV Solu-Medrol to 250 mg every 8 hours per neurology. Current pain medication include Dilaudid 0.5 mg every 3 hours and [place]. 2. Enlarged prostate versus neurogenic bladder. Patient managed on Flomax 3. History of GERD status post Nissa Fundoplicaiton 4. History of diverticulitis and colitis requiring bowel resection with colectomy and reversal of colostomy. 5. History of DVT of the leg several years ago completed anticoagulation treatment 6. Nicotine dependence patient educated greater than 3 minutes on smoking cessation 7. History of shingles. Due to patient receiving high-dose steroids at this time Valtrex has been reordered. 8. Leukocytosis. WBC Blood Cell 17.4. Likely related to high steroid treatment at this time. Continue to monitor DVT prophylaxis heparin, GI prophylaxis Pepcid I performed an examination of the patient and discussed their management with the Nurse Practitioner. I have reviewed the Nurse Practitioner's notes and agree with the documented findings and plan of care
--- NOTE | 2017-10-22 13:13 | P.PN ---
Subjective Progress Note Date: 10/22/17 Principal diagnosis: Optic neuritis This is a 42-year-old male continuing to be evaluated by the neurology service for optic neuritis. He has had multiple previous episodes in the past that responded to IV steroids. He had been seen by her prehospital neurology and diagnosed with neuromyelitis optica. However, a complete workup evidently was never done. He had presented to the emergency room with a few days of left thigh pain and blurred vision in his left eye. He has a long- standing left lateral vision deficit. He denied any other focal neurological symptoms. He was started on IV Solu-Medrol 250 mg every 8 hours. He says the pain and blurriness are slowly resolving. At the time of my exam he is resting comfortably in bed playing cards with his family. He is in no acute distress. 10/22/2017 update the patient continues on IV Solu-Medrol every 8 hours. He says his pleurally weakness continues to resolved but he still has some pain in the left eye. He can be quite persistent and asking for increased doses of pain medication. At the time my exam is resting comfortably in bed eating his lunch and seems to be no acute distress. Objective - Vital Signs Vital signs: Vital Signs Temp 97.3 F L 10/22/17 06:13 Pulse 70 10/22/17 06:13 Resp 18 10/22/17 09:06 BP 117/73 10/22/17 06:13 Pulse Ox 97 10/22/17 06:13 Intake & Output 10/21/17 10/22/17 10/22/17 18:59 06:59 18:59 Intake Total 400 500 300 Output Total 2 Balance 400 498 300 Weight 81.647 kg 81.647 kg Intake: Oral 400 500 300 Output: Urine 2 Other: # Voids 2 1 # Bowel Movements 0 - Constitutional General appearance: Present: average body habitus, cooperative, no acute distress - EENT Eyes: Present: EOMI, PERRLA. Absent: abnormal pupil, ptosis ENT: Present: hearing grossly normal - Neck Neck: Present: normal ROM. Absent: rigidity - Respiratory Respiratory: negative: prolonged expiration, prolonged inspiration - Cardiovascular Rhythm: regular - Gastrointestinal General gastrointestinal: Absent: distended - Neurologic Neurologic Comment(s): The patient is alert awake and oriented 3. Speech and language are normal. There is no facial asymmetry. Strength is 5 out of 5 in bilateral upper and lower extremities. There is no sensory deficit. No tremors or seizures are seen. Cranial nerves II through XII are intact globally except for blurriness in the left peripheral visual field. - Labs CBC & Chem 7: 10/22/17 07:00 10/22/17 07:00 Labs: Abnormal Lab Results - Last 24 Hours (Table) 10/21/17 10/21/17 10/22/17 Range/Units 17:00 20:58 07:00 WBC 17.4 H (3.8-10.6) k/uL Neutrophils # 15.8 H (1.3-7.7) k/uL Carbon Dioxide (22-30) mmol/L Glucose (74-99) mg/dL POC Glucose (mg/dL) 112 H 118 H (75-99) mg/dL 10/22/17 10/22/17 10/22/17 Range/Units 07:00 07:04 12:05 WBC (3.8-10.6) k/uL Neutrophils # (1.3-7.7) k/uL Carbon Dioxide 31 H (22-30) mmol/L Glucose 118 H (74-99) mg/dL POC Glucose (mg/dL) 115 H 150 H (75-99) mg/dL Assessment and Plan (1) Demyelinating disease of central nervous system Current Visit: Yes Status: Chronic Code(s): G37.9 - DEMYELINATING DISEASE OF CENTRAL NERVOUS SYSTEM, UNSPECIFIED SNOMED Code(s): 0262870 (2) Abnormal peripheral vision of left eye Current Visit: Yes Status: Chronic Code(s): H53.452 - OTHER LOCALIZED VISUAL FIELD DEFECT, LEFT EYE SNOMED Code(s): 17153360 (3) Left eye pain Current Visit: Yes Status: Acute Code(s): H57.12 - OCULAR PAIN, LEFT EYE SNOMED Code(s): 78064491 (4) Optic neuritis Current Visit: Yes Status: Chronic Code(s): H46.9 - UNSPECIFIED OPTIC NEURITIS SNOMED Code(s): 70090424 Plan: He does have a long-standing history of optic neuritis. He is going through an acute exacerbation of the same. He will continue on IV steroids as ordered. We would like him to receive 10 full doses. If he needs to be discharged before that he could be given oral prednisone. However, he prefers not to use oral prednisone due to his long-standing gastrointestinal problems. His symptoms seem to be resolving. Pain medications as needed. This should be used sparingly. We will see him in an outpatient setting as he will need updated MRI of the brain and cervical spine with and without contrast. He may need an updated CSF study, and this can be done in our office as an outpatient. We will continue to follow his progress. He needs to establish with a local yarn bleaching machine operator for routine checks. I have performed a history and physical on the above patient. I have reviewed the above note, and agree.
[2017-10-22 14:18] VITALS: RESP 16
[2017-10-22 17:10] LABS: Glucose,Whole Blood 157 mg/dL (75-99)
[2017-10-22] MEDS: FERROUS SULFATE 325 MG TAB PO SCH (20:01)
[2017-10-22 21:02] LABS: Glucose,Whole Blood 115 mg/dL (75-99)
[2017-10-22] MEDS: DOCUSATE 100 MG CAP PO PRN (22:24)
[2017-10-23] MEDS: HYDROmorphone 0.5 MG/0.5 ML SYRINGE IVP PRN ×5 (02:44→15:38)
[2017-10-23] MEDS: methylPREDNISolone SOD SUCCI 250 MG in SODIUM CHLORIDE 0.9% 100 ML IVPB SCH ×2 (03:48→11:09)
[2017-10-23 06:26] LABS: Basophils % (A) 0 %; Eosinophils % (A) 0 %; HCT 43.3 % (39.0-53.0); HGB 14.7 gm/dL (13.0-17.5); Lymphocytes # (A) 1.2 k/uL (1.0-4.8); Lymphocytes % (A) 8 %; MCH 29.1 pg (25.0-35.0); MCHC 34.1 g/dL (31.0-37.0); MCV 85.5 fL (80.0-100.0); Mean Platelet Volume 6.2; Monocytes # (A) 0.5 k/uL (0-1.0); Monocytes % (A) 3 %; Neutrophils # (A) 12.4 k/uL (1.3-7.7); Neutrophils % (A) 88 %; Platelet Count 280 k/uL (150-450); RBC 5.06 m/uL (4.30-5.90); RDW 13.3 % (11.5-15.5); WBC 14.1 k/uL (3.8-10.6)
[2017-10-23 06:35] LABS: Anion Gap 11 mmol/L; Blood Urea Nitrogen 15 mg/dL (9-20); Calcium 9.2 mg/dL (8.4-10.2); Carbon Dioxide 30 mmol/L (22-30); Chloride 97 mmol/L (98-107); Glucose 128 mg/dL (74-99); Sodium 138 mmol/L (137-145)
[2017-10-23 07:21] LABS: Glucose,Whole Blood 119 mg/dL (75-99)
[2017-10-23] MEDS: INSULIN ASPART 100 UNIT/ML 1 ML 10 ML VIAL SQ SCH ×2 (08:05→11:58)
[2017-10-23] MEDS: TAMSULOSIN 0.4 MG CAP.ER.24H PO SCH (08:33)
[2017-10-23] MEDS: valACYclovir HCL 1,000 MG TABLET PO SCH (08:33)
[2017-10-23] MEDS: HEPARIN SODIUM,PORCINE 5,000 UNIT/ML 1 ML VIAL SQ SCH (08:33)
[2017-10-23] MEDS: FAMOTIDINE 20 MG TAB PO SCH (08:34)
[2017-10-23] MEDS: SODIUM CHLORIDE 0.9% 1,000 ML IV SCH (11:02)
--- NOTE | 2017-10-23 11:21 | P.PN ---
Subjective Progress Note Date: 10/23/17 Principal diagnosis: Optic neuritis This is a 42-year-old male continuing to be evaluated by the neurology service for optic neuritis. He has had multiple previous episodes in the past that responded to IV steroids. He had been seen by her prehospital neurology and diagnosed with neuromyelitis optica. However, a complete workup evidently was never done. He had presented to the emergency room with a few days of left thigh pain and blurred vision in his left eye. He has a long- standing left lateral vision deficit. He denied any other focal neurological symptoms. He was started on IV Solu-Medrol 250 mg every 8 hours. He says the pain and blurriness are slowly resolving. At the time of my exam he is resting comfortably in bed playing cards with his family. He is in no acute distress. 10/22/2017 update the patient continues on IV Solu-Medrol every 8 hours. He says his pleurally weakness continues to resolved but he still has some pain in the left eye. He can be quite persistent and asking for increased doses of pain medication. At the time my exam is resting comfortably in bed eating his lunch and seems to be no acute distress. 10/24/2007 update- patient's symptoms continue to improve on IV Solu-Medrol. He has now received 11 total doses. He continues to be in no acute distress. Vision is not quite back to normal, so we'll send him home on oral prednisone tapered from 40 mg daily over the course of 2 weeks. Objective - Vital Signs Vital signs: Vital Signs Temp 97.1 F L 10/23/17 06:13 Pulse 67 10/23/17 06:13 Resp 16 10/23/17 06:13 BP 127/78 10/23/17 06:13 Pulse Ox 98 10/23/17 06:13 Intake & Output 10/22/17 10/23/17 10/23/17 18:59 06:59 18:59 Intake Total 600 200 Output Total 2 Balance 598 200 Weight 81.647 kg Intake: Oral 600 200 Output: Urine 2 Other: Voiding Method Toilet # Voids 3 2 # Bowel Movements 0 - Constitutional General appearance: Present: cooperative, no acute distress - EENT Eyes: Present: EOMI, PERRLA. Absent: abnormal pupil, ptosis - Neck Neck: Present: normal ROM. Absent: rigidity - Respiratory Respiratory: negative: prolonged expiration, prolonged inspiration - Cardiovascular Rhythm: regular - Gastrointestinal General gastrointestinal: Absent: distended - Neurologic Neurologic Comment(s): The patient is alert awake and oriented 3. Speech and language are normal. There is no facial asymmetry. Strength is 5 out of 5 in bilateral upper and lower extremities. There is no sensory deficit. No tremors or seizures are seen. Cranial nerves II through XII are intact globally. Left peripheral vision continues to be impaired. - Labs CBC & Chem 7: 10/23/17 06:09 10/23/17 06:09 Labs: Abnormal Lab Results - Last 24 Hours (Table) 10/22/17 10/22/17 10/22/17 Range/Units 12:05 17:08 21:00 WBC (3.8-10.6) k/uL Neutrophils # (1.3-7.7) k/uL Chloride (98-107) mmol/L Glucose (74-99) mg/dL POC Glucose (mg/dL) 150 H 157 H 115 H (75-99) mg/dL 10/23/17 10/23/17 10/23/17 Range/Units 06:09 06:09 07:16 WBC 14.1 H (3.8-10.6) k/uL Neutrophils # 12.4 H (1.3-7.7) k/uL Chloride 97 L (98-107) mmol/L Glucose 128 H (74-99) mg/dL POC Glucose (mg/dL) 119 H (75-99) mg/dL Assessment and Plan (1) Demyelinating disease of central nervous system Current Visit: Yes Status: Chronic Code(s): G37.9 - DEMYELINATING DISEASE OF CENTRAL NERVOUS SYSTEM, UNSPECIFIED SNOMED Code(s): 5352743 (2) Abnormal peripheral vision of left eye Current Visit: Yes Status: Chronic Code(s): H53.452 - OTHER LOCALIZED VISUAL FIELD DEFECT, LEFT EYE SNOMED Code(s): 06062767 (3) Left eye pain Current Visit: Yes Status: Acute Code(s): H57.12 - OCULAR PAIN, LEFT EYE SNOMED Code(s): 69515024 (4) Optic neuritis Current Visit: Yes Status: Chronic Code(s): H46.9 - UNSPECIFIED OPTIC NEURITIS SNOMED Code(s): 53960703 Plan: He does have a long-standing history of optic neuritis. He is going through an acute exacerbation of the same. He has received 11 doses of IV steroids as ordered. He will be sent home on oral prednisone taper from 40 mg over the course of 2 weeks. He recently had told us that he preferred not to use oral prednisone due to his long-standing gastrointestinal problems. He says this should not be a problem over the course of 2 weeks. Problems with extended periods of use. His symptoms seem to be resolving. Pain medications as needed. This should be used sparingly. We will see him in an outpatient setting as he will need updated MRI of the brain and cervical spine with and without contrast. He may need an updated CSF study, and this can be done in our office as an outpatient. He needs to establish with a local dba manager for routine checks. He wants to try Dr. Morgan. He is otherwise cleared from a neurological standpoint we will follow him up in the office. I have performed a history and physical on the above patient. I have reviewed the above note, and agree.
[2017-10-23 11:53] LABS: Glucose,Whole Blood 173 mg/dL (75-99)
[2017-10-23] MEDS: DOCUSATE 100 MG CAP PO PRN (14:19)
[2017-10-23 15:44] VITALS: BP 121/67; PULSE 89; TEMP 97.9
--- NOTE | 2017-10-23 16:52 | P.DS ---
Providers Date of admission: 10/19/17 11:40 Expected date of discharge: 10/23/17 Attending physician: Luke Garcia Consults: 10/19/17 11:33 Consult Physician Stat Consulting Provider: Mireya Quigley Consult Reason/Comments: Optic Neuritis- seen previously by provider Do you want consulting provider notified?: Already Contacted Primary care physician: Luke Garcia [facility] Course: Diagnoses on discharge: 1. 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 Dr. Ayers for neurology has been consulted and patient has been started on Solu-Medrol [address] Ayers patient is to follow-up in outpatient clinic so complete workup for neuromyelitis optica can be completed and will need an updated MRI of the brain and cervical spine which will be ordered in outpatient setting. Patient will be continued on IV Solu-Medrol to 250 mg every 8 hours per neurology. Current pain medication include Dilaudid 0.5 mg every 3 hours and [place]. 2. Enlarged prostate versus neurogenic bladder. Patient managed on Flomax 3. History of GERD status post Nissa Fundoplicaiton 4. History of diverticulitis and colitis requiring bowel resection with colectomy and reversal of colostomy. 5. History of DVT of the leg several years ago completed anticoagulation treatment 6. Nicotine dependence patient educated greater than 3 minutes on smoking cessation 7. History of shingles. Due to patient receiving high-dose steroids at this time Valtrex has been reordered. 8. Leukocytosis. WBC Blood Cell 17.4. Likely related to high steroid treatment at this time. Continue to monitor Hospital course: This is a 41-year-old male patient with a known past medical history of neuromyelitis optica who presented today with complaints of left eye pain. Patient states that over the past week and a half he has increased pain in his left eye. Patient states he has exacerbation of his neuromyeltis optica about every 4-8 months. Patient also complains of worsening visual acuity in his left peripheral field. Patient denies any other neurological symptoms. Patient has a known past medical history of deep vein thrombosis, GERD, musculoskeletal disorder, pneumonia, prostate disorder and left eye neuromyelitis optica. Other history includes bowel resection 6 due to perforation and colostomy and reversal, Hernia repair, colonoscopy, cardiac ablation, cholecystectomy, and appendectomy. Patient denies chest pain and shortness of breath. Patient denies nausea, vomiting, burning with urination or diarrhea at this time. Patient has been started on Solu-Medrol [address] Ayers for neurology has been consulted. Current pain management with Dilaudid and [place]. On 10/20/2017 patient is currently resting comfortably in bed. Still having left eye pain and decreased peripheral vision in left eye. Dr. Glynn following. Denies chest pain or shortness of breath at this time. On 10/21/2017 patient is currently resting comfortable in bed. Patient does state that there is some improvement in left-sided pain and peripheral vision in the left eye. Denies chest pain or shortness of breath at this time On 10/22/2017 patient is currently resting in bed. Does state that there is some improvement division in regards to left eye but still having some pain. She denies chest pain or shortness of breath at this time. Denies nausea, vomiting or diarrhea On 10/23/2017 patient is alert and oriented 3 in no apparent distress he is still complaining of some blurriness in his vision is still complaining of headache otherwise no complaints at this time there is no chest pain or shortness of breath no cough no nausea or vomiting no abdominal pain no diarrhea and no urinary symptoms he was seen by neurology and was cleared for discharge today with oral steroid taper. Patient Condition at Discharge: Fair Plan - Discharge Summary Discharge Rx Participant: No New Discharge Prescriptions: New HYDROcodone/APAP 5-325MG [[place] 5-325] 1 each PO Q4HR PRN tab PRN Reason: Pain predniSONE 10 mg PO DIRECTED #40 tab valACYclovir HCL [Valtrex] 1,000 mg PO BID tablet Continue Tamsulosin [Flomax] 0.4 mg PO BID Ferrous Sulfate [Iron (65 MG Elemental)] 325 mg PO HS Ergocalciferol (Vitamin D2) [Vitamin D2] 50,000 unit PO FR Fluticasone Nasal [place] [Flonase Nasal [place]] 1 spray EA NOSTRIL DAILY PRN PRN Reason: Allergy Symptoms Loratadine [Claritin] 10 mg PO DAILY PRN PRN Reason: Allergy Symptoms Discharge Medication List Ergocalciferol (Vitamin D2) [Vitamin D2] 50,000 unit PO FR 09/27/17 [History] Ferrous Sulfate [Iron (65 MG Elemental)] 325 mg PO HS 09/27/17 [History] Fluticasone Nasal [place] [Flonase Nasal [place]] 1 spray EA NOSTRIL DAILY PRN 09/27 [History] Loratadine [Claritin] 10 mg PO DAILY PRN 09/27/17 [History] Tamsulosin [Flomax] 0.4 mg PO BID 09/27/17 [History] HYDROcodone/APAP 5-325MG [[place] 5-325] 1 each PO Q4HR PRN tab 10/23/17 [Rx] predniSONE 10 mg PO DIRECTED #40 tab 10/23/17 [Rx] valACYclovir HCL [Valtrex] 1,000 mg PO BID tablet 10/23/17 [Rx] Follow up Appointment(s)/Referral(s): Mireya Quigley MD [STAFF PHYSICIAN] - 1 Week Luke Garcia MD [Primary Care Provider] - 3 Days Patient Instructions/Handouts: Optic Neuritis (DC) Activity/Diet/Wound Care/Special Instructions: DC RX Per- Soraida: Pt needs to complete optic neuritis workup outpatient. Needs MRI brain and cervical spine. Also recommend seeing a internal control specialist for routine checks. Regular diet Activity as tolerated. NO smoking, cessation information provided and enforced.
== END 2017-10-23 17:27 | disposition home or self-care (01) | DRG 60 ==
LOC: EC 09:34 → 4MS4W 11:40
PROVIDERS: ADMIT Internal Medicine; ATTEND Internal Medicine
DX: G36.0 Neuromyelitis optica [Devic] (principal); N40.0 Benign prostatic hyperplasia without lower urinary tract symptoms; N31.9 Neuromuscular dysfunction of bladder, unspecified; F12.90 Cannabis use, unspecified, uncomplicated; F17.200 Nicotine dependence, unspecified, uncomplicated; F32.9 Major depressive disorder, single episode, unspecified; F41.9 Anxiety disorder, unspecified; K21.9 Gastro-esophageal reflux disease without esophagitis; D72.829 Elevated white blood cell count, unspecified; Z90.49 Acquired absence of other specified parts of digestive tract; Z86.718 Personal history of other venous thrombosis and embolism; Z71.6 Tobacco abuse counseling; Z80.8 Family history of malignant neoplasm of other organs or systems; Z86.19 Personal history of other infectious and parasitic diseases; Z88.2 Allergy status to sulfonamides; Z91.030 Bee allergy status; Z91.041 Radiographic dye allergy status; Z91.013 Allergy to seafood; G37.9 Demyelinating disease of central nervous system, unspecified
CPT/HCPCS: 36415; 80048; 80053; 85025; 96374; 99284

== ENCOUNTER 2018-01-28 11:57 | Inpatient (IN) | payer MEDICARE, OTHER ==
[2018-01-28] MEDS ORDERED: methylPREDNISolone SOD SUCCI 250 MG in SODIUM CHLORIDE 0.9% 100 ML IVPB STA (12:53)
[2018-01-28] MEDS ORDERED: SODIUM CHLORIDE 0.9% 1,000 ML IV ONE (12:53)
--- NOTE | 2018-01-28 12:58 | ED ---
Eye Problem HPI - General Chief complaint: Eye Problems Stated complaint: eye pain Time Seen by Provider: 01/28/18 12:38 Source: patient, RN notes reviewed, old records reviewed Mode of arrival: ambulatory Limitations: no limitations - History of Present Illness Initial comments: Patient is a 43-year-old male presents emergency department today with chief complaint of visual changes. The past 3 days. He has a history of viral neuritis. Patient states he was having visual disturbances and blurriness within the left and right eye. Patient states that this is a typical prodromal syndrome.. On optic neuritis. 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 Miranda in as well as called his neurologist. They both consults that his primary care physician and was told to come here to the emergency department for admission for IV steroid. Patient states he does have some pain with extraocular eye movements. He states that within the left eye he feels like he has a clicking sensation when looking up and down of the left eye. Patient states that he came from the arthralgias office was eyes are currently dilated. He states that he's been having some intermittent chills and fevers. He denies any other constitutional symptoms. He denies any chest pressures of breath coughing or abdominal pain. He has had multiple colon resections as chronic diarrhea. Patient states that he uses medical marijuana for pain relief at home.Patient denies any recent shortness of breath, chest pain, back pain, abdominal pain, nausea vomiting, numbness or tingling, dysuria or hematuria, constipation or diarrhea, or any other current symptoms - Related Data Home Medications Medication Instructions Recorded Confirmed Ergocalciferol (Vitamin D2) 50,000 unit PO FR 09/27/17 01/28/18 [Vitamin D2] Ferrous Sulfate [Iron (65 MG 325 mg PO HS 09/27/17 01/28/18 Elemental)] Fluticasone Nasal [place] [Flonase 1 spray EA NOSTRIL DAILY PRN 09/27/17 01/28/18 Nasal [place]] Loratadine [Claritin] 10 mg PO DAILY PRN 09/27/17 01/28/18 Tamsulosin [Flomax] 0.4 mg PO BID 09/27/17 01/28/18 Ascorbic Acid [Vitamin C] 500 mg PO DAILY 01/28/18 01/28/18 Allergies Allergy/AdvReac Type Severity Reaction Status Date / Time Iodinated Contrast- Oral and Allergy Severe Anaphylaxis Verified 01/28/18 12:40 IV Dye [Iodinated Contrast Media - IV Dye] bee pollen Allergy Anaphylaxis Verified 01/28/18 12:40 iodine Allergy Anaphylaxis Verified 01/28/18 12:40 shellfish derived [Shellfish] Allergy Anaphylaxis Verified 01/28/18 12:40 Sulfa (Sulfonamide Allergy low BP Verified 01/28/18 12:40 Antibiotics) Review of Systems ROS Statement: Those systems with pertinent positive or pertinent negative responses have been documented in the HPI. ROS Other: All systems not noted in ROS Statement are negative. Past Medical History Past Medical History: Deep Vein Thrombosis (DVT), Eye Disorder, GERD/Reflux, Musculoskeletal Disorder, Osteoarthritis (OA), Pneumonia, Prostate Disorder Additional Past Medical History / Comment(s): 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 HX OF DVT LEG ( 2011), ARTHRITIS IN HIPS AND BACK, DDD WITH -back pain PAIN.GENERALIZED WEAKNESS AND HAd BOUTS OF PARALYSIS on and off [id number] USES CANE HX prn History of Any Multi-Drug Resistant Organisms: C-DIFF Date of last positivie culture/infection: 2011 MDRO Source:: None Past Surgical History: Appendectomy, Bowel Resection, Cardiac Ablation, Cholecystectomy, Hernia Repair Additional Past Surgical History / Comment(s): BOWEL RESECTION X6- HAD BOWEL PERFORATION AND COLOSTOMY AND REVERSAL . (2011)., INGUINAL HERNIA , HIATAL HERNIA (FEB 2016), COLONOSCOPY, diverticulitis,inguinal hernia repair Past Anesthesia/Blood Transfusion Reactions: Previous Problems w/ Anesthesia Additional Past Anesthesia/Blood Transfusion Reaction / Comment(s): WOKE UP ONCE DURING SURGERY, POST-OP HEADACHE Past Psychological History: Anxiety, Depression Smoking Status: Current every day smoker Past Alcohol Use History: None Reported Past Drug Use History: Marijuana - Past Family History Mother Family Medical History: No Reported History Father Family Medical History: AFIB, Cancer Additional Family Medical History / Comment(s): MELANOMA x2 General Exam - General Exam Comments Initial Comments: This is a pleasant 43-year-old male. Patient is alert and oriented 3. Patient appears in no significant distress. Limitations: no limitations General appearance: alert, in no apparent distress Head exam: Present: atraumatic, normocephalic, normal inspection Eye exam: Present: normal appearance, PERRL, EOMI, other (Bilateral dilated pupil after coming from the hot plate plywood press laborer. They are reactive to light. Patient has pain with bright light and bilateral eyes. Extraocular eye movements are intact. He reports pain worse with the left eye with superior and lateral gazing.). Absent: scleral icterus, conjunctival injection, periorbital swelling ENT exam: Present: normal exam, mucous membranes moist Neck exam: Present: normal inspection. Absent: tenderness, meningismus, lymphadenopathy Respiratory exam: Present: normal lung sounds bilaterally. Absent: respiratory distress, wheezes, rales, rhonchi, stridor Cardiovascular Exam: Present: regular rate, normal rhythm, normal heart sounds. Absent: systolic murmur, diastolic murmur, rubs, gallop, clicks GI/Abdominal exam: Present: soft, normal bowel sounds. Absent: distended, tenderness, guarding, rebound, rigid Extremities exam: Present: normal inspection, full ROM, normal capillary refill. Absent: tenderness, pedal edema, joint swelling, calf tenderness Back exam: Present: normal inspection Neurological exam: Present: alert, oriented X3, CN II-XII intact Psychiatric exam: Present: normal affect, normal mood Skin exam: Present: warm, dry, intact, normal color. Absent: rash Course Vital Signs 01/28/18 12:04 Temperature 98.3 F Pulse Rate 70 Respiratory 18 Rate Blood Pressure 133/94 O2 Sat by Pulse 98 Oximetry Medical Decision Making - Medical Decision Making Patient's 43-year-old male sent by PCP for admission for optic neuritis relapse. Patient reports it's likely viral. Patient states he's been having intermittent fevers and chills. Pain with extra ocular movements and with bright lights. He states typically the pain is in the left eye but currently he is having pain within both eyes. Patient reports seeing cloudy blurry vision over the left eye. And has had poor peripheral vision since 2015. At this time Patient will be started on IV fluids and IV steroid. He is discussed with Dr. Hall who will discuss case with patient's PCP Dr. Garcia. 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 Morgan. - Lab Data Result diagrams: 01/28/18 13:09 Lab Results 01/28/18 Range/Units 13:09 WBC 9.9 (3.8-10.6) k/uL RBC 5.28 (4.30-5.90) m/uL Hgb 15.6 (13.0-17.5) gm/dL Hct 46.3 (39.0-53.0) % MCV 87.7 (80.0-100.0) fL MCH 29.6 (25.0-35.0) pg MCHC 33.7 (31.0-37.0) g/dL RDW 13.5 (11.5-15.5) % Plt Count 290 (150-450) k/uL Neutrophils % 63 % Lymphocytes % 28 % Monocytes % 4 % Eosinophils % 3 % Basophils % 1 % Neutrophils # 6.3 (1.3-7.7) k/uL Lymphocytes # 2.8 (1.0-4.8) k/uL Monocytes # 0.4 (0-1.0) k/uL Eosinophils # 0.3 (0-0.7) k/uL Basophils # 0.1 (0-0.2) k/uL Disposition Clinical Impression: Optic neuritis Disposition: ADMITTED IP TO THIS HOSP Condition: Stable Is patient prescribed a controlled substance at d/c from ED?: No Referrals: Luke Garcia MD [Primary Care Provider] - 1-2 days Time of Disposition: 13:34
[2018-01-28] MEDS: SODIUM CHLORIDE 0.9% 1,000 ML IV SCH (13:19)
[2018-01-28 13:29] LABS: Basophils # (A) 0.1 k/uL (0-0.2); Basophils % (A) 1 %; Eosinophils # (A) 0.3 k/uL (0-0.7); Eosinophils % (A) 3 %; HCT 46.3 % (39.0-53.0); HGB 15.6 gm/dL (13.0-17.5); Lymphocytes # (A) 2.8 k/uL (1.0-4.8); Lymphocytes % (A) 28 %; MCH 29.6 pg (25.0-35.0); MCHC 33.7 g/dL (31.0-37.0); MCV 87.7 fL (80.0-100.0); Mean Platelet Volume 6.4; Monocytes # (A) 0.4 k/uL (0-1.0); Monocytes % (A) 4 %; Neutrophils # (A) 6.3 k/uL (1.3-7.7); Neutrophils % (A) 63 %; Platelet Count 290 k/uL (150-450); RBC 5.28 m/uL (4.30-5.90); RDW 13.5 % (11.5-15.5); WBC 9.9 k/uL (3.8-10.6)
[2018-01-28] MEDS ORDERED: KETOROLAC 30 MG/ML 1 ML VIAL IVP STA (13:33)
[2018-01-28] MEDS ORDERED: MORPHINE SULFATE 2 MG/ML SYRINGE IVP STA (13:33)
[2018-01-28] MEDS ORDERED: ACETAMINOPHEN TAB 325 MG TAB PO PRN (13:34)
[2018-01-28] MEDS ORDERED: IBUPROFEN 400 MG TAB PO PRN (13:34)
[2018-01-28] MEDS ORDERED: NALOXONE 0.4 MG/ML 1 ML VIAL IV PRN (13:34)
[2018-01-28] MEDS ORDERED: MORPHINE SULFATE 4 MG/ML SYRINGE IV PRN (13:34)
[2018-01-28] MEDS ORDERED: KETOROLAC 30 MG/ML 1 ML VIAL IVP PRN (13:34)
[2018-01-28] MEDS ORDERED: LORATADINE 10 MG TAB PO PRN (13:36)
[2018-01-28] MEDS ORDERED: FLUTICASONE 50MCG/SPRAY NASAL 16GM EA NOSTRIL PRN (13:36)
[2018-01-28 13:37] LABS: Anion Gap 8 mmol/L; Blood Urea Nitrogen 16 mg/dL (9-20); C Reactive Protein <5.0 mg/L (<10.0); Calcium 9.8 mg/dL (8.4-10.2); Carbon Dioxide 28 mmol/L (22-30); Chloride 104 mmol/L (98-107); Glucose 91 mg/dL (74-99); Potassium 4.6 mmol/L (3.5-5.1); Sodium 140 mmol/L (137-145)
[2018-01-28] MEDS ORDERED: ERGOCALCIFEROL 50,000 UNIT CAP PO SCH (13:45)
[2018-01-28] MEDS ORDERED: methylPREDNISolone SOD SUCCI 250 MG in SODIUM CHLORIDE 0.9% 100 ML IVPB SCH (14:15)
[2018-01-28 14:34] LABS: Erythrocyte Sedimentation Rate 10 mm/hr (0-15)
[2018-01-28] MEDS ORDERED: PANTOPRAZOLE 40 MG/10 ML VIAL IVP ONE (14:54)
--- NOTE | 2018-01-28 15:10 | P.HPIM ---
History of Present Illness H&P Date: 01/28/18 Chief Complaint: Pain and vision changes in both eyes This is a 43-year-old male with a known past medical history of neuromyelitis optica, treated DVT of the lower extremity, GERD, pneumonia, BPH and multiple bowel resections due to perforation and colostomy with reversal. Patient presents to the hospital with complaints of stabbing like pain behind the eyes as well as blurry vision for the past 3 days. He was seen by both his foxing closer and neurologist as they recommended the patient go to the emergency room for steroid treatment. Patient has been started on IV Solu- Medrol 250 mg IV every 6 hours. Both neurology and ophthalmology have been placed on consult. Patient has required hospitalization in the past for steroids to treat his neuromyelitis optica. Patient denies any chest pain or shortness of breath. Denies any nausea or vomiting. Denies any bowel movement changes he does have chronic diarrhea due to his multiple bowel surgeries. Denies any burning with urination. Denies any numbness or tingling in the extremities. He is complaining of a slight rash around his neck that has been there for 2 months in which he'll be seeing dermatology in the out patient setting. 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 HX OF DVT LEG ( 2011), ARTHRITIS IN HIPS AND BACK, DDD WITH -back pain PAIN.GENERALIZED WEAKNESS AND HAd BOUTS OF PARALYSIS on and off [id number] USES CANE HX prn History of Any Multi-Drug Resistant Organisms: C-DIFF Date of last positivie culture/infection: 2011 MDRO Source:: None Past Surgical History: Appendectomy, Bowel Resection, Cardiac Ablation, Cholecystectomy, Hernia Repair Additional Past Surgical History / Comment(s): BOWEL RESECTION X6- HAD BOWEL PERFORATION AND COLOSTOMY AND REVERSAL . (2011)., INGUINAL HERNIA , HIATAL HERNIA (FEB 2016), COLONOSCOPY, diverticulitis,inguinal hernia repair Past Anesthesia/Blood Transfusion Reactions: Previous Problems w/ Anesthesia Additional Past Anesthesia/Blood Transfusion Reaction / Comment(s): WOKE UP ONCE DURING SURGERY, POST-OP HEADACHE Past Psychological History: Anxiety, Depression Smoking Status: Current every day smoker Past Alcohol Use History: None Reported Past Drug Use History: Marijuana - Past Family History Mother Family Medical History: No Reported History Father Family Medical History: AFIB, Cancer Additional Family Medical History / Comment(s): MELANOMA x2 Medications and Allergies Home Medications Medication Instructions Recorded Confirmed Type Ergocalciferol (Vitamin D2) 50,000 unit PO FR 09/27/17 01/28/18 History [Vitamin D2] Ferrous Sulfate [Iron (65 MG 325 mg PO HS 09/27/17 01/28/18 History Elemental)] Fluticasone Nasal [place] [Flonase 1 spray EA NOSTRIL DAILY PRN 09/27/17 01/28/18 History Nasal [place]] Loratadine [Claritin] 10 mg PO DAILY PRN 09/27/17 01/28/18 History Tamsulosin [Flomax] 0.4 mg PO BID 09/27/17 01/28/18 History Ascorbic Acid [Vitamin C] 500 mg PO DAILY 01/28/18 01/28/18 History Allergies Allergy/AdvReac Type Severity Reaction Status Date / Time Iodinated Contrast- Oral and Allergy Severe Anaphylaxis Verified 01/28/18 12:40 IV Dye [Iodinated Contrast Media - IV Dye] bee pollen Allergy Anaphylaxis Verified 01/28/18 12:40 iodine Allergy Anaphylaxis Verified 01/28/18 12:40 shellfish derived [Shellfish] Allergy Anaphylaxis Verified 01/28/18 12:40 Sulfa (Sulfonamide Allergy low BP Verified 01/28/18 12:40 Antibiotics) Physical Exam Vitals: Vital Signs Temp Pulse Resp BP Pulse Ox 01/28/18 14:24 98.3 F 77 20 123/82 99 01/28/18 12:04 98.3 F 70 18 133/94 98 Intake and Output 01/27/18 01/28/18 01/28/18 22:59 06:59 14:59 Other: Weight 81.647 kg HEENT pupils are dilated because of recent eye exam. Patient has tenderness with extraocular range of motion especially when looking upwards. Head normocephalic Neck supple mild contact rash appearance around the front of the neck. Lungs clear to auscultation bilaterally no wheezing or crackles Heart regular rate and rhythm S1-S2, no rub or gallop Abdomen is soft nontender nondistended positive bowel sounds no hepatosplenomegaly Extremities no edema Neuro alert and orientated to 3 Results CBC & Chem 7: 01/28/18 13:09 01/28/18 13:09 Assessment and Plan Assessment: 1. 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 Place patient on Solu- Medrol 250 mg IV every 6 hours. Consult neurology and ophthalmology. For pain control we'll place patient on IV Dilaudid 1 mg every 4 hours as needed for pain and [place] 5/325 every 6 hours as needed for pain. Also will place patient on insulin sliding scale while on IV steroids 2. History of a possible enlarged prostate continue Flomax 3. History of DVT of the leg several years ago completed anticoagulation treatment 4. Nicotine dependence: Patient has currently quit tobacco use and is using nicotine patches. We'll resume his nicotine patch 14 mg daily 5. History of diverticulitis, colitis and bowel perforation requiring multiple bowel resections with colostomy and reversal of colostomy 6. Patient uses daily medical marijuana for his chronic eye pain GI prophylaxis Protonix and DVT prophylaxis subcu heparin Time with Patient: Greater than 30 (Greater than 60% of the total time spent in counseling and coordination of care.I performed an examination of the patient and discussed their management with the physician Contaminated Land Consultant. I have reviewed the Physician Contaminated Land Consultant's notes and agree with the documented findings and plan of care)
[2018-01-28] MEDS: ONDANSETRON 4 MG/2 ML VIAL IVP PRN (15:41)
[2018-01-28] MEDS: HYDROmorphone 1 MG/ML 1 ML SYRINGE IVP PRN ×2 (15:42→20:25)
[2018-01-28] MEDS: NICOTINE 14MG/24HR PATCH TRANSDERM SCH (16:53)
[2018-01-28] MEDS: methylPREDNISolone SOD SUCCI 250 MG in SODIUM CHLORIDE 0.9% 100 ML IVPB SCH ×2 (16:53→23:13)
[2018-01-28 17:31] LABS: Glucose,Whole Blood 154 mg/dL (75-99)
[2018-01-28] MEDS: HYDROcodone/APAP 5-325MG 1 EACH TAB PO PRN (17:57)
[2018-01-28] MEDS: INSULIN ASPART 100 UNIT/ML 1 ML 10 ML VIAL SQ SCH ×2 (17:58→20:51)
--- NOTE | 2018-01-28 20:12 | CONS ---
CONSULTATION HISTORY: This is a 43-year-old white male who states that over the last 3 days he noticed having decreased vision in both eyes. In addition, he says there is a dull achy feeling in the area behind his eyes, especially noticeable upon eye movements. He has a history of recurrent optic neuritis in the past and has undergone IV steroid treatment for this previously. The patient states that the symptoms he experienced today are typical of the prodromal syndrome of what he has experienced in the past. The patient went to see his placement assistant today, Dr. Nguyễn Morgan, who encouraged him to present to the hospital for IV steroid treatment. In addition, his neurologist was consulted for monitoring and for consultation. The patient denies any other symptoms currently and is lying comfortably in bed. EXAMINATION: Visual acuity measured 20/80 OD and 20/60 OS. The pupils were sluggish. There no afferent defect. However, the patient stated that he had received dilating drops upon seeing Dr. Morgan at his office earlier in the day. Extraocular movements were full in all gaze positions. There was no complaint of diplopia. On penlight exam, the anterior segments were "clear and quiet" bilaterally. Dilated fundus exam revealed normal-appearing maculae and vessels. There may have been some temporal pallor in both optic nerves. IMPRESSION: Optic neuritis. I agree this patient should be admitted for a course of IV steroid treatment, typically 250 mg of methylprednisolone IV q.i.d. followed by an oral steroid taper upon discharge from the hospital. I would also highly encourage this patient to follow up with a neuro-placement assistant upon discharge from the hospital to determine if any other systemic treatment may be indicated to prevent recurrences of these episodes. MMODL / IJN: [id number] /
[2018-01-28] MEDS: FERROUS SULFATE 325 MG TAB PO SCH (20:25)
[2018-01-28] MEDS: TAMSULOSIN 0.4 MG CAP.ER.24H PO SCH (20:25)
[2018-01-28] MEDS: HEPARIN SODIUM,PORCINE 5,000 UNIT/ML 1 ML VIAL SQ SCH (20:25)
[2018-01-28 20:41] LABS: Glucose,Whole Blood 181 mg/dL (75-99)
[2018-01-28 22:17] LABS: Hemoglobin A1C 5.5 % (4.0-6.0)
[2018-01-29] MEDS: ONDANSETRON 4 MG/2 ML VIAL IVP PRN (00:24)
[2018-01-29] MEDS: HYDROmorphone 1 MG/ML 1 ML SYRINGE IVP PRN ×5 (00:24→21:22)
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
[2018-01-29] MEDS: HYDROcodone/APAP 5-325MG 1 EACH TAB PO PRN ×3 (02:10→23:44)
[2018-01-29] MEDS: SODIUM CHLORIDE 0.9% 1,000 ML IV SCH ×2 (05:04→08:43)
[2018-01-29 07:09] LABS: Glucose,Whole Blood 156 mg/dL (75-99)
[2018-01-29 08:26] LABS: Basophils % (A) 0 %; Eosinophils % (A) 0 %; HCT 44.8 % (39.0-53.0); HGB 14.8 gm/dL (13.0-17.5); Lymphocytes # (A) 1.4 k/uL (1.0-4.8); Lymphocytes % (A) 9 %; MCH 29.1 pg (25.0-35.0); MCV 88.3 fL (80.0-100.0); Mean Platelet Volume 6.3; Monocytes # (A) 0.2 k/uL (0-1.0); Monocytes % (A) 1 %; Neutrophils # (A) 14.4 k/uL (1.3-7.7); Neutrophils % (A) 89 %; Platelet Count 287 k/uL (150-450); RBC 5.08 m/uL (4.30-5.90); RDW 13.4 % (11.5-15.5); WBC 16.1 k/uL (3.8-10.6)
[2018-01-29] MEDS: methylPREDNISolone SOD SUCCI 250 MG in SODIUM CHLORIDE 0.9% 100 ML IVPB SCH ×3 (08:33→23:39)
[2018-01-29] MEDS: ASCORBIC ACID 500 MG TAB PO SCH (08:34)
[2018-01-29] MEDS: NICOTINE 14MG/24HR PATCH TRANSDERM SCH (08:34)
[2018-01-29] MEDS: HEPARIN SODIUM,PORCINE 5,000 UNIT/ML 1 ML VIAL SQ SCH ×2 (08:34→21:21)
[2018-01-29] MEDS: INSULIN ASPART 100 UNIT/ML 1 ML 10 ML VIAL SQ SCH ×4 (08:34→21:21)
[2018-01-29] MEDS: TAMSULOSIN 0.4 MG CAP.ER.24H PO SCH ×2 (08:34→21:21)
[2018-01-29] MEDS: PANTOPRAZOLE 40 MG/10 ML VIAL IV SCH (08:34)
[2018-01-29 08:40] LABS: ALT 66 U/L (21-72); AST 44 U/L (17-59); Albumin 3.9 g/dL (3.5-5.0); Alkaline Phosphatase 41 U/L (38-126); Anion Gap 11 mmol/L; Blood Urea Nitrogen 9 mg/dL (9-20); Calcium 9.5 mg/dL (8.4-10.2); Carbon Dioxide 20 mmol/L (22-30); Chloride 106 mmol/L (98-107); Glucose 164 mg/dL (74-99); Potassium 3.9 mmol/L (3.5-5.1); Sodium 137 mmol/L (137-145); Total Bilirubin 0.5 mg/dL (0.2-1.3); Total Protein 6.8 g/dL (6.3-8.2)
[2018-01-29 11:30] LABS: Glucose,Whole Blood 154 mg/dL (75-99)
--- NOTE | 2018-01-29 15:37 | P.PN ---
Subjective Progress Note Date: 01/29/18 This is a 43-year-old male with a known past medical history of neuromyelitis optica, treated DVT of the lower extremity, GERD, pneumonia, BPH and multiple bowel resections due to perforation and colostomy with reversal. Patient presents to the hospital with complaints of stabbing like pain behind the eyes as well as blurry vision for the past 3 days. He was seen by both his statistics intern and neurologist as they recommended the patient go to the emergency room for steroid treatment. Patient has been started on IV Solu- Medrol 250 mg IV every 6 hours. Both neurology and ophthalmology have been placed on consult. Patient has required hospitalization in the past for steroids to treat his neuromyelitis optica. Patient denies any chest pain or shortness of breath. Denies any nausea or vomiting. Denies any bowel movement changes he does have chronic diarrhea due to his multiple bowel surgeries. Denies any burning with urination. Denies any numbness or tingling in the extremities. He is complaining of a slight rash around his neck that has been there for 2 months in which he'll be seeing dermatology in the out patient setting. On 01/29/2018 patient is alert and oriented 3 in no apparent distress he is complaining of pain around both eyes he is also complaining of mild blurriness in his vision otherwise he denies any complaints there is no fever or chills no headache or dizziness no chest pain no shortness of breath no cough no nausea or vomiting no abdominal pain no diarrhea and no urinary symptoms Objective - Vital Signs Vital signs: Vital Signs Temp 98.2 F 01/29/18 14:07 Pulse 100 01/29/18 14:07 Resp 16 01/29/18 15:11 BP 131/86 01/29/18 14:07 Pulse Ox 96 01/29/18 14:07 Intake & Output 01/28/18 01/29/18 01/29/18 18:59 06:59 18:59 Intake Total 600 Balance 600 Weight 81.647 kg Intake: Oral 600 Other: # Voids 1 1 - Exam HEENT pupils are dilated because of recent eye exam. Patient has tenderness with extraocular range of motion especially when looking upwards. Head normocephalic Neck supple mild contact rash appearance around the front of the neck. Lungs clear to auscultation bilaterally no wheezing or crackles Heart regular rate and rhythm S1-S2, no rub or gallop Abdomen is soft nontender nondistended positive bowel sounds no hepatosplenomegaly Extremities no edema Neuro alert and orientated to 3 - Labs CBC & Chem 7: 01/29/18 08:08 01/29/18 08:08 Labs: Abnormal Lab Results - Last 24 Hours (Table) 01/28/18 01/28/18 01/29/18 Range/Units 17:29 20:40 07:03 WBC (3.8-10.6) k/uL Neutrophils # (1.3-7.7) k/uL Carbon Dioxide (22-30) mmol/L Creatinine (0.66-1.25) mg/dL Glucose (74-99) mg/dL POC Glucose (mg/dL) 154 H 181 H 156 H (75-99) mg/dL 01/29/18 01/29/18 01/29/18 Range/Units 08:08 08:08 11:21 WBC 16.1 H (3.8-10.6) k/uL Neutrophils # 14.4 H (1.3-7.7) k/uL Carbon Dioxide 20 L (22-30) mmol/L Creatinine 0.61 L (0.66-1.25) mg/dL Glucose 164 H (74-99) mg/dL POC Glucose (mg/dL) 154 H (75-99) mg/dL Assessment and Plan Plan: 1. 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 Place patient on Solu- Medrol 250 mg IV every 6 hours. Consult neurology and ophthalmology. For pain control we'll place patient on IV Dilaudid 1 mg every 4 hours as needed for pain and [place] 5/325 every 6 hours as needed for pain. Also will place patient on insulin sliding scale while on IV steroids 2. History of a possible enlarged prostate continue Flomax 3. History of DVT of the leg several years ago completed anticoagulation treatment 4. Nicotine dependence: Patient has currently quit tobacco use and is using nicotine patches. We'll resume his nicotine patch 14 mg daily 5. History of diverticulitis, colitis and bowel perforation requiring multiple bowel resections with colostomy and reversal of colostomy 6. Patient uses daily medical marijuana for his chronic eye pain
[2018-01-29 16:39] LABS: Glucose,Whole Blood 142 mg/dL (75-99)
[2018-01-29 20:56] LABS: Glucose,Whole Blood 193 mg/dL (75-99)
[2018-01-29] MEDS: FERROUS SULFATE 325 MG TAB PO SCH (21:21)
[2018-01-30] MEDS: HYDROmorphone 1 MG/ML 1 ML SYRINGE IVP PRN ×5 (01:47→20:18)
[2018-01-30] MEDS: SODIUM CHLORIDE 0.9% 1,000 ML IV SCH ×3 (02:50→15:39)
[2018-01-30 06:52] LABS: Glucose,Whole Blood 157 mg/dL (75-99)
[2018-01-30] MEDS: HYDROcodone/APAP 5-325MG 1 EACH TAB PO PRN ×3 (07:02→18:23)
[2018-01-30] MEDS: INSULIN ASPART 100 UNIT/ML 1 ML 10 ML VIAL SQ SCH ×4 (07:02→20:18)
[2018-01-30 07:18] LABS: Basophils % (A) 0 %; Eosinophils % (A) 0 %; HCT 40.7 % (39.0-53.0); HGB 13.6 gm/dL (13.0-17.5); Lymphocytes # (A) 1.2 k/uL (1.0-4.8); Lymphocytes % (A) 6 %; MCH 28.6 pg (25.0-35.0); MCHC 33.5 g/dL (31.0-37.0); MCV 85.4 fL (80.0-100.0); Mean Platelet Volume 6.5; Monocytes # (A) 0.5 k/uL (0-1.0); Monocytes % (A) 2 %; Neutrophils # (A) 19.1 k/uL (1.3-7.7); Neutrophils % (A) 92 %; Platelet Count 293 k/uL (150-450); RBC 4.77 m/uL (4.30-5.90); RDW 13.8 % (11.5-15.5); WBC 20.9 k/uL (3.8-10.6)
[2018-01-30 07:35] LABS: ALT 51 U/L (21-72); AST 20 U/L (17-59); Albumin 3.7 g/dL (3.5-5.0); Alkaline Phosphatase 37 U/L (38-126); Anion Gap 10 mmol/L; Blood Urea Nitrogen 16 mg/dL (9-20); Calcium 9.4 mg/dL (8.4-10.2); Carbon Dioxide 27 mmol/L (22-30); Chloride 104 mmol/L (98-107); Glucose 131 mg/dL (74-99); Potassium 3.9 mmol/L (3.5-5.1); Sodium 141 mmol/L (137-145); Total Bilirubin 0.5 mg/dL (0.2-1.3); Total Protein 6.4 g/dL (6.3-8.2)
[2018-01-30] MEDS: methylPREDNISolone SOD SUCCI 250 MG in SODIUM CHLORIDE 0.9% 100 ML IVPB SCH ×3 (08:12→22:37)
[2018-01-30] MEDS: HEPARIN SODIUM,PORCINE 5,000 UNIT/ML 1 ML VIAL SQ SCH ×2 (08:12→20:19)
[2018-01-30] MEDS: NICOTINE 14MG/24HR PATCH TRANSDERM SCH (08:13)
[2018-01-30] MEDS: PANTOPRAZOLE 40 MG/10 ML VIAL IV SCH (08:13)
[2018-01-30] MEDS: ASCORBIC ACID 500 MG TAB PO SCH (08:13)
[2018-01-30] MEDS: TAMSULOSIN 0.4 MG CAP.ER.24H PO SCH ×2 (08:13→20:20)
--- NOTE | 2018-01-30 10:19 | P.PN ---
Subjective Progress Note Date: 01/29/18 This patient is a 43-year-old male who is being treated for bilateral optic neuritis. Patient presented with symptoms of visual changes and retro-orbital eye pain. He was seen by Dr. Marte for a complete ophthalmological evaluation yesterday. Dr. Marte's findings are suggesting bilateral optic neuritis. Patient has had several bouts of this condition over the years. This is his second episode of optic neuritis this year. Patient was admitted to hospital yesterday. He has been started on IV Solu-Medrol therapy. He is to continue on steroid therapy for a total of 3 days. The patient has noted slight improvement today with his vision especially in his left eye. The peripheral vision has shown significant change from initial presentation. We have recommended the patient to follow-up with his neuro-biscuit maker soon after discharge home. We will plan to continue IV Solu-Medrol therapy for a total of 3 days and then he may be discharged on tapering doses of prednisone. He should continue close monitoring of his overall condition due to the complex nature of his recurrent episodes. We will continue close neurological follow- up with the patient during this admission. Objective - Vital Signs Vital signs: Vital Signs Temp 98.2 F 01/29/18 14:07 Pulse 100 01/29/18 14:07 Resp 16 01/29/18 15:11 BP 131/86 01/29/18 14:07 Pulse Ox 96 01/29/18 14:07 Intake & Output 01/29/18 01/29/18 01/30/18 06:59 18:59 06:59 Intake Total 600 Balance 600 Intake: Oral 600 Other: # Voids 1 1 - Exam Physical examination: PHYSICAL EXAMINATION: Patient is resting comfortably in bed. VITAL SIGNS: Blood pressure is [131/86]. Heart rate is [100]. Respiration is [16 ]. Temperature is [98.2]. HEENT: Head is atraumatic, neck is supple, there were no carotid bruits. CHEST: Lungs are clear to auscultation and percussion. CARDIAC: S1, S2 normal rate and rhythm. There is no murmur. ABDOMEN: Soft and nontender. Bowel sounds are present. EXTREMITIES: There is no pedal edema. Peripheral pulses are present. Neurological examination: Patient's neurological examination is unchanged from yesterday. Patient notes slight improvement in his optic neuritis involving the left eye today. - Labs CBC & Chem 7: 01/30/18 06:40 01/30/18 06:40 Labs: Abnormal Lab Results - Last 24 Hours (Table) 01/29/18 01/29/18 01/29/18 Range/Units 07:03 08:08 08:08 WBC 16.1 H (3.8-10.6) k/uL Neutrophils # 14.4 H (1.3-7.7) k/uL Carbon Dioxide 20 L (22-30) mmol/L Creatinine 0.61 L (0.66-1.25) mg/dL Glucose 164 H (74-99) mg/dL POC Glucose (mg/dL) 156 H (75-99) mg/dL 01/29/18 01/29/18 01/29/18 Range/Units 11:21 16:37 20:55 WBC (3.8-10.6) k/uL Neutrophils # (1.3-7.7) k/uL Carbon Dioxide (22-30) mmol/L Creatinine (0.66-1.25) mg/dL Glucose (74-99) mg/dL POC Glucose (mg/dL) 154 H 142 H 193 H (75-99) mg/dL Assessment and Plan (1) Optic neuritis Current Visit: No Status: Acute Code(s): H46.9 - UNSPECIFIED OPTIC NEURITIS SNOMED Code(s): 31523949 Plan: This patient is a 43-year-old right-handed white male who was admitted to hospital for treatment of acute optic neuritis involving both eyes. Patient has a history of recurrent optic neuritis over the last several years. This is his second episode of optic neuritis this year. We are recommending he should be placed on IV Solu-Medrol 250 mg IV piggyback every 6 hours. He will require 3 days of intense therapy with the steroid. He has responded well in the past to this treatment option. Patient states he has been evaluated by Dr. Marte earlier today. The patient did complain of eye pain and retro-orbital eye pain left greater than right related to the optic neuritis. Dr. Marte is recommended IV Solu-Medrol therapy for this patient. His neurological examination at this time is nonfocal. We have recommended 3 days of IV Solu- Medrol therapy and then a discharge plan to include follow-up in the neuro- ophthalmology clinic in [place]. The patient has noticed slight improvement with the vision in his left eye today. Hopefully he will continue to notice ongoing improvement even after discharge home. The patient otherwise seems to be doing fairly well. We will continue close neurological follow-up for the patient during this admission. Once again we have recommended that he should follow-up in the neuro-ophthalmology clinic soon after discharge. His overall prognosis at this time remains very guarded.
[2018-01-30 11:56] LABS: Glucose,Whole Blood 150 mg/dL (75-99)
[2018-01-30 16:29] VITALS: RESP 16
--- NOTE | 2018-01-30 16:35 | P.PN ---
Subjective Progress Note Date: 01/30/18 This is a 43-year-old male with a known past medical history of neuromyelitis optica, treated DVT of the lower extremity, GERD, pneumonia, BPH and multiple bowel resections due to perforation and colostomy with reversal. Patient presents to the hospital with complaints of stabbing like pain behind the eyes as well as blurry vision for the past 3 days. He was seen by both his equipment sterilizer and neurologist as they recommended the patient go to the emergency room for steroid treatment. Patient has been started on IV Solu- Medrol 250 mg IV every 6 hours. Both neurology and ophthalmology have been placed on consult. Patient has required hospitalization in the past for steroids to treat his neuromyelitis optica. Patient denies any chest pain or shortness of breath. Denies any nausea or vomiting. Denies any bowel movement changes he does have chronic diarrhea due to his multiple bowel surgeries. Denies any burning with urination. Denies any numbness or tingling in the extremities. He is complaining of a slight rash around his neck that has been there for 2 months in which he'll be seeing dermatology in the out patient setting. On 01/29/2018 patient is alert and oriented 3 in no apparent distress he is complaining of pain around both eyes he is also complaining of mild blurriness in his vision otherwise he denies any complaints there is no fever or chills no headache or dizziness no chest pain no shortness of breath no cough no nausea or vomiting no abdominal pain no diarrhea and no urinary symptoms. On 01/30/2018 patient was seen and examined he is alert and oriented 3 in no apparent distress still complaining of pain and discomfort around both eyes and some blurriness in his vision otherwise he denies any complaints there is no fever or chills no headache or dizziness no chest pain no shortness of breath no cough no nausea or vomiting no abdominal pain no diarrhea and no urinary symptoms Objective - Vital Signs Vital signs: Vital Signs Temp 98.0 F 01/30/18 16:16 Pulse 65 01/30/18 16:16 Resp 16 01/30/18 16:16 BP 100/59 01/30/18 16:16 Pulse Ox 97 01/30/18 16:16 Intake & Output 01/29/18 01/30/18 01/30/18 18:59 06:59 18:59 Intake Total 600 600 Balance 600 600 Intake: Oral 600 600 Other: # Voids 1 1 3 # Bowel Movements 1 - Exam HEENT pupils are dilated because of recent eye exam. Patient has tenderness with extraocular range of motion especially when looking upwards. Head normocephalic Neck supple mild contact rash appearance around the front of the neck. Lungs clear to auscultation bilaterally no wheezing or crackles Heart regular rate and rhythm S1-S2, no rub or gallop Abdomen is soft nontender nondistended positive bowel sounds no hepatosplenomegaly Extremities no edema Neuro alert and orientated to 3 - Labs CBC & Chem 7: 01/30/18 06:40 01/30/18 06:40 Labs: Abnormal Lab Results - Last 24 Hours (Table) 01/29/18 01/29/18 01/30/18 Range/Units 16:37 20:55 06:40 WBC 20.9 H (3.8-10.6) k/uL Neutrophils # 19.1 H (1.3-7.7) k/uL Glucose (74-99) mg/dL POC Glucose (mg/dL) 142 H 193 H (75-99) mg/dL Alkaline Phosphatase (38-126) U/L 01/30/18 01/30/18 01/30/18 Range/Units 06:40 06:48 11:52 WBC (3.8-10.6) k/uL Neutrophils # (1.3-7.7) k/uL Glucose 131 H (74-99) mg/dL POC Glucose (mg/dL) 157 H 150 H (75-99) mg/dL Alkaline Phosphatase 37 L (38-126) U/L Assessment and Plan Plan: 1. 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 Place patient on Solu- Medrol 250 mg IV every 6 hours. Consult neurology and ophthalmology. For pain control we'll place patient on IV Dilaudid 1 mg every 4 hours as needed for pain and [place] 5/325 every 6 hours as needed for pain. Also will place patient on insulin sliding scale while on IV steroids 2. History of a possible enlarged prostate continue Flomax 3. History of DVT of the leg several years ago completed anticoagulation treatment 4. Nicotine dependence: Patient has currently quit tobacco use and is using nicotine patches. We'll resume his nicotine patch 14 mg daily 5. History of diverticulitis, colitis and bowel perforation requiring multiple bowel resections with colostomy and reversal of colostomy 6. Patient uses daily medical marijuana for his chronic eye pain
[2018-01-30 17:20] LABS: Glucose,Whole Blood 123 mg/dL (75-99)
[2018-01-30 20:15] LABS: Glucose,Whole Blood 214 mg/dL (75-99)
[2018-01-30] MEDS: FERROUS SULFATE 325 MG TAB PO SCH (20:20)
[2018-01-30] MEDS ORDERED: NICOTINE 14MG/24HR PATCH TRANSDERM STA (20:27)
--- NOTE | 2018-01-30 22:01 | P.PN ---
Subjective Progress Note Date: 01/30/18 This patient is a 43-year-old male who is being treated for bilateral optic neuritis. Patient presented with symptoms of visual changes and retro-orbital eye pain. He was seen by Dr. Marte for a complete ophthalmological evaluation yesterday. Dr. Marte's findings are suggesting bilateral optic neuritis. Patient has had several bouts of this condition over the years. This is his second episode of optic neuritis this year. Patient was admitted to hospital yesterday. He has been started on IV Solu-Medrol therapy. He is to continue on steroid therapy for a total of 3 days. The patient has noted slight improvement today with his vision especially in his left eye. The peripheral vision has shown significant change from initial presentation. We have recommended the patient to follow-up with his neuro-street car mechanic soon after discharge home. We will plan to continue IV Solu-Medrol therapy for a total of 3 days and then he may be discharged on tapering doses of prednisone. The patient continues to do well today and has continued to notice slight improvement with the blurriness especially around the perimeter of his visual lazaro in both eyes with the left being mostly involved. He should continue close monitoring of his overall condition due to the complex nature of his recurrent episodes. For pain control the patient has been receiving IV Dilaudid 1 mg every 4 hours when necessary. He also has availability of Narco every 6 hours as needed for breakthrough pain. Patient is also being treated for enlarged prostate and is taking Flomax. We have recommended the patient should follow-up in the neuro-ophthalmology clinic soon after discharge for further assessment and treatment plans. Patient should be stable for discharge home tomorrow as he is completing 3 days of IV Solu-Medrol therapy. His overall prognosis at this time remains guarded. We will continue close neurological follow-up with the patient during this admission. Objective - Vital Signs Vital signs: Vital Signs Temp 98.0 F 01/30/18 16:16 Pulse 65 01/30/18 16:16 Resp 16 01/30/18 16:16 BP 100/59 01/30/18 16:16 Pulse Ox 97 01/30/18 16:16 Intake & Output 01/30/18 01/30/18 01/31/18 06:59 18:59 06:59 Intake Total 1200 Balance 1200 Intake: Oral 1200 Other: # Voids 1 1 # Bowel Movements 1 - Exam Physical examination: PHYSICAL EXAMINATION: Patient is resting comfortably in bed. VITAL SIGNS: Blood pressure is [100/59]. Heart rate is [65]. Respiration is [16] . Temperature is [98.0]. HEENT: Head is atraumatic, neck is supple, there were no carotid bruits. CHEST: Lungs are clear to auscultation and percussion. CARDIAC: S1, S2 normal rate and rhythm. There is no murmur. ABDOMEN: Soft and nontender. Bowel sounds are present. EXTREMITIES: There is no pedal edema. Peripheral pulses are present. Neurological examination: Patient's neurological examination is unchanged from yesterday. Patient notes slight improvement in his optic neuritis involving the left eye today. - Labs CBC & Chem 7: 01/30/18 06:40 01/30/18 06:40 Labs: Abnormal Lab Results - Last 24 Hours (Table) 01/30/18 01/30/18 01/30/18 Range/Units 06:40 06:40 06:48 WBC 20.9 H (3.8-10.6) k/uL Neutrophils # 19.1 H (1.3-7.7) k/uL Glucose 131 H (74-99) mg/dL POC Glucose (mg/dL) 157 H (75-99) mg/dL Alkaline Phosphatase 37 L (38-126) U/L 01/30/18 01/30/18 01/30/18 Range/Units 11:52 16:55 20:14 WBC (3.8-10.6) k/uL Neutrophils # (1.3-7.7) k/uL Glucose (74-99) mg/dL POC Glucose (mg/dL) 150 H 123 H 214 H (75-99) mg/dL Alkaline Phosphatase (38-126) U/L Assessment and Plan (1) Optic neuritis Current Visit: No Status: Acute Code(s): H46.9 - UNSPECIFIED OPTIC NEURITIS SNOMED Code(s): 02562586 Plan: This patient is a 43-year-old right-handed white male who was admitted to hospital for treatment of acute optic neuritis involving both eyes. Patient has a history of recurrent optic neuritis over the last several years. This is his second episode of optic neuritis this year. We are recommending he should be placed on IV Solu-Medrol 250 mg IV piggyback every 6 hours. He will require 3 days of intense therapy with the steroid. He has responded well in the past to this treatment option. Patient states he has been evaluated by Dr. Marte earlier today. The patient did complain of eye pain and retro-orbital eye pain left greater than right related to the optic neuritis. Dr. Marte is recommended IV Solu-Medrol therapy for this patient. His neurological examination at this time is nonfocal. We have recommended 3 days of IV Solu- Medrol therapy and then a discharge plan to include follow-up in the neuro- ophthalmology clinic in [place]. The patient will be completing 3 days of IV Solu-Medrol therapy tomorrow. As long as he continues to show improvement he may be considered for discharge home tomorrow. The patient has noticed slight improvement with the vision in his left eye today. Hopefully he will continue to notice ongoing improvement even after discharge home. The patient otherwise seems to be doing fairly well. We will continue close neurological follow-up for the patient during this admission. Once again we have recommended that he should follow-up in the neuro-ophthalmology clinic soon after discharge. His overall prognosis at this time remains very guarded. We will continue close neurological follow-up with the patient during this admission.
[2018-01-30 23:34] VITALS: TEMP 97.8
[2018-01-31] MEDS: HYDROmorphone 1 MG/ML 1 ML SYRINGE IVP PRN ×3 (00:20→11:33)
[2018-01-31] MEDS: SODIUM CHLORIDE 0.9% 1,000 ML IV SCH ×2 (01:10→12:13)
[2018-01-31 07:25] LABS: Glucose,Whole Blood 132 mg/dL (75-99)
[2018-01-31] MEDS: methylPREDNISolone SOD SUCCI 250 MG in SODIUM CHLORIDE 0.9% 100 ML IVPB SCH (07:44)
[2018-01-31] MEDS: INSULIN ASPART 100 UNIT/ML 1 ML 10 ML VIAL SQ SCH ×2 (07:44→12:39)
[2018-01-31] MEDS: NICOTINE 14MG/24HR PATCH TRANSDERM SCH (07:45)
[2018-01-31] MEDS: ASCORBIC ACID 500 MG TAB PO SCH (07:45)
[2018-01-31] MEDS: HEPARIN SODIUM,PORCINE 5,000 UNIT/ML 1 ML VIAL SQ SCH (07:45)
[2018-01-31] MEDS: PANTOPRAZOLE 40 MG/10 ML VIAL IV SCH (07:45)
[2018-01-31] MEDS: TAMSULOSIN 0.4 MG CAP.ER.24H PO SCH (07:45)
[2018-01-31] MEDS: HYDROcodone/APAP 5-325MG 1 EACH TAB PO PRN (07:46)
[2018-01-31 09:25] LABS: Basophils % (A) 0 %; Eosinophils % (A) 0 %; HCT 36.6 % (39.0-53.0); HGB 12.4 gm/dL (13.0-17.5); Lymphocytes # (A) 1.2 k/uL (1.0-4.8); Lymphocytes % (A) 8 %; MCH 29.5 pg (25.0-35.0); MCHC 33.8 g/dL (31.0-37.0); MCV 87.3 fL (80.0-100.0); Mean Platelet Volume 6.9; Monocytes # (A) 0.4 k/uL (0-1.0); Monocytes % (A) 2 %; Neutrophils # (A) 14.4 k/uL (1.3-7.7); Neutrophils % (A) 89 %; Platelet Count 262 k/uL (150-450); RBC 4.19 m/uL (4.30-5.90); RDW 13.6 % (11.5-15.5); WBC 16.1 k/uL (3.8-10.6)
[2018-01-31 09:44] LABS: ALT 30 U/L (21-72); AST 15 U/L (17-59); Albumin 3.2 g/dL (3.5-5.0); Alkaline Phosphatase 32 U/L (38-126); Anion Gap 8 mmol/L; Blood Urea Nitrogen 12 mg/dL (9-20); Calcium 8.8 mg/dL (8.4-10.2); Carbon Dioxide 27 mmol/L (22-30); Chloride 103 mmol/L (98-107); Glucose 160 mg/dL (74-99); Potassium 3.6 mmol/L (3.5-5.1); Sodium 138 mmol/L (137-145); Total Bilirubin 0.3 mg/dL (0.2-1.3); Total Protein 5.7 g/dL (6.3-8.2)
--- NOTE | 2018-01-31 12:23 | P.DS ---
Providers Date of admission: 01/28/18 13:33 Expected date of discharge: 01/31/18 Attending physician: Luke Garcia Consults: 01/28/18 13:34 Consult Physician Stat Consulting Provider: Mindy Smyth Consult Reason/Comments: optic neuritis Do you want consulting provider notified?: Yes 01/28/18 15:26 Consult Physician Stat Consulting Provider: Vikas Marte Consult Reason/Comments: optic neuritis Do you want consulting provider notified?: Yes Primary care physician: Luke Garcia [facility] Course: Discharge summary 1. 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 Place patient on Solu- Medrol 250 mg IV every 6 hours. Consult neurology and ophthalmology. For pain control we'll place patient on IV Dilaudid 1 mg every 4 hours as needed for pain and [place] 5/325 every 6 hours as needed for pain. Also will place patient on insulin sliding scale while on IV steroids. Patient has been cleared for discharge from neurology and ophthalmology standpoint will follow up outpatient. Both neurology and ophthalmology recommend patient following up with neurology client experience manager in [place]. Patient will be discharged home on steroid taper. Patient also will be discharged home on [place] for pain control 2. History of a possible enlarged prostate continue Flomax 3. History of DVT of the leg several years ago completed anticoagulation treatment 4. Nicotine dependence: Patient has currently quit tobacco use and is using nicotine patches. We'll resume his nicotine patch 14 mg daily. Patient will be discharged home and nicotine patch 5. History of diverticulitis, colitis and bowel perforation requiring multiple bowel resections with colostomy and reversal of colostomy 6. Patient uses daily medical marijuana for his chronic eye pain Hospital course This is a 43-year-old male with a known past medical history of neuromyelitis optica, treated DVT of the lower extremity, GERD, pneumonia, BPH and multiple bowel resections due to perforation and colostomy with reversal. Patient presents to the hospital with complaints of stabbing like pain behind the eyes as well as blurry vision for the past 3 days. He was seen by both his client experience manager and neurologist as they recommended the patient go to the emergency room for steroid treatment. Patient has been started on IV Solu- Medrol 250 mg IV every 6 hours. Both neurology and ophthalmology have been placed on consult. Patient has required hospitalization in the past for steroids to treat his neuromyelitis optica. Patient denies any chest pain or shortness of breath. Denies any nausea or vomiting. Denies any bowel movement changes he does have chronic diarrhea due to his multiple bowel surgeries. Denies any burning with urination. Denies any numbness or tingling in the extremities. He is complaining of a slight rash around his neck that has been there for 2 months in which he'll be seeing dermatology in the out patient setting. On 01/29/2018 patient is alert and oriented 3 in no apparent distress he is complaining of pain around both eyes he is also complaining of mild blurriness in his vision otherwise he denies any complaints there is no fever or chills no headache or dizziness no chest pain no shortness of breath no cough no nausea or vomiting no abdominal pain no diarrhea and no urinary symptoms. On 01/30/2018 patient was seen and examined he is alert and oriented 3 in no apparent distress still complaining of pain and discomfort around both eyes and some blurriness in his vision otherwise he denies any complaints there is no fever or chills no headache or dizziness no chest pain no shortness of breath no cough no nausea or vomiting no abdominal pain no diarrhea and no urinary symptoms On 01/31/2018 patient is alert and oriented 3. Patient states vision has cleared and is but is still having mild pain. Patient has completed 3 days of IV Solu-Medrol. Patient will be discharged home on prednisone taper. Patient to follow-up with neurology and ophthalmology services. Recommend patient following with neuro-client experience manager in [place] for further workup. This time patient denies chest pain or shortness breath. Patient denies nausea vomiting diarrhea. Patient denies any urinary burning or frequency. I performed an examination of the patient and discussed their management with the Nurse Practitioner. I have reviewed the Nurse Practitioner's notes and agree with the documented findings and plan of care Patient Condition at Discharge: Stable Plan - Discharge Summary Discharge Rx Participant: Yes New Discharge Prescriptions: New HYDROcodone/APAP 5-325MG [[place] 5-325] 1 each PO Q6HR PRN 3 Days #12 tab PRN Reason: Pain Nicotine 14Mg/24Hr Patch [Habitrol] 1 patch TRANSDERM DAILY 30 Days #30 patch predniSONE 10 mg PO DIRECTED #30 tab Continue Tamsulosin [Flomax] 0.4 mg PO BID Ferrous Sulfate [Iron (65 MG Elemental)] 325 mg PO HS Ergocalciferol (Vitamin D2) [Vitamin D2] 50,000 unit PO FR Fluticasone Nasal [place] [Flonase Nasal [place]] 1 spray EA NOSTRIL DAILY PRN PRN Reason: Allergy Symptoms Loratadine [Claritin] 10 mg PO DAILY PRN PRN Reason: Allergy Symptoms Ascorbic Acid [Vitamin C] 500 mg PO DAILY Discharge Medication List Ergocalciferol (Vitamin D2) [Vitamin D2] 50,000 unit PO FR 09/27/17 [History] Ferrous Sulfate [Iron (65 MG Elemental)] 325 mg PO HS 09/27/17 [History] Fluticasone Nasal [place] [Flonase Nasal [place]] 1 spray EA NOSTRIL DAILY PRN 09/27 [History] Loratadine [Claritin] 10 mg PO DAILY PRN 09/27/17 [History] Tamsulosin [Flomax] 0.4 mg PO BID 09/27/17 [History] Ascorbic Acid [Vitamin C] 500 mg PO DAILY 01/28/18 [History] HYDROcodone/APAP 5-325MG [[place] 5-325] 1 each PO Q6HR PRN 3 Days #12 tab [Rx] Nicotine 14Mg/24Hr Patch [Habitrol] 1 patch TRANSDERM DAILY 30 Days #30 patch [Rx] predniSONE 10 mg PO DIRECTED #30 tab 01/31/18 [Rx] Follow up Appointment(s)/Referral(s): Sukhjinder Smyth MD [STAFF PHYSICIAN] - 1 Week Vikas Marte MD [STAFF PHYSICIAN] - 1 Week (call to make follow-up appointment with eye doctor) Luke Garcia MD [Primary Care Provider] - 1-2 days Patient Instructions/Handouts: Optic Neuritis (DC) Activity/Diet/Wound Care/Special Instructions: Patient to follow up with neuro-opthalmologist Diet Regular Activity as tolerated Discharge Disposition: HOME SELF-CARE
[2018-01-31 12:36] LABS: Glucose,Whole Blood 125 mg/dL (75-99)
[2018-01-31 13:27] VITALS: BP 112/79; PULSE 90
== END 2018-01-31 13:28 | disposition home or self-care (01) | DRG 60 ==
LOC: EC 11:57 → 4MS4W 13:33
PROVIDERS: ADMIT Internal Medicine; ATTEND Internal Medicine
DX: G36.0 Neuromyelitis optica [Devic] (principal); F32.9 Major depressive disorder, single episode, unspecified; F41.9 Anxiety disorder, unspecified; K21.9 Gastro-esophageal reflux disease without esophagitis; M16.0 Bilateral primary osteoarthritis of hip; M47.9 Spondylosis, unspecified; N40.0 Benign prostatic hyperplasia without lower urinary tract symptoms; K57.90 Diverticulosis of intestine, part unspecified, without perforation or abscess without bleeding; Z79.899 Other long term (current) drug therapy; Z86.718 Personal history of other venous thrombosis and embolism; Z87.01 Personal history of pneumonia (recurrent); Z90.49 Acquired absence of other specified parts of digestive tract; Z88.2 Allergy status to sulfonamides; Z87.891 Personal history of nicotine dependence; Z91.030 Bee allergy status; Z91.041 Radiographic dye allergy status; Z91.013 Allergy to seafood; Z80.8 Family history of malignant neoplasm of other organs or systems; Z82.49 Family history of ischemic heart disease and other diseases of the circulatory system
CPT/HCPCS: 36415; 80048; 80053; 83036; 85025; 85652; 86140; 93005; 96365; 96375; 99284

== ENCOUNTER 2018-04-04 10:25 | Day surgery (SDC) | payer MEDICARE, OTHER ==
[2018-03-30 13:07] VITALS: BMI 25.8
[~2018-04-04 10:25] MED LIST changes: -LACTATED RINGERS 1,000 ML IV SCH; -LIDOCAINE 1% 20 ML VIAL (10MG/ML) FOR IV START INTRADERMA PRN; -MIDAZOLAM 2 MG/2 ML VIAL IV PRN; +SODIUM CHLORIDE 0.9% 1,000 ML IV SCH
[2018-04-04 10:48] VITALS: BP 140/86; PULSE 73; RESP 18; TEMP 97.6
--- NOTE | 2018-04-04 16:18 | P.PCN ---
Preoperative Diagnosis: Diagnosis Recurrent presyncope Syncope Twelve-lead ECG shows sinus rhythm normal VA narrow QRS normal ST segments normal QT interval no epsilon waves no delta waves Tilt table test per protocol Baseline blood pressure 118/87 mmHg pacing are to 67 beats a minute patient was tilted upright at 70 per protocol there was no change in her heart rate and blood pressure and is laid supine at the end of the procedure Impression Normal twelve-lead ECG Normal heart rate and blood pressure response to upright tilting
== END 2018-04-04 12:22 | disposition home or self-care (01) ==
LOC: CATHEP 10:25
PROVIDERS: ATTEND Internal Medicine Clinical Cardiac Electrophysiology
DX: R55 Syncope and collapse (principal); R42 Dizziness and giddiness
CPT/HCPCS: 93660

== ENCOUNTER 2018-12-13 23:02 | Inpatient (IN) | payer MEDICARE ==
[2018-12-13] MEDS ORDERED: PROPARACAINE 0.5% OPHTH DROPS 15 ML BTL BOTH EYES STA (23:35)
[2018-12-14] MEDS ORDERED: SODIUM CHLORIDE 0.9% 1,000 ML IV ONE (00:03)
[2018-12-14] MEDS ORDERED: HYDROmorphone 1 MG/ML 1 ML SYRINGE IVP STA (00:20)
[2018-12-14] MEDS ORDERED: KETOROLAC 30 MG/ML 1 ML VIAL IVP STA (00:20)
[2018-12-14 00:24] LABS: Basophils # (A) 0.1 k/uL (0-0.2); Basophils % (A) 1 %; Eosinophils # (A) 0.6 k/uL (0-0.7); Eosinophils % (A) 6 %; HCT 44.1 % (39.0-53.0); HGB 14.8 gm/dL (13.0-17.5); Lymphocytes # (A) 3.8 k/uL (1.0-4.8); Lymphocytes % (A) 41 %; MCH 29.5 pg (25.0-35.0); MCHC 33.7 g/dL (31.0-37.0); MCV 87.5 fL (80.0-100.0); Mean Platelet Volume 6.3; Monocytes # (A) 0.4 k/uL (0-1.0); Monocytes % (A) 4 %; Neutrophils # (A) 4.1 k/uL (1.3-7.7); Neutrophils % (A) 45 %; Platelet Count 272 k/uL (150-450); RBC 5.04 m/uL (4.30-5.90); RDW 13.5 % (11.5-15.5); WBC 9.2 k/uL (3.8-10.6)
[2018-12-14 00:34] LABS: ALT 20 U/L (21-72); AST 17 U/L (17-59); African American GFR (CKD) >90 (>60 ml/min/1.73 sqM); Albumin 4.1 g/dL (3.5-5.0); Alkaline Phosphatase 41 U/L (38-126); Anion Gap 9 mmol/L; Blood Urea Nitrogen 13 mg/dL (9-20); Calcium 9.5 mg/dL (8.4-10.2); Carbon Dioxide 24 mmol/L (22-30); Chloride 105 mmol/L (98-107); Glucose 83 mg/dL (74-99); INR 0.9 (<1.2); Partial Thromboplastin Time 26.9 sec (22.0-30.0); Potassium 3.9 mmol/L (3.5-5.1); Prothrombin Time 9.8 sec (9.0-12.0); Sodium 138 mmol/L (137-145); Total Bilirubin 0.2 mg/dL (0.2-1.3); Total Protein 6.7 g/dL (6.3-8.2)
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
[2018-12-14] MEDS ORDERED: ONDANSETRON 4 MG/2 ML VIAL IVP PRN (01:43)
[2018-12-14] MEDS ORDERED: IBUPROFEN 400 MG TAB PO PRN (01:43)
[2018-12-14] MEDS ORDERED: NALOXONE 0.4 MG/ML 1 ML VIAL IV PRN (01:43)
[2018-12-14] MEDS ORDERED: ACETAMINOPHEN TAB 325 MG TAB PO PRN (01:43)
[2018-12-14] MEDS ORDERED: HYDROcodone/APAP 5-325MG 1 EACH TAB PO PRN (01:45)
[2018-12-14] MEDS ORDERED: FLUTICASONE 50MCG/SPRAY NASAL 16GM EA NOSTRIL PRN (01:45)
[2018-12-14] MEDS ORDERED: LORATADINE 10 MG TAB PO PRN (01:45)
[2018-12-14] MEDS ORDERED: PROPARACAINE 0.5% OPHTH DROPS 15 ML BTL BOTH EYES STA (02:06)
[2018-12-14] MEDS: SODIUM CHLORIDE 0.9% 1,000 ML IV SCH ×3 (02:11→20:52)
[2018-12-14] MEDS: HYDROmorphone 1 MG/ML 1 ML SYRINGE IVP PRN ×5 (07:22→22:28)
[2018-12-14] MEDS: HYDROcodone/APAP 5-325MG 1 EACH TAB PO PRN ×2 (09:44→20:51)
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
[2018-12-14] MEDS: TAMSULOSIN 0.4 MG CAP.ER.24H PO SCH ×2 (09:45→20:00)
[2018-12-14] MEDS: ASCORBIC ACID 500 MG TAB PO SCH (09:45)
[2018-12-14] MEDS: NICOTINE 7MG/24HR PATCH TRANSDERM SCH (09:45)
[2018-12-14 11:59] LABS: Glucose,Whole Blood 187 mg/dL (75-99)
[2018-12-14] MEDS: INSULIN ASPART (NovoLOG) 100 UNIT/ML VIAL SQ SCH ×3 (12:20→20:51)
[2018-12-14] MEDS ORDERED: diphenhydrAMINE 25 MG CAP PO PRN (12:42)
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
[2018-12-14 17:23] LABS: Glucose,Whole Blood 121 mg/dL (75-99)
[2018-12-14] MEDS: FERROUS SULFATE 325 MG TAB PO SCH (20:00)
--- NOTE | 2018-12-14 20:01 | MR ---
EXAMINATION TYPE: MR cspine/tspine/lspine wo/w DATE OF EXAM: 12/14/2018 COMPARISON: None HISTORY: Recurrent optic neuritis with concerns for NMO, Weakness/numbness in extremities CONTRAST: Performed utilizing 7.5 mL intravenous Gadavist gadolinium contrast. TECHNIQUE: Multiplanar multiecho imaging on a 3.0 Whit magnet is performed through the cervical spin e. FINDINGS: The craniovertebral junction is normal. Vertebral body alignment is normal. Disc desiccation is through the cervical spine. There is loss of disc height C5-6. Spinal cord mainta ins normal signal throughout visualized course. No spinal canal stenosis is present. 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 No posterior wall displacement is evident. C6-7: Central disc bulge is present without cord contact. No spinal canal stenosis or neural foraminal stenosis is present. IMPRESSIONS: 1. 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 2. Disc bulging C6-7 with mild intrathecal sac impression. 3. No spinal canal stenosis. 2. No suspicious signal abnormality within the spinal cord EXAMINATION TYPE: MR cspine/tspine/lspine wo/w DATE OF EXAM: 12/14/2018 COMPARISON: None HISTORY: Recurrent optic neuritis with concerns for NMO, Weakness/numbness in extremities CONTRAST: Performed utilizing 7.5 mL intravenous Gadavist gadolinium contrast. TECHNIQUE: Multiplanar, multiecho imaging on a 3.0 Whit magnet is performed through the thoracic spi ne. Spinal cord maintains normal signal through its visualized course. Vertebral body alignment is normal. Vertebral body heights are preserved. Disc heights are preserved. T4-T5: There is broad-based disc bulge. This may be slightly greater into the left paracentral canal. No AP spinal canal stenosis present. Cord contact is present. T5-6: There is a central disc herniation. This is moderate anterior thecal sac compression and cord c ontact. No AP spinal canal stenosis is present. T7-T8: Broad-based disc bulge is moderate intrathecal sac compression. This has cord contact. No AP s mikki canal stenosis is present. Neural foramen are patent. T9-T10: There is right paracentral disc bulge with mild intrathecal sac compression. No AP spinal can al stenosis cord contact or neural foraminal narrowing is present. T10-T11: There is left paracentral disc bulge with moderate intrathecal sac compression. This comes i n close approximation with the spinal cord. Cord deformity is not evident. No spinal canal stenosis i s present. No suspicious enhancement is evident. Spinal cord appears unremarkable. IMPRESSIONS: 1. Multilevel disc bulges through the thoracic spine. This appears greatest at T7-T8 with cord contac t and T4-T5 with cord contact. 2. Focal disc herniation centrally at T5-T6 with moderate thecal sac compression and cord contact. EXAMINATION TYPE: MR cspine/tspine/lspine wo/w DATE OF EXAM: 12/14/2018 COMPARISON: None HISTORY: Recurrent optic neuritis with concerns for NMO, Weakness/numbness in extremities CONTRAST: 7.5 mL intravenous Gadavist. TECHNIQUE: Multiplanar, multisequence images of the lumbar spine were acquired. FINDINGS: Disc heights are preserved. Disc desiccation is throughout the lumbar spine. L4-5: There is a large left paracentral disc herniation with significant anterior thecal sac compress ion. Left foraminal stenosis is likely present. Clinical correlation with the radicular symptoms is r ecommended. L3-4: Mild disc bulge is intrathecal sac contact. No spinal canal stenosis or neural foraminal stenos is is present. L2-L3: There is a small left paracentral disc radiation with mild intrathecal sac compression. No spi nal canal stenosis or neural foraminal stenosis present. L1-L2:There is a small left paracentral disc radiation with mild intrathecal sac compression. No spin al canal stenosis or neural foraminal stenosis present. This may be slightly less than at the L2-3 le alan. No suspicious enhancement is evident. Cord terminates at the L1 level. IMPRESSION: 1. Large left paracentral disc herniation L4-5 with significant anterior thecal sac impression. Corre late with left L5 radicular symptoms.
[2018-12-14 20:36] LABS: Glucose,Whole Blood 144 mg/dL (75-99)
[2018-12-15] MEDS: HYDROmorphone 1 MG/ML 1 ML SYRINGE IVP PRN ×6 (03:41→23:16)
[2018-12-15] MEDS: NICOTINE 7MG/24HR PATCH TRANSDERM SCH (04:27)
[2018-12-15] MEDS: SODIUM CHLORIDE 0.9% 1,000 ML IV SCH ×2 (05:23→16:42)
[2018-12-15 07:06] LABS: Glucose,Whole Blood 137 mg/dL (75-99)
[2018-12-15] MEDS: FAMOTIDINE 20 MG TAB PO SCH (07:06)
[2018-12-15] MEDS: INSULIN ASPART (NovoLOG) 100 UNIT/ML VIAL SQ SCH ×4 (07:06→21:05)
[2018-12-15] MEDS: ENOXAPARIN 40 MG/0.4 ML SYRINGE SQ SCH (07:06)
[2018-12-15] MEDS: TAMSULOSIN 0.4 MG CAP.ER.24H PO SCH ×2 (07:06→19:51)
[2018-12-15] MEDS: ASCORBIC ACID 500 MG TAB PO SCH (07:06)
[2018-12-15 08:32] LABS: ALT 24 U/L (21-72); AST 18 U/L (17-59); African American GFR (CKD) >90 (>60 ml/min/1.73 sqM); Alkaline Phosphatase 44 U/L (38-126); Anion Gap 8 mmol/L; Blood Urea Nitrogen 10 mg/dL (9-20); Calcium 9.4 mg/dL (8.4-10.2); Carbon Dioxide 26 mmol/L (22-30); Chloride 104 mmol/L (98-107); Glucose 147 mg/dL (74-99); Potassium 3.9 mmol/L (3.5-5.1); Sodium 138 mmol/L (137-145); Total Bilirubin 0.4 mg/dL (0.2-1.3); Total Protein 6.6 g/dL (6.3-8.2)
[2018-12-15 09:00] LABS: Basophils % (A) 0 %; Eosinophils % (A) 0 %; HCT 43.8 % (39.0-53.0); HGB 14.6 gm/dL (13.0-17.5); Lymphocytes # (A) 1.1 k/uL (1.0-4.8); Lymphocytes % (A) 7 %; MCHC 33.3 g/dL (31.0-37.0); MCV 87.1 fL (80.0-100.0); Mean Platelet Volume 7.4; Monocytes # (A) 0.2 k/uL (0-1.0); Monocytes % (A) 1 %; Neutrophils % (A) 91 %; Platelet Count 280 k/uL (150-450); RBC 5.03 m/uL (4.30-5.90); WBC 16.4 k/uL (3.8-10.6)
--- NOTE | 2018-12-15 10:31 | P.PN ---
Subjective Progress Note Date: 12/15/18 This is a 43-year-old male patient who presented with complaints of bilateral eye pain and blurry vision for the past 2 days likely associated with his known optic neuritis flareup. Patient reports he has known history of left optic nerve damage in which she experiences optic neuritis. Patient reports last flareup was in January. Patient reports he has been seen by multiple providers for this issue including Dr. Ayers and a specialist out of [facility]. Additional medical history includes DVT, GERD, memory impairment, musculoskeletal disorder, osteoarthritis, pneumonia, prostate disorder, anxiety and depression. Patient has been started on Solu-Medrol 250 every 8 hours neurology services have been consulted. At this time patient denies chest pain or shortness of breath. Patient denies nausea vomiting or diarrhea. Patient denies any urinary burning or frequency. On 12/15/2018 patient is alert and oriented 3. Patient reports some improvement with blurry vision. Patient also in reports improvement with IV pain. Patient remains on IV steroids neurology services are following. At this time patient denies chest pain or shortness of breath. Patient denies nausea vomiting or diarrhea. Patient denies any urinary burning or frequency. Objective - Vital Signs Vital signs: Vital Signs Temp 98.1 F 12/15/18 04:00 Pulse 81 12/15/18 04:00 Resp 18 12/15/18 04:00 BP 112/71 12/15/18 04:00 Pulse Ox 96 12/15/18 04:00 Intake & Output 12/14/18 12/15/18 12/15/18 18:59 06:59 18:59 Intake Total 300 Balance 300 Intake: Oral 300 Other: Voiding Method Toilet # Voids 1 1 # Bowel Movements 1 - Exam Head normocephalic. Blurred peripheral vision noted to bilateral eyes Neck supple Lungs clear to auscultation bilaterally no wheezing or crackles Heart regular rate and rhythm S1-S2, no rub or gallop Abdomen is soft nontender nondistended positive bowel sounds no hepatosplenomegaly Extremities no edema Neuro alert and orientated to 3 - Labs CBC & Chem 7: 12/15/18 07:45 12/15/18 07:45 Labs: Abnormal Lab Results - Last 24 Hours (Table) 12/14/18 12/14/18 12/14/18 Range/Units 11:58 17:22 20:31 WBC (3.8-10.6) k/uL Neutrophils # (1.3-7.7) k/uL Creatinine (0.66-1.25) mg/dL Glucose (74-99) mg/dL POC Glucose (mg/dL) 187 H 121 H 144 H (75-99) mg/dL 12/15/18 12/15/18 12/15/18 Range/Units 07:00 07:45 07:45 WBC 16.4 H (3.8-10.6) k/uL Neutrophils # 15.0 H (1.3-7.7) k/uL Creatinine 0.62 L (0.66-1.25) mg/dL Glucose 147 H (74-99) mg/dL POC Glucose (mg/dL) 137 H (75-99) mg/dL Assessment and Plan Assessment: 1. Blurred vision and bilateral eye pain related to optic neuritis flareup. Patient started on Solu-Medrol 250 every 8 hours. Neurology services have been consulted. MRI has been ordered per neurology services 2. History of neuromyelitis optic of both eyes. Patient reports he's has followed with multiple specialist without significant improvement 3. History of enlarged prostate continue Flomax 4. History of DVT of the leg several years ago completed anticoagulation treatment 5. History of diverticulitis cleansed bowel perforation requiring multiple bowel resections with colostomy reversal colostomy 6. Nicotine dependence. Patient educated treatment patient shorter 7. History of GERD 8. History of anxiety and depression DVT prophylaxis Lovenox. GI prophylaxis Pepcid I performed an examination of the patient and discussed their management with the Nurse Practitioner. I have reviewed the Nurse Practitioner's notes and agree with the documented findings and plan of care
[2018-12-15 11:39] VITALS: BMI 24.3
--- NOTE | 2018-12-15 11:40 | P.PN ---
Subjective Progress Note Date: 12/15/18 Principal diagnosis: Recurrent optic neuritis OU Eyes starting to feel better. MRI C/T/L spine yesterday. No new neuro c/o. Objective - Vital Signs Vital signs: Vital Signs Temp 98.1 F 12/15/18 04:00 Pulse 81 12/15/18 04:00 Resp 18 12/15/18 04:00 BP 112/71 12/15/18 04:00 Pulse Ox 96 12/15/18 04:00 Intake & Output 12/14/18 12/15/18 12/15/18 18:59 06:59 18:59 Intake Total 300 Balance 300 Intake: Oral 300 Other: Voiding Method Toilet # Voids 1 1 1 # Bowel Movements 1 - Exam Gen NAD Pleasant and cooperative MS A+Ox4 Normal fluency Able to follow all commands CN PERRL Decreased blink to threat on the left He has APD OS EOMI no nystagmus or FLORES No facial asymmetry Masseter's symmetric Hearing intact to normal voice bilaterally Speech not dysarthric Equal elevation of palate Tongue midline Sym shrug and SCM bilaterally Motor Normal bulk/tone No pronator or tremors Strength 5/5 sym throughout Sens Intact to LT x4 No neglect +Lhermitte's Coord No dysmetria on FTN bilaterally DTRs 2+/4 sym throughout Toes downgoing bilaterally No clonus at achilles Gait Deferred - Labs CBC & Chem 7: 12/15/18 07:45 12/15/18 07:45 Labs: Abnormal Lab Results - Last 24 Hours (Table) 12/14/18 12/14/18 12/14/18 Range/Units 11:58 17:22 20:31 WBC (3.8-10.6) k/uL Neutrophils # (1.3-7.7) k/uL Creatinine (0.66-1.25) mg/dL Glucose (74-99) mg/dL POC Glucose (mg/dL) 187 H 121 H 144 H (75-99) mg/dL 12/15/18 12/15/18 12/15/18 Range/Units 07:00 07:45 07:45 WBC 16.4 H (3.8-10.6) k/uL Neutrophils # 15.0 H (1.3-7.7) k/uL Creatinine 0.62 L (0.66-1.25) mg/dL Glucose 147 H (74-99) mg/dL POC Glucose (mg/dL) 137 H (75-99) mg/dL - Imaging and Cardiology MRI cervical, thoracic and lumbar spine w wo tray 12/15/18. 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 Disc bulging C6 to C7 with mild intrathecal sac compression. No spinal canal stenosis. No suspicious signal abnormality within the spinal cord. Multilevel disc bulges throughout the thoracic spine, greatest at T7-T8 with cord contact at that level and also at T4-T5 but without terrence cord compression. Large left paracentral disc herniation at L4 to L5 with significant anterior thecal sac compression. I have reviewed neuroimages myself. 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 MRI moralez-spine does not reveal intramedullary lesions to support NMO. His eye symptoms are improving with pulse glucocorticoid. Plan: -Solu-Medrol 250mg IV q6h x 3 days. Today is D#2. -Insulin SS -GI prophylaxis -Sleep aid prn -Anti-NMO IgG Ab sent; it will take days to come back and needs to followed up as outpatient -MRI C/T/L spine results d/w patient in detail -He will need to follow up with an MS specialist. Explained to patient that MS specialist sees all demyelinating disorders and not just MS, and recurrent optic neuritis and NMO spectrum disorders would fall under this subspecialty. I think he would be best served in an academic medical center. Patient states he has al ready been to [facility] and [facility]. I would recommend the [facility] where they do have an MS Center with MS specialists and neuroophthalmologists -d/w patient in detail. All questions answered -Patient may be discharged after he finishes his 3rd day of Solu-Medrol. Thank you again for this consultation. Please call with ?. Time with Patient: Less than 30 (Time spent in direct patient care, greater than 50% of which was spent in [id number] counseling coordination of care: 25 minutes)
[2018-12-15 12:20] LABS: Glucose,Whole Blood 134 mg/dL (75-99)
[2018-12-15] MEDS: HYDROcodone/APAP 5-325MG 1 EACH TAB PO PRN ×2 (14:33→21:36)
[2018-12-15 17:07] LABS: Glucose,Whole Blood 131 mg/dL (75-99)
[2018-12-15] MEDS: FERROUS SULFATE 325 MG TAB PO SCH (19:50)
[2018-12-15 20:45] LABS: Glucose,Whole Blood 142 mg/dL (75-99)
[2018-12-16] MEDS: SODIUM CHLORIDE 0.9% 1,000 ML IV SCH ×3 (02:00→20:13)
[2018-12-16] MEDS: HYDROmorphone 1 MG/ML 1 ML SYRINGE IVP PRN ×5 (02:42→20:10)
[2018-12-16] MEDS: NICOTINE 7MG/24HR PATCH TRANSDERM SCH (05:43)
[2018-12-16 07:18] LABS: Glucose,Whole Blood 135 mg/dL (75-99)
[2018-12-16] MEDS: INSULIN ASPART (NovoLOG) 100 UNIT/ML VIAL SQ SCH ×4 (07:45→21:05)
[2018-12-16] MEDS: FAMOTIDINE 20 MG TAB PO SCH (07:46)
[2018-12-16] MEDS: HYDROcodone/APAP 5-325MG 1 EACH TAB PO PRN ×2 (07:46→17:39)
[2018-12-16] MEDS: ASCORBIC ACID 500 MG TAB PO SCH (07:46)
[2018-12-16] MEDS: TAMSULOSIN 0.4 MG CAP.ER.24H PO SCH ×2 (07:46→20:10)
[2018-12-16] MEDS: ENOXAPARIN 40 MG/0.4 ML SYRINGE SQ SCH (07:47)
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
[2018-12-16] MEDS ORDERED: ERGOCALCIFEROL 50,000 UNIT CAP PO SCH (09:00)
[2018-12-16 09:12] LABS: Basophils % (A) 0 %; Eosinophils % (A) 0 %; HCT 41.1 % (39.0-53.0); HGB 13.6 gm/dL (13.0-17.5); Lymphocytes # (A) 0.7 k/uL (1.0-4.8); Lymphocytes % (A) 4 %; MCH 29.4 pg (25.0-35.0); MCHC 33.2 g/dL (31.0-37.0); MCV 88.5 fL (80.0-100.0); Mean Platelet Volume 7.3; Monocytes # (A) 0.2 k/uL (0-1.0); Monocytes % (A) 1 %; Neutrophils # (A) 16.3 k/uL (1.3-7.7); Neutrophils % (A) 95 %; Platelet Count 247 k/uL (150-450); RBC 4.65 m/uL (4.30-5.90); RDW 14.4 % (11.5-15.5); WBC 17.2 k/uL (3.8-10.6)
[2018-12-16 09:23] LABS: ALT 20 U/L (21-72); AST 15 U/L (17-59); African American GFR (CKD) >90 (>60 ml/min/1.73 sqM); Albumin 3.7 g/dL (3.5-5.0); Alkaline Phosphatase 40 U/L (38-126); Anion Gap 8 mmol/L; Blood Urea Nitrogen 11 mg/dL (9-20); Calcium 9.1 mg/dL (8.4-10.2); Carbon Dioxide 28 mmol/L (22-30); Chloride 101 mmol/L (98-107); Glucose 169 mg/dL (74-99); Potassium 3.8 mmol/L (3.5-5.1); Sodium 137 mmol/L (137-145); Total Bilirubin 0.3 mg/dL (0.2-1.3); Total Protein 5.9 g/dL (6.3-8.2)
--- NOTE | 2018-12-16 11:03 | P.PN ---
Subjective Progress Note Date: 12/16/18 Principal diagnosis: Recurrent optic neuritis OU Eye pain continues to subside with improved vision especially OS. Getting his last day of Solu-Medrol. Ortho consult. No new neuro c/o. Objective - Vital Signs Vital signs: Vital Signs Temp 98 F 12/16/18 04:55 Pulse 53 L 12/16/18 04:55 Resp 18 12/16/18 04:55 BP 105/68 12/16/18 04:55 Pulse Ox 95 12/16/18 04:55 Intake & Output 12/15/18 12/16/18 12/16/18 18:59 06:59 18:59 Intake Total 200 Balance 200 Weight 77.111 kg Intake: Oral 200 Other: # Voids 2 1 - Exam Gen NAD Pleasant and cooperative MS A+Ox4 Normal fluency Able to follow all commands CN PERRL Decreased blink to threat on the left He has APD OS EOMI no nystagmus or FLORES No facial asymmetry Masseter's symmetric Hearing intact to normal voice bilaterally Speech not dysarthric Equal elevation of palate Tongue midline Sym shrug and SCM bilaterally Motor Normal bulk/tone No pronator or tremors Strength 5/5 sym throughout Sens Intact to LT x4 No neglect +Lhermitte's Coord No dysmetria on FTN bilaterally DTRs 2+/4 sym throughout Toes downgoing bilaterally No clonus at achilles Gait Deferred - Labs CBC & Chem 7: 12/16/18 08:15 12/16/18 08:15 Labs: Abnormal Lab Results - Last 24 Hours (Table) 12/15/18 12/15/18 12/15/18 Range/Units 11:57 16:56 20:35 WBC (3.8-10.6) k/uL Neutrophils # (1.3-7.7) k/uL Lymphocytes # (1.0-4.8) k/uL Creatinine (0.66-1.25) mg/dL Glucose (74-99) mg/dL POC Glucose (mg/dL) 134 H 131 H 142 H (75-99) mg/dL AST (17-59) U/L ALT (21-72) U/L Total Protein (6.3-8.2) g/dL 12/16/18 12/16/18 12/16/18 Range/Units 07:17 08:15 08:15 WBC 17.2 H (3.8-10.6) k/uL Neutrophils # 16.3 H (1.3-7.7) k/uL Lymphocytes # 0.7 L (1.0-4.8) k/uL Creatinine 0.60 L (0.66-1.25) mg/dL Glucose 169 H (74-99) mg/dL POC Glucose (mg/dL) 135 H (75-99) mg/dL AST 15 L (17-59) U/L ALT 20 L (21-72) U/L Total Protein 5.9 L (6.3-8.2) g/dL Assessment and Plan Assessment: 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 MRI moralez-spine does not reveal intramedullary lesions to support NMO. His eye symptoms continue to improve with pulse glucocorticoid. Plan: -Solu-Medrol 250mg IV q6h x 3 days. Today is D#3. -Insulin SS -GI prophylaxis -Sleep aid prn -Anti-NMO IgG Ab sent. This will need to be followed up as outpatient -MRI C/T/L spine does not show intramedullary lesions c/w NMO -He will need to follow up with an MS specialist. Explained to patient that MS specialist sees all demyelinating disorders and not just MS, and recurrent optic neuritis and NMO spectrum disorders would fall under this subspecialty. I think he would be best served in an academic medical center. Patient states he has already been to [facility] and [facility]. I would recommend the [facility] where they do have an MS Center with MS specialists and neuroophthalmologists. He should make sure his previous neuro records are sent to [facility] prior to his first appointment -d/w patient in detail. All questions answered -Patient may be discharged after he finishes his last dose from Solu-Medrol tod ay from a neuro perpsective. Thank you again for this consultation. Please call with ?. Time with Patient: Less than 30 (Time spent in direct patient care, greater than 50% of which was spent in [id number] counseling and coordination of care: 25 minutes)
[2018-12-16 11:52] LABS: Glucose,Whole Blood 130 mg/dL (75-99)
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
--- NOTE | 2018-12-16 12:54 | P.PN ---
Subjective Progress Note Date: 12/16/18 This is a 43-year-old male patient who presented with complaints of bilateral eye pain and blurry vision for the past 2 days likely associated with his known optic neuritis flareup. Patient reports he has known history of left optic nerve damage in which she experiences optic neuritis. Patient reports last flareup was in January. Patient reports he has been seen by multiple providers for this issue including Dr. Ayers and a specialist out of [facility]. Additional medical history includes DVT, GERD, memory impairment, musculoskeletal disorder, osteoarthritis, pneumonia, prostate disorder, anxiety and depression. Patient has been started on Solu-Medrol 250 every 8 hours neurology services have been consulted. At this time patient denies chest pain or shortness of breath. Patient denies nausea vomiting or diarrhea. Patient denies any urinary burning or frequency. On 12/15/2018 patient is alert and oriented 3. Patient reports some improvement with blurry vision. Patient also in reports improvement with IV pain. Patient remains on IV steroids neurology services are following. At this time patient denies chest pain or shortness of breath. Patient denies nausea vomiting or diarrhea. Patient denies any urinary burning or frequency. 12/16/2018 studies patient's last day of IV steroids. Initiated and around midnight tonight. Patient is reporting improvement in his eye pain as well as blurry vision. Neurology has cleared him after he receives his last dose of IV steroids. Patient was seen by Dr. Whittaker and pain service. Pain services recommending that patient follows up in the pain clinic for epidural injections. They've also recommended to increase the Neurontin to 100 mg in the morning 100 mg every p.m. and 200 mg at bedtime. Patient denies any chest pain or shortness breath. Denies any nausea or vomiting. Denies any bowel changes or urinary symptoms Objective - Vital Signs Vital signs: Vital Signs Temp 98 F 12/16/18 04:55 Pulse 53 L 12/16/18 04:55 Resp 18 12/16/18 04:55 BP 105/68 12/16/18 04:55 Pulse Ox 95 12/16/18 04:55 Intake & Output 12/15/18 12/16/18 12/16/18 18:59 06:59 18:59 Intake Total 200 Balance 200 Weight 77.111 kg Intake: Oral 200 Other: # Voids 2 1 - Exam Head normocephalic Neck supple Lungs clear to auscultation bilaterally no wheezing or crackles Heart regular rate and rhythm S1-S2, no rub or gallop Abdomen is soft nontender nondistended positive bowel sounds no hepatosplenomegaly Extremities no edema Neuro alert and orientated to 3 - Labs CBC & Chem 7: 12/16/18 08:15 12/16/18 08:15 Labs: Abnormal Lab Results - Last 24 Hours (Table) 12/15/18 12/15/18 12/16/18 Range/Units 16:56 20:35 07:17 WBC (3.8-10.6) k/uL Neutrophils # (1.3-7.7) k/uL Lymphocytes # (1.0-4.8) k/uL Creatinine (0.66-1.25) mg/dL Glucose (74-99) mg/dL POC Glucose (mg/dL) 131 H 142 H 135 H (75-99) mg/dL AST (17-59) U/L ALT (21-72) U/L Total Protein (6.3-8.2) g/dL 12/16/18 12/16/18 12/16/18 Range/Units 08:15 08:15 11:46 WBC 17.2 H (3.8-10.6) k/uL Neutrophils # 16.3 H (1.3-7.7) k/uL Lymphocytes # 0.7 L (1.0-4.8) k/uL Creatinine 0.60 L (0.66-1.25) mg/dL Glucose 169 H (74-99) mg/dL POC Glucose (mg/dL) 130 H (75-99) mg/dL AST 15 L (17-59) U/L ALT 20 L (21-72) U/L Total Protein 5.9 L (6.3-8.2) g/dL Assessment and Plan Assessment: 1. Blurred vision and bilateral eye pain related to optic neuritis flareup. Patient started on Solu-Medrol 250 every 8 hours 3 days. Today is the last day of steroids. Last dose of IV steroids as around midnight tonight. Anticipate discharge tomorrow. Patient cleared by neurology once he has completed the IV steroids. Patient to follow-up with MS specialist and neuro bowling pin refinisher out of [facility] for recurrent optic neuritis. MRI of the spine did not reveal intramedullary lesions to support NMO. 2. History of neuromyelitis optic of both eyes. Patient reports he's has followed with multiple specialist without significant improvement 3. History of enlarged prostate continue Flomax 4. History of DVT of the leg several years ago completed anticoagulation treatment 5. History of diverticulitis cleansed bowel perforation requiring multiple bowel resections with colostomy reversal colostomy 6. Nicotine dependence. Patient educated treatment patient shorter 7. History of GERD 8. History of anxiety and depression 9. Disc herniation of L4-L5 with lower left extremity radiculopathy patient seen by Dr. Whittaker who recommended pain service evaluation. Patient seen by Dr. Mora recommending outpatient epidural injections. Continue [place] 5/325 every 4 hours as needed for pain. Pain services recommending to adjust the Neurontin 100 mg every morning 100mg every evening and 200 mg at bedtime 10. Chronic cervical, thoracic and lumbar pain continue his current pain management DVT prophylaxis Lovenox. GI prophylaxis Pepcid Anticipate discharge home tomorrow after he was completed his full 3 days of IV steroids I performed an examination of the patient and discussed their management with the physician [employer]. I have reviewed the Physician [employer]'s notes and agree with the documented findings and plan of care
[2018-12-16 14:49] VITALS: RESP 16
[2018-12-16] MEDS: GABAPENTIN 100 MG CAP PO SCH ×2 (16:56→20:12)
[2018-12-16 17:13] LABS: Glucose,Whole Blood 210 mg/dL (75-99)
[2018-12-16] MEDS: FERROUS SULFATE 325 MG TAB PO SCH (20:12)
[2018-12-16 21:02] LABS: Glucose,Whole Blood 106 mg/dL (75-99)
[2018-12-17] MEDS: HYDROmorphone 1 MG/ML 1 ML SYRINGE IVP PRN ×3 (04:29→12:04)
[2018-12-17 04:44] VITALS: BP 116/64; PULSE 67; TEMP 97
[2018-12-17] MEDS: HYDROcodone/APAP 5-325MG 1 EACH TAB PO PRN (05:26)
[2018-12-17] MEDS: NICOTINE 7MG/24HR PATCH TRANSDERM SCH (05:36)
[2018-12-17 07:09] LABS: Glucose,Whole Blood 126 mg/dL (75-99)
[2018-12-17 08:00] LABS: ALT 23 U/L (21-72); AST 14 U/L (17-59); African American GFR (CKD) >90 (>60 ml/min/1.73 sqM); Albumin 3.6 g/dL (3.5-5.0); Alkaline Phosphatase 36 U/L (38-126); Anion Gap 8 mmol/L; Blood Urea Nitrogen 12 mg/dL (9-20); Carbon Dioxide 31 mmol/L (22-30); Chloride 100 mmol/L (98-107); Glucose 128 mg/dL (74-99); Potassium 3.6 mmol/L (3.5-5.1); Sodium 139 mmol/L (137-145); Total Bilirubin 0.4 mg/dL (0.2-1.3); Total Protein 6.1 g/dL (6.3-8.2)
[2018-12-17 08:01] LABS: Basophils % (A) 0 %; Eosinophils % (A) 0 %; HGB 14.6 gm/dL (13.0-17.5); Lymphocytes % (A) 6 %; MCH 29.4 pg (25.0-35.0); MCHC 33.9 g/dL (31.0-37.0); MCV 86.8 fL (80.0-100.0); Mean Platelet Volume 7.1; Monocytes # (A) 0.4 k/uL (0-1.0); Monocytes % (A) 3 %; Neutrophils # (A) 14.8 k/uL (1.3-7.7); Neutrophils % (A) 91 %; Platelet Count 244 k/uL (150-450); RBC 4.95 m/uL (4.30-5.90); RDW 15.1 % (11.5-15.5); WBC 16.3 k/uL (3.8-10.6)
[2018-12-17] MEDS: GABAPENTIN 100 MG CAP PO SCH (08:19)
[2018-12-17] MEDS: INSULIN ASPART (NovoLOG) 100 UNIT/ML VIAL SQ SCH ×2 (08:20→13:16)
[2018-12-17] MEDS: ASCORBIC ACID 500 MG TAB PO SCH (08:20)
[2018-12-17] MEDS: FAMOTIDINE 20 MG TAB PO SCH (08:20)
[2018-12-17] MEDS: TAMSULOSIN 0.4 MG CAP.ER.24H PO SCH (08:20)
[2018-12-17] MEDS: ENOXAPARIN 40 MG/0.4 ML SYRINGE SQ SCH (08:20)
[2018-12-17] MEDS: SODIUM CHLORIDE 0.9% 1,000 ML IV SCH (08:21)
[2018-12-17 11:48] LABS: Glucose,Whole Blood 119 mg/dL (75-99)
--- NOTE | 2018-12-17 13:27 | P.DS ---
Providers Date of admission: 12/15/18 16:45 Expected date of discharge: 12/17/18 Attending physician: Luke Garcia Consults: 12/14/18 08:44 Consult Physician Routine Consulting Provider: Jesus Miller Consult Reason/Comments: optic neuritis Do you want consulting provider notified?: Yes 12/16/18 08:09 Consult to Anesthesia Routine Consulting Provider: Anesthesia,Services Consult Reason/Comments: Possible interventional pain management particularly L4 5 left, possible ce Primary care physician: Luke [facility] Hospital Course: Diagnosis on discharge: 1. Blurred vision and bilateral eye pain related to optic neuritis flareup. Patient started on Solu-Medrol 250 every 8 hours 3 days. Today is the last day of steroids. Last dose of IV steroids as around midnight tonight. Anticipate discharge tomorrow. Patient cleared by neurology once he has completed the IV steroids. Patient to follow-up with MS specialist and neuro oracle soa developer out of [facility] for recurrent optic neuritis. MRI of the spine did not reveal intramedullary lesions to support NMO. 2. History of neuromyelitis optic of both eyes. Patient reports he's has followed with multiple specialist without significant improvement 3. History of enlarged prostate continue Flomax 4. History of DVT of the leg several years ago completed anticoagulation treatment 5. History of diverticulitis cleansed bowel perforation requiring multiple bowel resections with colostomy reversal colostomy 6. Nicotine dependence. Patient educated treatment patient shorter 7. History of GERD 8. History of anxiety and depression 9. Disc herniation of L4-L5 with lower left extremity radiculopathy patient seen by Dr. Whittaker who recommended pain service evaluation. Patient seen by Dr. Mora recommending outpatient epidural injections. Continue [place] 5/325 every 4 hours as needed for pain. Pain services recommending to adjust the Neurontin 100 mg every morning 100mg every evening and 200 mg at bedtime 10. Chronic cervical, thoracic and lumbar pain continue his current pain management Hospital course: This is a 43-year-old male patient who presented with complaints of bilateral eye pain and blurry vision for the past 2 days likely associated with his known optic neuritis flareup. Patient reports he has known history of left optic nerve damage in which she experiences optic neuritis. Patient reports last flareup was in January. Patient reports he has been seen by multiple providers for this issue including Dr. Ayers and a specialist out of [facility]. Additional medical history includes DVT, GERD, memory impairment, musculoskeletal disorder, osteoarthritis, pneumonia, prostate disorder, anxiety and depression. Patient has been started on Solu-Medrol 250 every 8 hours neurology services have been consulted. At this time patient denies chest pain or shortness of breath. Patient denies nausea vomiting or diarrhea. Patient denies any urinary burning or frequency. On 12/15/2018 patient is alert and oriented 3. Patient reports some improvement with blurry vision. Patient also in reports improvement with IV pain. Patient remains on IV steroids neurology services are following. At this time patient denies chest pain or shortness of breath. Patient denies nausea vomiting or diarrhea. Patient denies any urinary burning or frequency. 12/16/2018 studies patient's last day of IV steroids. Initiated and around midnight tonight. Patient is reporting improvement in his eye pain as well as blurry vision. Neurology has cleared him after he receives his last dose of IV steroids. Patient was seen by Dr. Whittaker and pain service. Pain services recommending that patient follows up in the pain clinic for epidural injections. They've also recommended to increase the Neurontin to 100 mg in the morning 100 mg every p.m. and 200 mg at bedtime. Patient denies any chest pain or shortness breath. Denies any nausea or vomiting. Denies any bowel changes or urinary symptoms. On 12/17/2018 patient was seen and examined on the medical floor he is alert and oriented 3 in no apparent distress his blurred vision has resolved he has finished all 10 doses of IV Solu-Medrol he will be discharged home today he will continue his same medication as prior to admission he will follow-up in the office within 1 week arrangement will be made to follow-up with Dr. Malave at the pain clinic in regard to herniated disc and pain management also arrangement will be made for MS clinic at [facility] Patient Condition at Discharge: Stable Plan - Discharge Summary Discharge Rx Participant: No New Discharge Prescriptions: Continue Tamsulosin [Flomax] 0.4 mg PO BID Ergocalciferol (Vitamin D2) [Vitamin D2] 50,000 unit PO FR Fluticasone Nasal [place] [Flonase Nasal [place]] 1 spray EA NOSTRIL DAILY Loratadine [Claritin] 10 mg PO DAILY Rosuvastatin Calcium [Crestor] 10 mg PO DAILY Discharge Medication List Ergocalciferol (Vitamin D2) [Vitamin D2] 50,000 unit PO FR 09/27/17 [History] Fluticasone Nasal [place] [Flonase Nasal [place]] 1 spray EA NOSTRIL DAILY 09/27/17 [History] Loratadine [Claritin] 10 mg PO DAILY 09/27/17 [History] Tamsulosin [Flomax] 0.4 mg PO BID 09/27/17 [History] Rosuvastatin Calcium [Crestor] 10 mg PO DAILY 12/14/18 [History] Follow up Appointment(s)/Referral(s): Sasha Mora MD [STAFF PHYSICIAN] - 1 Week Luke Garcia MD [Primary Care Provider] - 1-2 days Patient Instructions/Handouts: Acute Headache (DC)
== END 2018-12-17 14:20 | disposition home or self-care (01) | DRG 123 ==
LOC: EC 23:02 → 4MS4W 12-14 02:29 → OBSVTOIN 12-15 16:45
PROVIDERS: ADMIT Internal Medicine; ATTEND Internal Medicine
DX: H46.9 Unspecified optic neuritis (principal); N40.0 Benign prostatic hyperplasia without lower urinary tract symptoms; F17.200 Nicotine dependence, unspecified, uncomplicated; K21.9 Gastro-esophageal reflux disease without esophagitis; F32.9 Major depressive disorder, single episode, unspecified; F41.9 Anxiety disorder, unspecified; M19.90 Unspecified osteoarthritis, unspecified site; M51.26 Other intervertebral disc displacement, lumbar region; G89.29 Other chronic pain; M16.0 Bilateral primary osteoarthritis of hip; M50.30 Other cervical disc degeneration, unspecified cervical region; Z86.718 Personal history of other venous thrombosis and embolism; Z79.899 Other long term (current) drug therapy; Z93.3 Colostomy status; Z80.8 Family history of malignant neoplasm of other organs or systems; Z88.2 Allergy status to sulfonamides; Z91.030 Bee allergy status; Z91.041 Radiographic dye allergy status; Z91.013 Allergy to seafood; Z90.49 Acquired absence of other specified parts of digestive tract; Z90.89 Acquired absence of other organs; Z98.890 Other specified postprocedural states; Z87.01 Personal history of pneumonia (recurrent); Z82.49 Family history of ischemic heart disease and other diseases of the circulatory system
CPT/HCPCS: 36415; 72156; 72157; 72158; 80053; 85025; 85610; 85730; 96365; 96366; 96375; 96376; 99285

== ENCOUNTER 2018-12-26 06:52 | Day surgery (SDC) | payer MEDICARE ==
[2018-12-21 14:15] VITALS: BMI 24.3
[2018-12-26] MEDS ORDERED: LACTATED RINGERS 1,000 ML IV SCH (07:00)
[2018-12-26 07:17] VITALS: TEMP 97.8
[2018-12-26] MEDS ORDERED: IV FLUID CONTINUATION 1,000 ML IV ONE ×2 (08:34)
[2018-12-26 08:46] VITALS: BP 106/72; PULSE 79; RESP 18
--- NOTE | 2018-12-26 09:13 | P.PCN ---
Date of Procedure: 12/26/18 Procedure(s) Performed: PREOPERATIVE DIAGNOSIS: Lumbar radiculopathy in left L4-5 distribution. Lumbar herniated disc disease. POSTOPERATIVE DIAGNOSIS: Same as preoperative diagnoses PROCEDURE 1. Transforaminal epidural steroid injection under fluoroscopic guidance at Left L4-5 level. (Fluoroscopy images stored on file in the radiology Department ) ANESTHESIA: Local with 1% lidocaine 3 ml , moderate sedation with intravenous Versed 2 mg and fentanyle 50 micrograms EBL: Minimal PROCEDURE INDICATION: The patient with low back pain and radiculopathy symptoms unresponsive to conservative treatment. PROCEDURE DESCRIPTION / TECHNIQUE: The patient was seen and identified in the preoperative area. Risks, benefits, complications, and alternatives were discussed with the patient. The patient agreed to proceed with the procedure and signed the consent. IV was started, and vital signs were stable. Patient was taken to the OR and time out was completed. The patient was placed in the prone position on procedure table and a pillow was placed under the abdomen to reduce lumbar lordosis. The lumbosacral area was prepped and draped in the usual sterile fashion. Critical pause was taken. Vital signs were closely monitored during the procedure. Conscious sedation was used during the procedure to decrease patient s anxiety. Using oblique fluoroscopy, the chin of the ``Zack dog at L4-5 level was identified, and the skin and deeper tissues just below was localized with 1% lidocaine. Subsequently, a 22-gauge 3.5-inch spinal needle was advanced under a tunneled view fluoroscopic guidance just underneath the chin of the ``Zack dog at the left L4-5 . Under lateral fluoroscopy, the needle was then advanced to the posterior border of the Left L4-5 interforaminal space. After negative aspiration of CSF and blood Subsequently, 3 mL of block solution containing 80 mg Depo-Medrol and 2 mL of Lidocaine 1% was injected. Needle was removed , skin was cleansed, and bandages were applied. Isovue was not used because patient had ALLERGY to IVP dyes COMPLICATIONS:none DISPOSITION / PLANS: The patient was placed in a supine position and transferred to the recovery area in a stable condition for observation. There was no evidence of lower extremity motor or sensory deficit after the procedure. Patient was discharged from the recovery room after meeting discharge criteria. Home discharge instructions were given to the patient by the staff. The patient was reexamined prior to discharge.
--- NOTE | 2018-12-26 09:40 | FL ---
EXAMINATION TYPE: FL guided pain mgmt statistic DATE OF EXAM: 12/26/2018 HISTORY: Flouroscopy time 10 seconds of fluoroscopy provided. IMPRESSION: 1. Fluoroscopy time.
== END 2018-12-26 09:13 | disposition home or self-care (01) ==
LOC: ORPAIN 06:52
PROVIDERS: ATTEND Specialist
DX: M51.16 Intervertebral disc disorders with radiculopathy, lumbar region (principal); Z91.041 Radiographic dye allergy status; Z88.2 Allergy status to sulfonamides; Z91.030 Bee allergy status; Z91.013 Allergy to seafood
CPT/HCPCS: 64483; J2250; J1030; J3010

== ENCOUNTER → 2019-01-09 | Day surgery (SDC) | payer MEDICARE ==
[2019-01-05 13:40] VITALS: BMI 24.3
[~2019-01-09] MED LIST changes: +LACTATED RINGERS 1,000 ML IV SCH; -SODIUM CHLORIDE 0.9% 1,000 ML IV SCH
[2019-01-09 07:18] VITALS: RESP 16; TEMP 97.3
--- NOTE | 2019-01-09 08:07 | P.PCN ---
Date of Procedure: 01/09/19 Procedure(s) Performed: PREOPERATIVE DIAGNOSIS: Lumbar radiculopathy in left L4-5 distribution. Lumbar herniated disc disease. POSTOPERATIVE DIAGNOSIS: Same as preoperative diagnoses PROCEDURE 1. Transforaminal epidural steroid injection under fluoroscopic guidance at Left L4-5 level. (Fluoroscopy images stored on file in the radiology Department ) ANESTHESIA: Local with 1% lidocaine 3 ml , moderate sedation with intravenous Versed 2 mg and fentanyle 50 micrograms EBL: Minimal PROCEDURE INDICATION: The patient with low back pain and radiculopathy symptoms unresponsive to conservative treatment. PROCEDURE DESCRIPTION / TECHNIQUE: The patient was seen and identified in the preoperative area. Risks, benefits, complications, and alternatives were discussed with the patient. The patient agreed to proceed with the procedure and signed the consent. IV was started, and vital signs were stable. Patient was taken to the OR and time out was completed. The patient was placed in the prone position on procedure table and a pillow was placed under the abdomen to reduce lumbar lordosis. The lumbosacral area was prepped and draped in the usual sterile fashion. Critical pause was taken. Vital signs were closely monitored during the procedure. Conscious sedation was used during the procedure to decrease patient s anxiety. Using oblique fluoroscopy, the chin of the ``Zack dog at L4-5 level was identified, and the skin and deeper tissues just below was localized with 1% lidocaine. Subsequently, a 22-gauge 3.5-inch spinal needle was advanced under a tunneled view fluoroscopic guidance just underneath the chin of the ``Zack dog at the left L4-5 . Under lateral fluoroscopy, the needle was then advanced to the posterior border of the Left L4-5 interforaminal space. After negative aspiration of CSF and blood Subsequently, 3 mL of block solution containing 80 mg Depo-Medrol and 2 mL of Lidocaine 1% was injected. Needle was removed , skin was cleansed, and bandages were applied. Isovue was not used because patient had ALLERGY to IVP dyes COMPLICATIONS:none DISPOSITION / PLANS: The patient was placed in a supine position and transferred to the recovery area in a stable condition for observation. There was no evidence of lower extremity motor or sensory deficit after the procedure. Patient was discharged from the recovery room after meeting discharge criteria. Home discharge instructions were given to the patient by the staff. The patient was reexamined prior to discharge.
[2019-01-09 08:36] VITALS: BP 110/76; PULSE 66
--- NOTE | 2019-01-09 12:57 | FL ---
Fluoroscopy HISTORY: Pain 6 seconds fluoroscopy time supplied to the referring clinician. 2 intraoperative C-arm images docume nt the procedure. See dictated report from anesthesia.
== END ==
LOC: ORPAIN 06:59
PROVIDERS: ATTEND Specialist
DX: M51.16 Intervertebral disc disorders with radiculopathy, lumbar region (principal); Z91.041 Radiographic dye allergy status; Z91.030 Bee allergy status
CPT/HCPCS: 64483; J2250; J1030; J3010

== ENCOUNTER → 2019-01-23 | Outpatient (CLI) | payer MEDICARE, OTHER ==
[2019-01-23 14:22] VITALS: BP 114/70; PULSE 60; RESP 16
--- NOTE | 2019-01-23 14:47 | P.PN ---
Subjective Progress Note Date: 01/23/19 This is a 43-year-old gentleman with history of multiple abdominal surgeries due to to diverticulitis and diverticular perforation. The patient also has large disc herniation at the L4 5 level towards the left side with pain and numbness in the left leg. His lower back and left leg pain got better after the last transforaminal epidural steroid injection however he complains of increasing neck pain at this point. The neck pain goes down both shoulders and up to the occipital area over of his head. He also feels numbness in both hands. The neck pain gets worse by turning the head right or left. The patient also has left optic neuritis and he is on and off steroids from time to time. He will go to [facility] to rule out multiple sclerosis. He also has congenital fusion of C5 with C6. Patient denies new-onset weakness, bowel/bladder incontinence, or any other signs or symptoms of cauda equina syndrome. There are no signs of acute intoxication, and no indications of medication diversion or overuse. In addition to above, 13-point review of systems is also negative for chest pain, shortness of breath, changes in vision, changes in hearing, new onset weakness, abdominal pain, diarrhea, extreme fatigue, malaise, fever, skin changes, homicidal or suicidal ideation, or bowel or bladder incontinence. Vital Signs: Reviewed in EMR Gen: AAOx3, NAD HEENT: PERRLA,hearing grossly normal Pulm: resp unlabored Heart: Regular Neck: supple, trachea midline Neuro exam of the lower extremities: Decreased but symmetrical muscle strength and deep tendon reflexes Neuro exam of the upper extremities: No ptosis strength bilaterally and decr eased right biceps and triceps reflex. Straight leg raising test: Tremaine's test: Range of motion of the cervical spine: Decreased Facet loading test: Tenderness in the paravertebral musculature: Positive tenderness in the cervical and lumbar paravertebral musculature Neuro: CN II-XII grossly intact, Imaging: Reviewed in EMR/chart Assessment: Congenital fusion of C5 and C6 Cervical spondylosis without myelopathy Cervicogenic headache Left lumbar radiculopathy Left optic neuritis Intermittent treatment with steroids Plan: 1. Explanation: Opioid and psychological risk scores were reviewed. Diagnoses, prognoses, and multiple treatment options including but not limited to physical therapy, interventional therapies, adjuvant medical therapies, narcotic medication therapies, and surgery were discussed with the patient and all questions were answered to the patient's satisfaction. 2. Opioid agreement: Signed with the patient and the patient is warned not to use opioids while driving or before driving and not to combine opioids with benzodiazepines or alcohol. 3. Counseling: The patient was counseled extensively on SMOKING CESSATION, BODY MASS INDEX, EXERCISE. Specifically, the patient was instructed regarding the importance of smoking cessation, obesity, and exercise in the context of both chronic pain and overall health. 4. Procedures: Scheduled for cervical diagnostic medial branch block for levels C2, C3, C4 and third occipital nerve bilaterally under fluoroscopic guidance. The procedure was explained to the patient time was agreeable to it. 5. Consultations: None 6. Investigations: None 7. Medications: None 8. Disposition: Return to the above-mentioned procedure as soon as possible 9. Maps were reviewed and were appropriate. Objective - Vital Signs Vital signs: Vital Signs Temp Pulse 60 01/23/19 14:19 Resp 16 01/23/19 14:19 BP 114/70 01/23/19 14:19 Pulse Ox 97 01/23/19 14:19
== END | disposition home or self-care (01) ==
LOC: PNWHC3 13:54
PROVIDERS: ATTEND Anesthesiology
DX: M54.16 Radiculopathy, lumbar region (principal); M47.812 Spondylosis without myelopathy or radiculopathy, cervical region; H46.9 Unspecified optic neuritis; M43.22 Fusion of spine, cervical region
CPT/HCPCS: 99211

== ENCOUNTER 2019-01-26 07:47 | Day surgery (SDC) | payer MEDICARE, OTHER ==
[2019-01-24 11:08] VITALS: BMI 24.3
[2019-01-26 08:25] VITALS: RESP 18; TEMP 98.1
[2019-01-26] MEDS ORDERED: LACTATED RINGERS 1,000 ML IV ONE (08:25)
[2019-01-26] MEDS ORDERED: LIDOCAINE 1% 20 ML VIAL (10MG/ML) FOR IV START INTRADERMA ONE (08:25)
--- NOTE | 2019-01-26 09:33 | P.PCN ---
Date of Procedure: 01/26/19 Procedure(s) Performed: PREOPERATIVE DIAGNOSIS: Cervical Spondylosis with Facet Arthropathy.without myelopathy POSTOPERATIVE DIAGNOSIS: Cervical Spondylosis Facet Arthropathy. Without myelopathy PROCEDURES: Diagnostic , bilateral cervical C2, C3, C4, C5 and TON medial branch blocks, with fluoroscopic guidance ANESTHESIA: Local with 1% lidocaine; moderate sedation with Versed 2 mg. EBL: Minimal PROCEDURE INDICATION: The patient with neck pain secondary to cervical arthropathy unresponsive to more conservative treatments. PROCEDURE DESCRIPTION / TECHNIQUE: The patient was seen and identified in the preoperative area. Risks, benefits, complications, and alternatives were di scussed with the patient, the patient agreed to proceed with the procedure and signed the consent. IV was started. Vital signs remained stable throughout the procedure. Patient was taken to the OR and time out was completed. The patient was placed in the prone position on the procedure table. A pillow was placed under the patients chest to increase the cervical interlaminar space. The cervical area was prepped and draped in the usual sterile fashion. Critical pause was taken. Vital signs were closely monitored during the procedure. Conscious sedation was used during the procedure to decrease patients anxiety. Using cross-table lateral fluoroscopy, the centroid of the trapezoid of the right side of the first level was identified, marked, and localized with 1% lidocaine 1 ml at each level for skin and subcutaneous infiltrations . Subsequently, a 25 G spinal needle was advanced guided by fluoroscopy to the centroid of the trapezoid . [place] tip position was confirmed at the centroid of the trapezoids anteroposterior fluoroscopy. Subsequently, .5 mL of 0..5% ropivacaine was injected at each level. Images were saved to radiology COMPLICATIONS: No acute complications. COMMENTS: DISPOSITION / PLANS: The patient was placed in a supine position and transferred to the recovery area in a stable condition for observation and was discharged from the recovery room after meeting discharge criteria. Home discharge instructions given to the patient by the staff. He will have repeat cervical medial branch block, she has good relief with this one.
[2019-01-26] MEDS ORDERED: IV FLUID CONTINUATION 500 ML IV ONE (09:40)
--- NOTE | 2019-01-26 09:57 | FL ---
EXAMINATION TYPE: FL guided pain mgmt statistic DATE OF EXAM: 01/26/2019 HISTORY: Flouroscopy time 18 seconds of fluoroscopy provided. IMPRESSION: 1. Fluoroscopy time.
[2019-01-26 10:05] VITALS: BP 103/69; PULSE 77
== END 2019-01-26 10:10 | disposition home or self-care (01) ==
LOC: ORPAIN 07:47
PROVIDERS: ATTEND Student in an Organized Health Care Education/Training Program
DX: M47.812 Spondylosis without myelopathy or radiculopathy, cervical region (principal); Z91.013 Allergy to seafood; Z88.2 Allergy status to sulfonamides; Z91.09 Other allergy status, other than to drugs and biological substances
CPT/HCPCS: 64490; 64491; J2250; 99152; 99153

== ENCOUNTER 2019-02-22 06:56 | Day surgery (SDC) | payer MEDICARE, OTHER ==
[2019-02-20 12:32] VITALS: BMI 24.3
[2019-02-22 07:14] VITALS: TEMP 98.3
--- NOTE | 2019-02-22 08:45 | P.PCN ---
Date of Procedure: 02/22/19 Procedure(s) Performed: PREOPERATIVE DIAGNOSIS: Cervical Spondylosis with Facet Arthropathy.without myelopathy POSTOPERATIVE DIAGNOSIS: Cervical Spondylosis Facet Arthropathy. Without myelopathy PROCEDURES: Diagnostic , bilateral medial branch blocks at C2, TON, C3, C4, with fluoroscopic guidance ANESTHESIA: Local with 1% lidocaine; IV sedation with Versed, 2 mg. EBL: Minimal PROCEDURE INDICATION: The patient with neck pain secondary to cervical arthropathy unresponsive to more conservative treatments. PROCEDURE DESCRIPTION / TECHNIQUE: The patient was seen and identified in the preoperative area. Risks, benefits, complications, and alternatives were discussed with the patient, the patient agreed to proceed with the procedure and signed the consent. IV was started. Vital signs remained stable throughout the procedure. Patient was taken to the OR and time out was completed. The patient was placed in the prone position on the procedure table. A pillow was placed under the patients chest to increase the cervical interlaminar space. The cervical area was prepped and draped in the usual sterile fashion. Critical pause was taken. Vital signs were closely monitored during the procedure. Conscious sedation was used during the procedure to decrease patients anxiety. Using cross-table lateral fluoroscopy, the centroid of the trapezoid of the right side of the first level was identified, marked, and localized with 1% lidocaine 1 ml at each level for skin and subcutaneous infiltrations . Subsequently, a 25 G spinal needle was advanced guided by fluoroscopy to the centroid of the trapezoid at the C2, TON, C3, and C4. [place] tip position was confirmed at the centroid of the trapezoids anteroposterior fluoroscopy. Subsequently, 1 mL of 0.25% bupivacaine with 10 mg of Depo-Medrol was injected at each level. COMPLICATIONS: No acute complications. COMMENTS: DISPOSITION / PLANS: The patient was placed in a supine position and transferred to the recovery area in a stable condition for observation and was discharged from the recovery room after meeting discharge criteria. Home discharge instructions given to the patient by the staff. He will be seen in clinic to decide whether he is a candidate for cervical RFA.
[2019-02-22] MEDS ORDERED: IV FLUID CONTINUATION 1,000 ML IV ONE ×2 (08:48)
[2019-02-22 08:51] VITALS: RESP 16
[2019-02-22 09:14] VITALS: BP 119/79; PULSE 74
--- NOTE | 2019-02-22 10:35 | FL ---
Fluoroscopy HISTORY: Pain 27 seconds fluoroscopy time supplied to the referring clinician. 4 intraoperative C-arm images docum ent the procedure. See dictated report from anesthesia.
== END 2019-02-22 09:20 | disposition home or self-care (01) ==
LOC: ORPAIN 06:56
PROVIDERS: ATTEND Student in an Organized Health Care Education/Training Program
DX: M47.812 Spondylosis without myelopathy or radiculopathy, cervical region (principal); Z88.2 Allergy status to sulfonamides; Z91.041 Radiographic dye allergy status
CPT/HCPCS: 64490; 64491; 64492; J2250; 99152; 99153

== ENCOUNTER → 2019-03-20 | Outpatient (CLI) | payer MEDICARE, OTHER ==
[2019-03-20 11:48] VITALS: BP 104/73; PULSE 81; RESP 16
--- NOTE | 2019-03-23 07:41 | P.PAINPG ---
Subjective Progress Note Date: 03/20/19 This is a 44-year-old gentleman who returns to clinic today for follow-up. He recently underwent diagnostic medial branch blocks at TON, C2, C3, C4 on 01/26/2019 and 02/22/2019. He reports excellent relief following these procedures, pain reduced from 7-2/10. Patient reports pain relief lasted at least 2 weeks. Of note he has a history of multiple abdominal surgeries due to to diverticulitis and diverticular perforation. He has also been diagnosed with optic neuritis and gets high-dose steroids every few months. The patient also has large disc herniation at the L4 5 level towards the left side with pain and numbness in the left leg. His lower back and left leg pain got better after the last transforaminal epidural steroid injection however he complains of increasing neck pain at this point. The neck pain goes down both shoulders and up to the occipital area over of his head. He also feels numbness in both hands and the lateral aspect of his right arm. The neck pain gets worse by turning the head right or left. He will go to [facility] to rule out multiple sclerosis. He also has congenital fusion of C5 with C6. For pain, he takes [place] 10/325 one tablet every 2-3 days. Patient denies new-onset weakness, bowel/bladder incontinence, or any other signs or symptoms of cauda equina syndrome. There are no signs of acute intoxication, and no indications of medication diversion or overuse. In addition to above, 13-point review of systems is also negative for chest pain, shortness of breath, changes in vision, changes in hearing, new onset weakness, abdominal pain, diarrhea, extreme fatigue, malaise, fever, skin changes, homicidal or suicidal ideation, or bowel or bladder incontinence. Review of systems is positive for night sweats Physical exam: Vitals: Reviewed in EMR GENERAL: Well appearing, in no acute distress PSYCH: Mood and affect is appropriate. Awake, alert, and oriented SKIN: Skin color, texture, turgor normal, no rashes or lesions HEENT: Normocephalic, atraumatic. EOM intact CV: No pedal edema RESP: Respirations are unlabored, no audible wheezing GI: Abdomen non-distended MUSCULOSKELETAL: Bilateral upper extremity strength is normal and symmetric. No atrophy or tone abnormalities are noted. Neck: Tenderness to palpation over the cervical paraspinous muscles bilaterally. Spurling positive on right for radicular pain down right arm, facet loading positive, Donohue's sign negative. Pain limited restricted cervical spine range of motion in all directions Extremities: Peripheral joint ROM is full and pain free without obvious instability or laxity in all four extremities. No edema or skin discolorations noted. Gait: Gait is normal NEUR: Bilateral upper extremity coordination and muscle stretch reflexes are physiologic and symmetric. Loss of sensation to light touch noted in entire right hand and lateral aspect of right arm Imaging: Reviewed in EMR/chart Assessment: Congenital fusion of C5 and C6 Cervical spondylosis without myelopathy Cervicogenic headache Left lumbar radiculopathy Left optic neuritis Intermittent treatment with steroids History of diverticulitis Plan: 1. Explanation: Opioid and psychological risk scores were reviewed. Diagnoses, prognoses, and multiple treatment options including but not limited to physical therapy, interventional therapies, adjuvant medical therapies, narcotic medication therapies, and surgery were discussed with the patient and all questions were answered to the patient's satisfaction. 2. Opioid agreement: None 3. Counseling: None 4. Procedures: Given significant benefit from diagnostic cervical medial branch blocks, we will schedule her frequency ablation of the C2, C3, C4 and third occipital nerve under fluoroscopic guidance, we'll start on the left side. The procedure was explained to the patient and he was agreeable to it. We will plan on using no steroid for this procedure, given his intermittent burst of steroids with optic neuritis 5. Consultations: None 6. Investigations: None 7. Medications: Patient was instructed to discuss gabapentin and/ or Lyrica with primary care physician. In the past, he has been on gabapentin and has had an adverse reaction to it in the form of fainting spells. I advised him that he might require a lower dose of gabapentin. He agreed to discuss this with his primary care physician. 8. Disposition: Return to the above-mentioned procedure as soon as possible PQRS Measure Charge Sheet Measure #130: Documentation of Current Meds in Medical Chart: Patient's medications documented in chart Measure #226: Tobacco Use: Screen & Cessation Intervention: Pt screened for tobacco use AND intervention given Measure #111: Pneumonia Vaccination: Pneumococcal vaccine administered or previously received Measure #47: Advance Care Plan: Advance care planning discussed & documented, pt chose/unable to give Measure #412: Opioid Treatment Agreement: No documentation of signed opioid treatment agreement Measure #317: Preventitive Care & Scrn High Bld Press & F/U: Normal blood pressure, f/u not required Measure #128: Body Mass Index (BMI) Screening & Follow-up: BMI documented within normal parameters Measure #131: Pain Assessment & Follow-up: Pain positive & plan documented, Follow-up scheduled Measure #431: Unhealthy Alcohol Use Preventative Care & Scrn: Patient not identified as an unhealthy alcohol user PQRS Narrative: Smoking Status Current every day smoker Pain Intensity [Neck] 7 Hx Alcohol Use (MH) No Home Medications: Ambulatory Orders Ergocalciferol (Vitamin D2) [Vitamin D2] 50,000 unit PO FR 09/27/17 Fluticasone Nasal [place] [Flonase Nasal [place]] 1 spray EA NOSTRIL DAILY PRN 09/27/17 Loratadine [Claritin] 10 mg PO DAILY PRN 09/27/17 Tamsulosin [Flomax] 0.4 mg PO BID 09/27/17 HYDROcodone/APAP 10-325MG [[place] 10-325] 1 tab PO TID PRN 01/05/19 Controlled Substance Measures - Controlled Substance Measures Is patient prescribed a controlled substance at discharge?: No
== END | disposition home or self-care (01) ==
LOC: PNWHC3 11:31
PROVIDERS: ATTEND Anesthesiology
DX: M47.812 Spondylosis without myelopathy or radiculopathy, cervical region (principal); M43.22 Fusion of spine, cervical region; M54.16 Radiculopathy, lumbar region; H46.8 Other optic neuritis; Z87.19 Personal history of other diseases of the digestive system; F17.200 Nicotine dependence, unspecified, uncomplicated; Z79.51 Long term (current) use of inhaled steroids; Z79.891 Long term (current) use of opiate analgesic; Z79.899 Other long term (current) drug therapy
CPT/HCPCS: 99211

== ENCOUNTER → 2019-03-31 | Outpatient (CLI) | payer MEDICARE, OTHER ==
--- NOTE | 2019-04-01 00:40 | MR ---
EXAMINATION TYPE: MR brain wo/w con DATE OF EXAM: 03/31/2019 COMPARISON: 01/02/2016 HISTORY: Unspecified optic neuritis CONTRAST: Standard multiplanar, multisequence MRI departmental protocol utilizing 7.5 mL intravenous Gadavist g adolinium contrast. Ventricles have normal size. There is no mass effect nor midline shift. There is no sign of intracran ial hemorrhage. Quinn-white matter structures have fairly normal signal pattern. There is no evidence of cerebral edema. There is no evidence of orbital mass. Optic nerves have normal signal pattern. The re is no edema. Diffusion images show no evidence of cortical infarct. Sella turcica appears normal. Corpus callosum appears intact. Brainstem is intact. Cerebellum appears normal. Contrast images show normal enhancement of the venous sinuses. There is no pathologic enhancement. IMPRESSION: Normal MR scan of the brain. No evidence of demyelinating disease. No adverse change compared to old exam.
== END | disposition home or self-care (01) ==
LOC: RADMRIMAIN 12:55
PROVIDERS: ATTEND Internal Medicine
DX: H46.9 Unspecified optic neuritis (principal)
CPT/HCPCS: 70553; A9585

== ENCOUNTER 2019-05-01 07:49 | Day surgery (SDC) | payer MEDICARE, OTHER ==
[2019-04-27 09:37] VITALS: BMI 23.6
[~2019-05-01 07:49] MED LIST changes: +BUPIVACAINE (PF) 0.5% 30 ML VIAL ONE; +MIDAZOLAM 2 MG/2 ML VIAL ONE; +fentaNYL (PF) 50 MCG/ML 2 ML AMP ONE; +methylPREDNISolone ACETATE 40 MG/ML 1 ML VIAL ONE
[2019-05-01] MEDS ORDERED: LACTATED RINGERS 1,000 ML IV ONE (08:23)
[2019-05-01 08:30] VITALS: RESP 16; TEMP 98.3
[2019-05-01] MEDS ORDERED: IV FLUID CONTINUATION 1,000 ML IV ONE ×2 (09:11)
--- NOTE | 2019-05-01 09:13 | P.PCN ---
Date of Procedure: 05/01/19 Procedure(s) Performed: PREOPERATIVE DIAGNOSIS: Cervical spondylosis with Facet Arthropathy without myelopathy. POSTOPERATIVE DIAGNOSIS: Cervical spondylosis with Facet Arthropathy without myelopathy. PROCEDURES: Radiofrequency thermocoagulation left C2 , C3, C4 medial branch with Fluroscopy [place](fluoroscopy was available in etiology department ) Radiofrequency thermocoagulation of the left side third occipital nerve. (to denervate the facet joint at left C2-3 , C3- 4 , left 3rd occipital nerve ) ANESTHESIA: Local with Ropivacaine 0.5 % , moderate sedation with fentanyl 100 micrograms and Versed. 2 mg EBL: Minimal PROCEDURE INDICATION: The patient with neck pain secondary to cervical arthropathy who had more than 50% relief of her pain with previous diagnostic cervical medial branch block. PROCEDURE DESCRIPTION / TECHNIQUE: The patient was seen and identified in the preoperative area. Risks, benefits, complications, and alternatives were discussed with the patient, the patient agreed to proceed with the procedure and signed the consent. IV was started. Vital signs remained stable throughout the procedure. Patient was taken to the OR and time out was completed. The patient was placed in the prone position on the procedure table. A pillow was placed under the patients chest to increase the cervical interlaminar space. The cervical area was prepped and draped in the usual sterile fashion. Critical pause was taken. Vital signs were closely monitored during the procedure. Conscious sedation was used during the procedure to decrease patients anxiety. Using cross-table lateral fluoroscopy, the centroid of the trapezoid of left C2 ,C3, C4, were identified, marked, and localized with 1% lidocaine. Subsequently, a 20 [id number] radiofrequency cannula with a 10-mm active tip was advanced guided by fluoroscopy to the centroid of the trapezoid of C2 ,C3, C4, and to do the left third occipital nerve radiofrequency ablation another 20-gauge radiofrequency active tip needle placed at the center of the facet joint between the C2 and C3 . Needle tip position was confirmed at the centroid of the trapezoids of left C2 ,C3, C4, and the third occipital nerve location, with anteroposterior fluoroscopy. Each site then underwent sensory testing at 50 Hz and 0 to 1 volt and motor testing at 2 Hz and 0 to 3 volt with local stimulation, but no radicular symptoms down the arm. Thereafter the left C2 ,C3, C4, and the third occipital sites underwent radiofrequency thermocoagulation at 80 degrees celsius for 90 seconds after injecting 0.5 ml of PF Ropivacaine 0.5 %. After thermocoagulation, 1 ml of the block solution containing Depo-Medrol 40 mg and 5 mL of preservative-free normal saline was injected at the left C2 , C3, C4, and the left side third occipital nerve levels ,after negative a spiration of CSF and blood and with no paresthesias. Cannulas were retracted while injecting lidocaine 1% until the needle is out. Skin was cleansed and bandages were applied. COMPLICATIONS: No acute complications. DISPOSITION / PLANS: The patient was placed in a supine position and transferred to the recovery area in a stable condition for observation and was discharged from the recovery room after meeting discharge criteria. Home discharge instructions given to the patient by the staff. The patient was reexamined prior to discharge. The patient will schedule a follow up in the clinic in 2-4 weeks.
[2019-05-01] MEDS ORDERED: LACTATED RINGERS 1,000 ML IV SCH (09:25)
[2019-05-01 09:28] VITALS: BP 96/54; PULSE 73
--- NOTE | 2019-05-01 13:33 | FL ---
Fluoroscopy HISTORY: Pain 6 seconds fluoroscopy time supplied to the referring clinician. 2 intraoperative C-arm images docume nt the procedure. See dictated report from anesthesia.
== END 2019-05-01 09:40 | disposition home or self-care (01) ==
LOC: ORPAIN 07:49
PROVIDERS: ATTEND Anesthesiology
DX: M47.812 Spondylosis without myelopathy or radiculopathy, cervical region (principal); M54.81 Occipital neuralgia; Z91.013 Allergy to seafood; Z91.048 Other nonmedicinal substance allergy status; Z88.2 Allergy status to sulfonamides
CPT/HCPCS: 64640; 64633; 64634; J2250; J1030; J3010; 99152

== ENCOUNTER → 2019-05-15 | Day surgery (SDC) | payer MEDICARE, OTHER ==
[~2019-05-15] MED LIST changes: +IV FLUID CONTINUATION 1,000 ML IV ONE; +LIDOCAINE 1% 20 ML VIAL (10MG/ML) FOR IV START INTRADERMA ONE
[2019-05-15 07:06] VITALS: TEMP 97.7
--- NOTE | 2019-05-15 07:58 | P.PCN ---
Date of Procedure: 05/15/19 Procedure(s) Performed: PREOPERATIVE DIAGNOSIS: Cervical spondylosis with Facet Arthropathy without myelopathy. POSTOPERATIVE DIAGNOSIS: Cervical spondylosis with Facet Arthropathy without myelopathy. PROCEDURES: Radiofrequency thermocoagulation Right C2 , C3, C4 medial branch with Fluroscopy [place](fluoroscopy was available in etiology department ) Radiofrequency thermocoagulation of the Right side third occipital nerve. (to denervate the facet joint at Rigt C2-3 , C3- 4 , Right 3rd occipital nerve ) ANESTHESIA: Local with Ropivacaine 0.5 % , moderate sedation with fentanyl 100 micrograms and Versed 2 mg EBL: Minimal PROCEDURE INDICATION: The patient with neck pain secondary to cervical arthropathy who had more than 50% relief of her pain with previous diagnostic cervical medial branch block. PROCEDURE DESCRIPTION / TECHNIQUE: The patient was seen and identified in the preoperative area. Risks, benefits, complications, and alternatives were discussed with the patient, the patient agreed to proceed with the procedure and signed the consent. IV was started. Vital signs remained stable throughout the procedure. Patient was taken to the OR and time out was completed. The patient was placed in the prone position on the procedure table. A pillow was placed under the patients chest to increase the cervical interlaminar space. The cervical area was prepped and draped in the usual sterile fashion. Critical pause was taken. Vital signs were closely monitored during the procedure. Conscious sedation was used during the procedure to decrease patients anxiety. Using cross-table lateral fluoroscopy, the centroid of the trapezoid of Right C2 ,C3, C4, were identified, marked, and localized with 1% lidocaine. Subsequently, a 20 -sk radiofrequency cannula with a 10-mm active tip was advanced guided by fluoroscopy to the centroid of the trapezoid of C2 ,C3, C4, and to do the left third occipital nerve radiofrequency ablation another 20-gauge radiofrequency active tip needle placed at the center of the facet joint between the C2 and C3 . Needle tip position was confirmed at the centroid of the trapezoids of Right C2 ,C3, C4, and the third occipital nerve location, with anteroposterior fluoroscopy. Each site then underwent sensory testing at 50 Hz and 0 to 1 volt and motor testing at 2 Hz and 0 to 3 volt with local stimulation, but no radicular symptoms down the arm. Thereafter the Right C2 ,C3, C4, and the third occipital sites underwent radiofrequency thermocoagulation at 80 degrees celsius for 90 seconds after injecting 0.5 ml of PF Ropivacaine 0.5 %. After thermocoagulation, 1 ml of the block solution containing Depo-Medrol 40 mg and 5 mL of preservative-free normal saline was injected at the Right C2 , C3, C4, and the Right side third occipital nerve levels ,after negative aspiration of CSF and blood and with no paresthesias. Cannulas were retracted while injecting lidocaine 1% until the needle is out. Skin was cleansed and bandages were applied. COMPLICATIONS: No acute complications. DISPOSITION / PLANS: The patient was placed in a supine position and transferred to the recovery area in a stable condition for observation and was discharged from the recovery room after meeting discharge criteria. Home discharge instructions given to the patient by the staff. The patient was reexamined prior to discharge. The patient will schedule a follow up in the clinic in 2-4 weeks.
[2019-05-15 08:36] VITALS: BP 116/68; PULSE 53; RESP 16
--- NOTE | 2019-05-15 12:57 | FL ---
Fluoroscopy HISTORY: Pain 8 seconds fluoroscopy time supplied to the referring clinician. 3 intraoperative C-arm images docume nt the procedure. See dictated report from anesthesia.
== END ==
LOC: ORPAIN 06:19
PROVIDERS: ATTEND Specialist
DX: M47.812 Spondylosis without myelopathy or radiculopathy, cervical region (principal)
CPT/HCPCS: 64633; 64640; 64634; J2250; J1030; J3010; 99152

== ENCOUNTER → 2019-06-12 | Day surgery (SDC) | payer MEDICARE, OTHER ==
[2019-06-08 13:44] VITALS: BMI 23.3
[~2019-06-12] MED LIST changes: -BUPIVACAINE (PF) 0.5% 30 ML VIAL ONE; -IV FLUID CONTINUATION 1,000 ML IV ONE; -LIDOCAINE 1% 20 ML VIAL (10MG/ML) FOR IV START INTRADERMA ONE; +LIDOCAINE 1% 20 ML VIAL (10MG/ML) FOR IV START INTRADERMA PRN
[2019-06-12 07:48] VITALS: TEMP 97.7
--- NOTE | 2019-06-12 08:12 | P.PCN ---
Date of Procedure: 06/12/19 Procedure(s) Performed: PREOPERATIVE DIAGNOSIS: Lumbar radiculopathy in left L4-5 distribution. Lumbar herniated disc disease. POSTOPERATIVE DIAGNOSIS: Same as preoperative diagnoses PROCEDURE 1. Transforaminal epidural steroid injection under fluoroscopic guidance at L4- 5 level Bilateral. (Fluoroscopy images stored on file in the radiology Department ) ANESTHESIA: Local with 1% lidocaine 5 ml , moderate sedation with intravenous Versed 2 mg , and fentanyle 100 micrograms. EBL: Minimal PROCEDURE INDICATION: The patient with low back pain and radiculopathy symptoms unresponsive to conservative treatment. PROCEDURE DESCRIPTION / TECHNIQUE: The patient was seen and identified in the preoperative area. Risks, benefits, complications, and alternatives were discussed with the patient. The patient agreed to proceed with the procedure and signed the consent. IV was started, and vital signs were stable. Patient was taken to the OR and time out was completed. The patient was placed in the prone position on procedure table and a pillow was placed under the abdomen to reduce lumbar lordosis. The lumbosacral area was prepped and draped in the usual sterile fashion. Critical pause was taken. Vital signs were closely monitored during the procedure. Conscious sedation was used during the procedure to decrease patient s anxiety. Using oblique fluoroscopy, the chin of the ``Zack dog at L4-5 level was identified, and the skin and deeper tissues just below was localized with 1% lidocaine. Subsequently, a 22-gauge 3.5-inch spinal needle was advanced under a tunneled view fluoroscopic guidance just underneath the chin of the ``Zack dog at the left L4-5 . Under lateral fluoroscopy, the needle was then advanced to the posterior border of the Left L4-5 interforaminal space. After negative aspiration of CSF and blood Subsequently, 3 mL of block solution containing 40 mg Depo-Medrol and 1 mL of Lidocaine 1% was injected. Needle was removed Leila same exact procedure was repeated for the right side at L4-5 levels Isovue was not used because patient had ALLERGY to IVP dyes COMPLICATIONS:none DISPOSITION / PLANS: The patient was placed in a supine position and transferred to the recovery area in a stable condition for observation. There was no evidence of lower extremity motor or sensory deficit after the procedure. Patient was discharged from the recovery room after meeting discharge criteria. Home discharge instructions were given to the patient by the staff. The patient was reexamined prior to discharge.
[2019-06-12 08:15] VITALS: RESP 17
[2019-06-12 08:21] VITALS: BP 107/63; PULSE 72
--- NOTE | 2019-06-12 08:29 | FL ---
Fluoroscopy HISTORY: Pain 12 seconds fluoroscopy time supplied to the referring clinician. 2 intraoperative C-arm images docum ent the procedure. See dictated report from anesthesia.
== END ==
LOC: ORPAIN 07:22
PROVIDERS: ATTEND Specialist
DX: M51.16 Intervertebral disc disorders with radiculopathy, lumbar region (principal); Z91.041 Radiographic dye allergy status; Z91.013 Allergy to seafood; Z91.048 Other nonmedicinal substance allergy status
CPT/HCPCS: 64483; J2250; J1030; J3010

== ENCOUNTER → 2021-01-22 | Outpatient (CLI) | payer MEDICARE ==
--- NOTE | 2021-01-23 04:39 | MR ---
EXAMINATION TYPE: MR lumbar spine wo con DATE OF EXAM: 01/22/2021 COMPARISON: 12/14/2018 HISTORY: Low back pain Multiplanar multiecho imaging of the lumbar spine without contrast. Lumbar vertebra have normal alignment. Lumbar disc spaces are fairly normal. There are minimal post doctoral fellow ior disc bulges from L1 to L4. There is developmentally adequate spinal canal. There is no spinal krystian nosis. Lumbar nerve roots appear normal. The lumbar neural foramina are fairly well-maintained. There is no lumbar paraspinal mass. Sacroiliac joints are intact. I see no bony destructive process. IMPRESSION: Mild posterior disc bulging in the upper lumbar spine as above. No spinal stenosis. There is complete clearing of the large posterior left side L4-5 lumbar disc herniation compared to old exam.
== END | disposition home or self-care (01) ==
LOC: RADMRIMAIN 15:20
PROVIDERS: ATTEND Internal Medicine
DX: M51.26 Other intervertebral disc displacement, lumbar region (principal)
CPT/HCPCS: 72148

== ENCOUNTER → 2021-01-30 | Outpatient (CLI) | payer MEDICARE ==
[2021-01-30 10:42] VITALS: BP 122/75; PULSE 101; RESP 18; TEMP 98.5
--- NOTE | 2021-01-30 11:02 | P.PN ---
Subjective Progress Note Date: 01/30/21 This is a 46-year-old gentleman with history of chronic neck and lower back pain. The patient is here today for increasing neck pain for which he had cervical medial branch RFA which did not help his pain and that was a painful procedure as he states. The patient has congenital fusion of C5 with C6. He tried physical therapy and massage therapy which did not help his pain. The pain occasionally wakes him up at night. He has baclofen 10 mg at night to help him with this pain. The patient also uses marijuana. He had multiple coronary sections previously and he is on a special diet for that. Patient denies new-onset weakness, bowel/bladder incontinence, or any other signs or symptoms of cauda equina syndrome. There are no signs of acute intoxication, and no indications of medication diversion or overuse. In addition to above, 13-point review of systems is also negative for chest pain, shortness of breath, changes in vision, changes in hearing, new onset weakness, abdominal pain, diarrhea, extreme fatigue, malaise, fever, skin changes, homicidal or suicidal ideation, or bowel or bladder incontinence. Vital Signs: Reviewed in EMR Gen: AAOx3, NAD HEENT: PERRLA,hearing grossly normal Pulm: resp unlabored Neck: supple, trachea midline Neuro exam of the upper extremities: Normal muscle strength and deep tendon reflexes are laterally Straight leg raising test: Tremaine's test: Range of motion of the cervical spine: Mildly decreased to right and left rotation. Facet loading test: Tenderness in the paravertebral musculature: Positive on the cervical paravertebral musculature and also in the trapezius muscles bilaterally. 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 Explanation: When patients on opioids, opioid and psychological risk scores were reviewed. Diagnoses, prognoses, and multiple treatment options including but not limited to physical therapy, interventional therapies, adjuvant medical therapies, narcotic medication therapies, and surgery were discussed with the patient and all questions were answered to the patient's satisfaction. 2. Opioid agreement:When patients are prescribed opoids through our clinic, opioid agreement is signed with the patient and the patient is warned not to use opioids while driving or before driving and not to combine opioids with benzodiazepines or alcohol. 3. Counseling: When patient is smoking or obese, the patient was counseled extensively on SMOKING CESSATION, BODY MASS INDEX, EXERCISE. Specifically, the patient was instructed regarding the importance of smoking cessation, obesity, and exercise in the context of both chronic pain and overall health. 4. Procedures: The patient prefers to avoid medial branch RFA due to bad experience. He might benefit from getting trigger point injection in the cervical paravertebral musculature bilaterally and also in the trapezius muscles and akins praspinatus muscles bilaterally 5. Consultations: None 6. Investigations: None 7. Medications: None prescribed in our clinic 8. Disposition: Return to the above-mentioned procedure as soon as possible 9. Maps were reviewed and were appropriate. Objective - Vital Signs Vital signs: Vital Signs Temp 98.5 F 01/30/21 10:36 Pulse 101 H 01/30/21 10:36 Resp 18 01/30/21 10:36 BP 122/75 01/30/21 10:36 Pulse Ox 96 01/30/21 10:36 Intake & Output 01/29/21 01/30/21 01/30/21 18:59 06:59 18:59 Weight 79.379 kg
== END ==
LOC: PNWHC3 10:28
PROVIDERS: ATTEND Anesthesiology
DX: M47.812 Spondylosis without myelopathy or radiculopathy, cervical region (principal); M47.816 Spondylosis without myelopathy or radiculopathy, lumbar region; M51.26 Other intervertebral disc displacement, lumbar region; M79.18 Myalgia, other site; M43.22 Fusion of spine, cervical region; F17.200 Nicotine dependence, unspecified, uncomplicated; Z91.041 Radiographic dye allergy status; Z88.2 Allergy status to sulfonamides; Z91.013 Allergy to seafood; Z91.030 Bee allergy status
CPT/HCPCS: 99211

== ENCOUNTER 2021-03-18 11:24 | Day surgery (SDC) | payer MEDICARE ==
[2021-03-11 14:27] VITALS: BMI 25.1
[2021-03-18] MEDS ORDERED: LACTATED RINGERS 1,000 ML IV ONE (11:50)
[2021-03-18 11:53] VITALS: TEMP 98.6
[2021-03-18] MEDS ORDERED: ROPIVACAINE 5MG/ML 20ML VIAL ONE (12:11)
[2021-03-18] MEDS ORDERED: MIDAZOLAM 2 MG/2 ML VIAL ONE (12:11)
[2021-03-18] MEDS ORDERED: methylPREDNISolone ACETATE 40 MG/ML 1 ML VIAL ONE (12:11)
[2021-03-18] MEDS ORDERED: fentaNYL (PF) 50 MCG/ML 2 ML AMP ONE (12:11)
--- NOTE | 2021-03-18 12:33 | P.PCN ---
Date of Procedure: 03/18/21 Procedure(s) Performed: Procedure= trigger point injections cervical paraspinal muscles bilaterally, trapezius muscles bilaterally, supraspinatus muscle bilaterally (total 7 trigger point identified 4 on the right side ,and 3 on the left side cervical area Preoperative diagnosis= 1-fashion pain syndrome cervical area, 2-cervical spondylosis and cervical facet arthropathy. Postoperative diagnosis=Same as preop Diagnosis . Complication = none Condition= stable Anesthesia= moderate sedation with intravenous Versed 2 mg , and fentanyl 50 micrograms . Indication for the procedure= patient complaining of sever neck pain , examination was positive for a trigger point in the cervical paraspinal muscles and trapezius and supraspinatus muscles and is here to have trigger point injections Description of the procedure= the trigger point identified in the preop holding area patient taken to the procedure room placed in the sitting position, then monitors applied to the patient and after induction of anesthesia, the neck area prepped with chlorhexidine 3 then under sterile technique each of the trigger point injected with a mixture of ropivacaine 0.5% 14 ML and 40 mg of Depo-Medrol mixed together and 2 ml of the mixture ejected at each trigger point after negative aspiration, there was no paresthesia during the injection, injection done using 25-gauge needle, a total of 7 trigger point injected 4 on the right side cervical paraspinal muscles and trapezius muscles supraspinatus muscles , and the same muscles injected on the left side, a total of 3 trigger point identified on the left side patient tolerated the procedure well without any complications and he will follow up in the pain clinic in a few weeks
[2021-03-18 13:05] VITALS: BP 95/59; PULSE 97; RESP 16
== END 2021-03-18 13:15 | disposition home or self-care (01) ==
LOC: ORPAIN 11:24
PROVIDERS: ATTEND Specialist
DX: M47.812 Spondylosis without myelopathy or radiculopathy, cervical region (principal); M79.18 Myalgia, other site; Z91.041 Radiographic dye allergy status; Z91.048 Other nonmedicinal substance allergy status
CPT/HCPCS: 20553; J2250; J1030; J3010; J2795

== ENCOUNTER → 2021-04-09 | Outpatient (CLI) | payer MEDICARE ==
[2021-04-09 14:17] VITALS: BP 110/74; PULSE 78; RESP 18; TEMP 97.6
--- NOTE | 2021-04-09 14:38 | P.PN ---
Subjective Progress Note Date: 04/09/21 This is a follow-up visit for this 44 years old male, with a chronic history of severe neck pain and low back pain,he is Diagnosed with with cervical spondylosis with cervical facet arthropathy, recently we did trigger point injection in the cervical area which helped his neck pain , and previously we have done RFA of the medial branch cervical area, he reported that his neck pain improved significantly he just complaining of some small area of numbness on the right side cervical area, he denies any motor or sensory deficit, patient reports that is having severe mid back pain between the shoulder blade area, constant increased with any activity interfere with the quality of life, patient denies any fever or night sweats. Denies any change in the bowel movement or urination Physical Examinations : -Constitutiona : Cooperative , not in acute distress . -HEENT : nech : supple , no Lymphadenopathy , normal thyroid size . : eyes : no ptosis , no icterus, no photophobia . : ENT : normal of hearing , normal oropharynx , no Thrush . - Respiratory : Chest clear to auscultations Bilaterally , no wheezing , no Rhonchi . - Cardiovascula : regular rate and rhythem , S1 , S2 , no S3 , no S4. - Gastrointestina : abdomen soft no tenderness , bowel sounds , no organomegally . - Genitourinary : Defferred . - neurologic : Cranial nerve II to XII intact , no focal neurological deffecit . -psychatric : alert , oriented X 3 , appropriate affect , intact judgment and insight . -Lymphatic : no Lymphadenopathy . - musculoskeltal : Cervical Spine motor stregnth in the deltoid and biceps, normal right side , normal Left side motor stregnth biceps and the wrist extensors normal right side ,normal left side . motor stregnth in the triceps muscle . normal Right side , normal Left side Thoracic spine= multiple trigger point identified in the thoracic paraspinal muscles Facet loading test positive in the mid upper thoracic area from T4 to T8 Lumber spine moter stegnth lower extremities ,thigh and legs 5/5 Right side , 5/5 Left side Assessment and plan= 1-neck pain secondary to cervical spondylosis with cervical facet arthropath 2-myofascial pain syndrome cervical and thoracic area 3-thoracic spondylosis with thoracic facet arthropathy. neck pain improved after trigger points cervical area Patient could benefit from chiropractic's/massage therapy and tried for 6 weeks the patient will follow up in the pain clinic after that, if he continued to have pain with order MRI of the thoracic spine Time with Patient: Less than 30 PQRS Measure Charge Sheet Measure #130: Documentation of Current Meds in Medical Chart: Patient's medications documented in chart Measure #226: Tobacco Use: Screen & Cessation Intervention: Pt screened for tobacco use AND intervention given Measure #111: Pneumonia Vaccination: Pneumococcal vaccine administered or previously received Measure #47: Advance Care Plan: Advance care planning discussed & documented, pt chose/unable to give Measure #412: Opioid Treatment Agreement: No documentation of signed opioid treatment agreement Measure #408: Opioid Therapy Follow-up Evaluation: Patient had NO f/u eval minimum every 3 months during opioid therapy Measure #317: Preventitive Care & Scrn High Bld Press & F/U: Normal blood pressure, f/u not required Measure #128: Body Mass Index (BMI) Screening & Follow-up: BMI documented within normal parameters Measure #131: Pain Assessment & Follow-up: Pain positive & plan documented, Follow-up scheduled Measure #431: Unhealthy Alcohol Use Preventative Care & Scrn: Patient not identified as an unhealthy alcohol user PQRS Narrative: Objective - Vital Signs Vital signs: Vital Signs Temp 97.6 F 04/09/21 14:03 Pulse 78 04/09/21 14:03 Resp 18 04/09/21 14:03 BP 110/74 04/09/21 14:03 Pulse Ox 94 L 04/09/21 14:03
== END ==
LOC: PNWHC3 13:18
PROVIDERS: ATTEND Specialist
DX: M47.812 Spondylosis without myelopathy or radiculopathy, cervical region (principal); M79.18 Myalgia, other site; M47.814 Spondylosis without myelopathy or radiculopathy, thoracic region; F17.200 Nicotine dependence, unspecified, uncomplicated; Z98.890 Other specified postprocedural states; Z91.041 Radiographic dye allergy status; Z91.030 Bee allergy status; Z88.2 Allergy status to sulfonamides; Z91.013 Allergy to seafood
CPT/HCPCS: 99211

== ENCOUNTER → 2022-01-16 | Outpatient (CLI) | payer MEDICARE ==
--- NOTE | 2022-01-17 08:07 | XR ---
EXAMINATION TYPE: XR chest 2V DATE OF EXAM: 01/16/2022 2:35 PM COMPARISON: Chest radiographs from 08/15/2014 TECHNIQUE: XR chest 2V Frontal and lateral views of the chest. CLINICAL INDICATION:Male, 46 years old with history of R06.02 SHORTNESS OF BREATH; FINDINGS: Lungs/Pleura: There is no evidence of pleural effusion, focal consolidation, or pneumothorax. Pulmonary vascularity: Unremarkable. Heart/mediastinum: Cardiomediastinal silhouette is unremarkable. Musculoskeletal: No acute osseous pathology. IMPRESSION: No acute cardiopulmonary disease/process.
== END | disposition home or self-care (01) ==
LOC: RADXRMAIN 14:24
PROVIDERS: ATTEND Internal Medicine
DX: R06.02 Shortness of breath (principal)
CPT/HCPCS: 71046

== ENCOUNTER 2022-02-11 05:46 | Day surgery (SDC) | payer MEDICARE ==
[~2022-02-11 05:46] MED LIST changes: +ACETAMINOPHEN TAB 500 MG TAB PO PRN; +HEPARIN SODIUM,PORCINE/PF 5,000 UNIT/0.5 ML SYRINGE SQ PRN; -LACTATED RINGERS 1,000 ML IV SCH; -LIDOCAINE 1% 20 ML VIAL (10MG/ML) FOR IV START INTRADERMA PRN; -MIDAZOLAM 2 MG/2 ML VIAL ONE; -fentaNYL (PF) 50 MCG/ML 2 ML AMP ONE; -methylPREDNISolone ACETATE 40 MG/ML 1 ML VIAL ONE
[2022-02-11] MEDS ORDERED: DEXAMETHASONE SOD PHOSPHATE 4 MG/ML 1 ML VIAL IV ONE (06:07)
[2022-02-11] MEDS ORDERED: LACTATED RINGERS 1,000 ML IV SCH (06:07)
[2022-02-11] MEDS ORDERED: ONDANSETRON 4 MG/2 ML VIAL IVP ONE (06:07)
[2022-02-11] MEDS ORDERED: fentaNYL (PF) 50 MCG/ML 2 ML AMP IV ONE (07:25)
[2022-02-11] MEDS ORDERED: MIDAZOLAM 2 MG/2 ML VIAL IV ONE (07:25)
[2022-02-11] MEDS ORDERED: PHENYLEPHRINE-0.9% NACL SYG 1,000 MCG/10 ML SYRINGE ONE (07:46)
[2022-02-11] MEDS ORDERED: ROCURONIUM 10 MG/ML (5 ML VIAL) IV ONE (07:46)
[2022-02-11] MEDS ORDERED: SUCCINYLCHOLINE CHLORIDE 200 MG/10 ML VIAL IV ONE (07:46)
[2022-02-11] MEDS ORDERED: NEOSTIGMINE 1 MG/ML 10 ML VIAL ONE (07:46)
[2022-02-11] MEDS ORDERED: MIDAZOLAM 2 MG/2 ML VIAL ONE (07:46)
[2022-02-11] MEDS ORDERED: GLYCOPYRROLATE 0.2 MG/ML 2 ML VIAL ONE (07:46)
[2022-02-11] MEDS ORDERED: PROPOFOL 10 MG/ML 20 ML VIAL IV ONE (07:46)
[2022-02-11] MEDS ORDERED: ROPIVACAINE 5 MG/ML 30 ML VIAL ONE (07:46)
[2022-02-11] MEDS ORDERED: SODIUM CHLORIDE 0.9% (PF) 10 ML VIAL ONE (07:46)
[2022-02-11] MEDS ORDERED: KETAMINE 10 MG/ML 20 ML VIAL ONE (07:46)
[2022-02-11] MEDS ORDERED: fentaNYL (PF) 50 MCG/ML 2 ML AMP ONE (07:46)
[2022-02-11] MEDS ORDERED: LIDOCAINE 2% INJ 20 MG/ML (2 ML VIAL) ONE (07:46)
[2022-02-11] MEDS ORDERED: ceFAZolin 1,000 MG VIAL IV ONE (07:52)
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
[2022-02-11] MEDS ORDERED: BUPIVACAINE (PF) 0.25% 30 ML VIAL SQ ONE ×2 (08:18→08:46)
--- NOTE | 2022-02-11 09:03 | P.OP ---
Date of Procedure: 02/11/22 Preoperative Diagnosis: Recurrent left internal hernia Right inguinal hernia Postoperative Diagnosis: Same Procedure(s) Performed: Open repair of recurrent left inguinal hernia Open repair of right inguinal hernia Anesthesia: NIKOS Surgeon: Dimitri Crockett Estimated Blood Loss (ml): 10 Pathology: none sent Condition: stable Disposition: PACU Description of Procedure: DESCRIPTION OF PROCEDURE: The patient was placed in the supine position after receiving adequate anesthesia. Patients groin was prepped and draped in the usual sterile fashion. A standard hernia incision was made in the left groin and the subcutaneous tissues were divided with electrocautery. The fascia of the external oblique was exposed. A joann the fascia was made with #15 blade. The fascia was then opened with pair of Metzenbaum scissors. There were previous suture seen from his previous repair. A Weitlaner retractor was placed in the wound and the cord structures were grasped and dissected free from the inguinal canal. A rubber Parnell drain was placed around the cord structu res. The hernial sac was seen on the anterior-medial portion of the cord and this was dissected free from the cord. The hernia sac was then invaginated to the peritoneal cavity. Next a piece of Prolene mesh was cut to appropriate size. The mesh was secured to the pubic tubercle medially. It was secured to the shelving edge of the inguinal ligament. 2-0 Prolene was used. The lateral leafs were wrapped around the cord structures. The fascia external oblique was then closed 0 Vicryl. Kenan's fascia closed with 2-0 Vicryl. Skin was closed interrupted 3-0 Monocryl suture. Next the right inguinal hernias repaired. A standard hernia incision was made and the subcutaneous tissues were divided with electrocautery. The fascia of the external oblique was exposed. A joann the fascia was made with #15 blade. The fascia was then opened with pair of Metzenbaum scissors. A Weitlaner retractor was placed in the wound and the cord structures were grasped and dissected free from the inguinal canal. A rubber Adilson drain was placed around the cord structures. The hernial sac was seen on the anterior-medial portion of the cord and this was dissected free from the cord. The hernia sac was then invaginated to the peritoneal cavity. Using blunt finger dissection, the preperitoneal space was dissected and then the Prolene medium-sized hernial mesh plug was placed into the prepared space. The inferior leaf was expanded. The superior leaf was secured to the pubic tubercle using 2-0 Prolene suture. The lateral portion of the superior leaf was incised and cords tied and secured to the transversalis fascia using 2- 0 Prolene suture. Fascia of the external oblique was then closed using #0 Vicryl suture. The Adilson drain was removed. The Scarpas fascia was then closed with 3-0 Vicryl suture and skin was closed with rody. The patient tolerated the procedure well.
[2022-02-11 09:12] VITALS: TEMP 97.4
[2022-02-11] MEDS: HYDROmorphone 0.5 MG/0.5 ML SYRINGE IVP PRN ×3 (09:13→09:36)
[2022-02-11] MEDS ORDERED: LACTATED RINGERS 1,000 ML IV ONE (09:23)
[2022-02-11 09:58] VITALS: RESP 16
[2022-02-11 10:15] VITALS: PULSE 69
[2022-02-11 10:42] VITALS: BP 114/69
--- NOTE | 2022-02-11 11:39 | P.ANPRN ---
Procedure Note - Anesthesia - Nerve Block Performed Bilateral Erector Spinae Time Out Performed: Yes (:) Date of Procedure: 02/11/22 Procedure Start Time: Procedure Stop Time: Location of Patient: PreOp Indication: Acute Post-Operative Pain, Requested by Surgeon (Dr Crockett) Sedation Type: Sedate with meaningful contact maintained Preparation: Sterile Prep Position: Prone Catheter: None Needle Types: Pajunk Needle Gauge: 21 Ultrasound used to visualize needle placement: Yes Ultrasound used to observe medication spread: Yes Injectate: 0.5% Ropivacaine (see comment for volume) (15cc +10 ccPF Normal saline each side) Blood Aspirated: No Pain Paresthesia on Injection Noted: No Resistance on Injection: Normal Image Stored and Saved: Yes Events: Uneventful and Well Tolerated
== END 2022-02-11 11:08 | disposition home or self-care (01) ==
LOC: OR 05:46
PROVIDERS: ATTEND Surgery
DX: K40.20 Bilateral inguinal hernia, without obstruction or gangrene, not specified as recurrent (principal); M19.90 Unspecified osteoarthritis, unspecified site; Z87.39 Personal history of other diseases of the musculoskeletal system and connective tissue; Z90.49 Acquired absence of other specified parts of digestive tract; Z98.890 Other specified postprocedural states; Z80.8 Family history of malignant neoplasm of other organs or systems; Z79.899 Other long term (current) drug therapy; Z91.030 Bee allergy status; Z88.2 Allergy status to sulfonamides
CPT/HCPCS: 64999; 49521; C1781 ×2; J2250; J0330; J1100; J2710; J0690; J2405; J3010; J2795; J2370; J2704; J1170; J1644; J2001

== ENCOUNTER → 2022-07-06 | Outpatient (CLI) | payer MEDICARE ==
[2022-07-06 10:58] VITALS: BP 124/81; PULSE 91; RESP 18; TEMP 98.6
--- NOTE | 2022-07-06 14:43 | P.PAINPG ---
PQRS Measure Charge Sheet Comment: A 47 yr old male with a history of severe and chronic cervical pain secondary to cervicogenic headache and occipital neuralgia presents today for neck pain. Pain level is provoked at 8/10 in intensity, constant, localized in the cervical spine, sharp in character w shooting towards the base of the head. Pain is provoked by staying in 1 position for periods of 20 min or more. Pain is alleviated with chiropractic treatments 5 yrs ago, ice, meds (Isabella, Ibu), repositioning and rest. Interventional pain procedures completed include BL RFA C2-C4, Cervical TPIs, TFESIs Lumbar Patient is currently on Isabella, Ibu Patient denies any side effects of the medication(s), denies excessive drowsiness or sleepiness, denies suicidal ideation and reports that the current pain medication is helping to control the pain and improve activities of daily living. Patient denies any motor or sensory deficits. Patient denies any fever or night sweats, denies any change in the bowel movements or urination. Physical Examination: -Constitutional: Cooperative. Not in acute distress . - Neurologic: Cranial nerve II to XII intact. No focal neurological deficits. - Psychatric: Alert & oriented x 3. Matching mood & appropriate affect. Judgment and insight intact. - Musculoskeletal: Cervical spine: Muscle bulk/ tone/ strength in the bilateral upper extremities normal Vertebral body tenderness to palpation over Spurling test positive Distraction test positive Facet loading test positive TTP over BL C2-C3, C3-C4 facets Thoracic spine Muscle bulk / tone/ strength in the bilateral paraspinal muscles normal Vertebral body tender to palpation over Facet loading test positive TTP Lumbar spine: Motor bulk/ tone/ strength lower extremities , thigh and legs : 5/5 Deep tendon reflexes : Normal Knee Jerk. Normal Ankle Jerk . Vertebral body tenderness to palpation over Lumbar Facet Loading Test positive Straight Leg Raise: positive at 30 degrees right side/ left side Gaenslen's Test positive Sacral spine : Severe tenderness over the Sacroiliac joint: right side / left side Range of motion: Flexion of the lumbar spine <60 degrees Range of motion: Extension of the lumbar spine <20 degrees Gaenslen's Test positive right side / left side Ryan test: positive right side / left side Thigh Thrust Test positive right side / left side Sacral Thrust Test positive right side / left side Assessment and plan: Chronic neck pain secondary to cervicogenic TURNER and occipital neuralgia Recommendation of PT x 6 wks re: M50.30. All questions answered. I have spent less than 30 minutes on patient care today. Dr Mora was available by phone for the evaluation of this patient. The time was used to review the medical records including relevant urine studies and Prescription history (MAPs), review of the available imaging, evaluation and examination of the patient, coordination of care with the medical staff and if applicable referring physicians, as well as creation of the medical record PQRS Narrative: Smoking Status Current every day smoker Hx Alcohol Use (MH) No Home Medications: Ambulatory Orders Ergocalciferol (Vitamin D2) [Vitamin D2] 50,000 unit PO SA 09/27/17 Fluticasone Nasal [place] [Flonase Nasal [place]] 1 spray EA NOSTRIL DAILY PRN 09/27/17 Tamsulosin [Flomax] 0.4 mg PO BID 09/27/17 HYDROcodone/APAP 10-325MG [[place] 10-325] 1 tab PO TID PRN 01/05/19 Ascorbic Acid [Vitamin C 250 mg Tablet Chew] 250 mg PO DAILY 03/29/19 Multivitamins, Thera [Multivitamin (formulary)] 1 tab PO DAILY 03/29/19 Baclofen 10 mg PO HS PRN 01/29/21 Simvastatin [Zocor] 40 mg PO HS 01/29/21 L.acidoph,Paracasei, B.lactis [Probiotic] 1 each PO DAILY 04/07/21 Acetaminophen Tab [Tylenol] 650 mg PO Q6H #30 tab 02/11/22 Docusate [Colace] 100 mg PO BID #20 capsule 02/11/22 Ibuprofen [Motrin] 600 mg PO Q6HR PRN #40 tab 02/11/22 oxyCODONE HCL [OxyIR] 5 mg PO Q6H PRN 3 Days #10 tab 02/11/22 Controlled Substance Measures - Controlled Substance Measures Is patient prescribed a controlled substance at discharge?: No
== END ==
LOC: PNWHC3 10:20
PROVIDERS: ATTEND Specialist
DX: M54.81 Occipital neuralgia (principal); G44.86 Cervicogenic headache; G89.29 Other chronic pain; M51.26 Other intervertebral disc displacement, lumbar region; F17.200 Nicotine dependence, unspecified, uncomplicated; M48.02 Spinal stenosis, cervical region; Z91.041 Radiographic dye allergy status; Z88.2 Allergy status to sulfonamides; Z91.013 Allergy to seafood; Z91.02 Food additives allergy status
CPT/HCPCS: 99211

== ENCOUNTER → 2023-12-23 | Outpatient (CLI) | payer MEDICARE ==
--- NOTE | 2023-12-23 18:17 | MR ---
EXAMINATION TYPE: MR cervical spine wo con DATE OF EXAM: 12/23/2023 COMPARISON: 06/24/2022 HISTORY: Neck pain, headaches, weakness in fingers. Hx ablation. CONTRAST: Performed utilizing 0 mL intravenous Gadavist gadolinium contrast. TECHNIQUE: Multiplanar multiecho imaging on a 3.0 Whit magnet is performed through the cervical spin e. FINDINGS: The craniovertebral junction is normal. Vertebral body alignment is normal. Posterior to the T1 level in the left paracentral region axial plane images there is a moderate size defect. Jacobs mandi, this area posterior to the T1 vertebral body is not identified in sagittal plane images. Conside r upper thoracic spine MRI for additional evaluation. Correlate with left T1 radicular symptoms. Seri es 601, image 1. C7-T1: No focal disc herniation or significant disc bulge is evident. No spinal canal stenosis or n eural foraminal stenosis is present. C6-7: Mild broad-based disc bulge has minimal anterior thecal sac contact. No AP spinal canal stenosi s is present. This is in close approximation with the spinal cord. Some subligamentous disc extension beyond the C7 endplate may be present. Neural foramen appear patent.. 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 No focal disc herniation is evide nt. Residual disc at C5-6 is present. No spinal canal stenosis or neural foraminal stenosis. C4-5: No focal disc herniation or significant disc bulge is evident. No spinal canal stenosis or terra ral foraminal stenosis is present. C3-4: Broad-based disc bulge has mild anterior thecal sac flattening. No cord contact is evident. No spinal canal stenosis or neural foraminal stenosis is present.. C2-3: No focal disc herniation or significant disc bulge is evident. No spinal canal stenosis or terra ral foraminal stenosis is present. IMPRESSION: 1. Broad-based disc bulge with minimal anterior thecal sac flattening C3-4. No stenosis present. 2. Suggestion of subligamentous disc herniation C6-C7 with mild anterior thecal sac flattening. No co rd contact or spinal canal stenosis present. 3. Possible small disc herniation with moderate thecal sac impression posterior to the left T1 parace ntral to left lateral direction. This is not identified on the sagittal images. Consider additional w orkup with upper thoracic MRI
== END | disposition home or self-care (01) ==
LOC: RADMRIMAIN 16:00
PROVIDERS: ATTEND Internal Medicine
DX: M54.2 Cervicalgia
CPT/HCPCS: 72141

== ENCOUNTER → 2024-01-07 | Outpatient (CLI) | payer MEDICARE ==
--- NOTE | 2024-01-08 23:25 | MR ---
INDICATION: Patient age:Male; 48 years old; Reason for study: M546 PAIN IN T-SPINE; [facility]. COMPARISON: MR C-spine/T-spine/L-spine 12/14/2018, MR C-spine 12/23/2023. TECHNIQUE: Multi planar, multi sequence imaging was performed utilizing: T1-weighted, T2-weighted, an d turbo inversion recovery imaging of the thoracic spine. The patient was not given Gadolinium. FINDINGS: The thoracic vertebral bodies have preserved heights and alignment. The osseous structure have normal signal intensity. Thoracic spinal cord appears unremarkable. Multilevel Schmorl's nodes. No significant central canal or neuroforaminal stenosis at T1-T2. Left paracentral T2-T3 disc osteophyte complex with mild narrowing of the central canal. Mild left ne uroforaminal stenosis. Right neural foramen is patent. Left paracentral T3-T4 disc osteophyte complex with mild narrowing of the central canal. Mild left ne uroforaminal stenosis. Right neural foramen is patent. T3-T4 broad-based disc bulge with mild effacement of the anterior thecal sac. No significant central canal narrowing. No neural foraminal stenosis. T4-T5 broad-based disc bulge which is most prominent along the left paracentral canal. Mild effacemen t of the anterior thecal sac. No significant central canal narrowing. No neural foraminal stenosis. T5-T6 small central disc herniation with mild to moderate anterior thecal sac effacement. No signific ant central canal stenosis. No neural foraminal stenosis. No significant central canal or neuroforaminal stenosis at T6-T7. T7-T8 broad based disc bulge with mild effacement of the anterior thecal sac. No significant central canal stenosis. No neural foraminal stenosis. T8-T9 tiny left paracentral disc herniation with mild effacement of the anterior thecal sac. No signi ficant central canal stenosis. No neuroforaminal stenosis. No significant central canal or neuroforaminal stenosis at T9-T10. T10-T11 left paracentral minimal disc bulge without effacement of the anterior thecal sac. No signifi cant central canal stenosis. No neuroforaminal stenosis. T12-L1 broad-based disc bulge without significant effacement of the anterior thecal sac or significan t central canal stenosis. No neural foraminal stenosis. IMPRESSION: 1. T5-T6 disc herniation with mild to moderate effacement of the spinal cord redemonstrated. Addition al small disc herniation T8-T9 with mild effacement of the spinal cord. 2. Multilevel degenerative disc disease as described above. Overall similar to prior MRI 2019. [facility], , 01/08/2024 11:23 PM
== END | disposition home or self-care (01) ==
LOC: RADMRIMAIN 20:46
PROVIDERS: ATTEND Internal Medicine
DX: M54.6 Pain in thoracic spine
CPT/HCPCS: 72146